=== PATIENT | female | born 1970 | race Caucasian/White ===

== ENCOUNTER 2017-02-02 09:27 | Inpatient (IN) | payer OTHER ==
[2017-02-02 10:45] LABS: % IMMATURE GRANULYOCYTES 0.3 % (0.0-1.1); ABSOLUTE IMMATURE GRANULOCYTES 0.03 10^3/uL (0.00-0.10); ADD DIFF? NO; ADD MORPH? NO; ADD SCAN? NO; ATYPICAL LYMPHOCYTE FLAG 0 (0-99); FRAGMENT RBC FLAG 0 (0-99); HEMOGLOBIN 15.1 g/dL (12.6-16.3); LEFT SHIFT FLG 0 (0-99); LIPEMIA HEMOLYSIS FLAG 80 (0-99); MEAN CELL HEMOGLOBIN 34.4 pg (27.9-34.1); MEAN CELL HEMOGLOBIN CONCENTR. 33.6 g/dL (32.4-36.7); MEAN CELL VOLUME 102.5 fL (81.5-99.8); PLATELET CLUMPS FLAG 20 (0-99); PLATELET COUNT 202 10^3/uL (150-400); RED BLOOD CELL COUNT 4.39 10^6/uL (4.18-5.33); RED CELL DISTRIBUTION WIDTH 12.4 % (11.5-15.2)
[2017-02-02] MEDS ORDERED: levETIRAcetam 500 MG in NS 100 ML IV ONE (10:57)
[2017-02-02 10:58] LABS: ALANINE AMINOTRANSFERASE 22 IU/L (9-52); ALKALINE PHOSPHATASE 61 IU/L (38-126); ANION GAP 12 mEq/L (8-16); ASPARTATE AMINOTRANSFERASE 15 IU/L (14-46); BILIRUBIN,TOTAL 1.1 mg/dL (0.1-1.4); BILIRUBIN-CONJUGATED 0.4 mg/dL (0.0-0.5); BILIRUBIN-UNCONJUGATED 0.7 mg/dL (0.0-1.1); CARBON DIOXIDE 24 mEq/l (22-31); CHLORIDE 107 mEq/L (97-110); CREATININE 0.7 mg/dL (0.6-1.0); ETHANOL SERUM < 10 mg/dL (0-10); GLOMERULAR FILTRATION RATE > 60; GLUCOSE 94 mg/dL (70-100); POTASSIUM 3.7 mEq/L (3.5-5.2); SALICYLATE < 1.0 mg/dL (2.0-20.0); SODIUM 143 mEq/L (134-144); TOTAL PROTEIN 7.2 g/dL (6.3-8.2)
[2017-02-02] MEDS ORDERED: levETIRAcetam 1,000 MG in NS 100 ML IV ONE (11:06)
[2017-02-02] MEDS ORDERED: IOPAMIDOL (ISOVUE 370) 100 ML BTL IV ONE (11:20)
--- NOTE | 2017-02-02 11:39 | EDPHY ---
H & P Smoking Status: Current every day smoker Time Seen by Provider: 02/02/17 09:35 HPI/ROS: CHIEF COMPLAINT: Headache, altered mental status HISTORY OF PRESENT ILLNESS: 46-year-old female presents to the emergency department with headache and altered mental status. The patient states that she developed abrupt onset of a headache 1 week ago, Wednesday. She went to [facility] following day, and the patient states "they did nothing ". The patient presents to the emergency department now with persisting, worsening headache and altered mental status. No vomiting. No diarrhea. She has not eaten much. She does not have a history of alcoholism and has been drinking. Her last drink was last night. She also has a history of chronic back pain and takes oxycodone, 4 tablets daily, and ran out of this medication a few days ago. No abdominal pain. No chest pain or difficulty breathing. She was having some blurry vision although does not notice this now. No double vision. REVIEW OF SYSTEMS: Constitutional: No fever, no chills. Eyes: Blurry vision as above. No double vision ENT: No sore throat. Respiratory: No cough, no shortness of breath. Cardiac: No chest pain. Gastrointestinal: No abdominal pain, vomiting or diarrhea. Genitourinary: No dysuria. Musculoskeletal: No neck or back pain. Skin: No rashes. Neurological: Headache (Maggie Cisneros) Past Medical/Surgical History: Alcoholism, chronic back pain, migraine headaches (Maggie Cisneros M) Social History: (Maggie Cisneros) Physical Exam: General Appearance: lethargic, no distress. Eyes: Pupils equal and round. Extraocular motions are all intact. ENT: Mouth: Mucous membranes moist. Respiratory: No wheezing, rhonchi, or rales, lungs are clear to auscultation. Cardiovascular: Regular rate and rhythm. Gastrointestinal: Abdomen is soft and nontender, no masses, no rebound or guarding, bowel sounds normal. Neurological: lethargic, confused on date and time. cranial nerves II through XII grossly intact Skin: Warm and dry, no rashes. Musculoskeletal: Nontender to palpate along the cervical, thoracic or lumbar spine. Neck is supple. Extremities: Full range of motion and no peripheral edema. Psychiatric: no agitation. (Maggie Cisneros M) Constitutional: Initial Vital Signs Temperature (C) 36.8 C 02/02/17 09:32 Heart Rate 83 02/02/17 09:32 Respiratory Rate 18 02/02/17 09:32 Blood Pressure 135/88 H 02/02/17 09:32 O2 Sat (%) 96 02/02/17 09:32 O2 Delivery Mode Room Air O2 (L/minute) 2 Allergies/Adverse Reactions: No Known Allergies Allergy (Unverified 02/02/17 09:31) Home Medications: Medication Instructions Recorded Gabapentin [Neurontin 300 MG (*)] 300 mg PO BID 02/02/17 Lisinopril [Zestril 10 mg (*)] 10 mg PO DAILY 02/02/17 Naproxen [Naprosyn] 500 - 1,000 mg PO BID 02/02/17 oxyCODONE HCL/ACETAMINOPHEN 1 each PO Q6HRS PRN 02/02/17 [Percocet 10-325 mg Tablet] Medical Decision Making - Diagnostics Imaging Results: Imaging Impressions Head CT 02/02/17 10:34 Impression: Acute subarachnoid hemorrhage with early hydrocephalus. Suspicious for rupture of right anterior communicating or proximal right middle cerebral artery aneurysm. Recommend CT angiography for further evaluation. Results called and discussed with MAGGIE CISNEROS, at 02/02/2017 11:03 . General information for patients regarding this examination can be found at [email or web address]. If you have questions or comments about this report, please contact me at (hospital) or [phone] (cell). ED Course/Re-evaluation: I discussed this case with Maggie Cisneros and reviewed all of the studies including the brain scan. Also laboratory studies. I evaluated the patient and although she has altered mental status she has no peripheral neurologic deficits. We spoken to Dr. Vaca from Neurosurgery. We will prophylax the patient for seizures with 1 g of Keppra IV. She will be admitted to the intensive care unit. The neurosurgical team is down here now. We are watching her alcohol withdrawal. She will receive benzodiazepines as needed based on the CIWA scale. Medicine will consult on the patient in the ICU. (Ant Pascual) Given the abrupt onset of headache and altered mental status, CT scan with out contrast of the brain was ordered which revealed subarachnoid hemorrhage in the midline as well as to the right of midline. The hydrocephalus is noted. Patient also has low density noted on the right side of her brain which could represent early infarct. Case was discussed with Dr. Ant Pascual, secondary supervising physician. She was given 1 g of IV Keppra. I spoke with Dr. Sly Morel, on-call neurosurgeon, who will come to evaluate the patient and patient will be admitted to the ICU. I also spoke with JUAREZ Orellana with hospitalist, who recommended that after the neurosurgeon evaluated the patient, they would be happy to consult on the patient. CT angiogram of the head and neck reveal 5.5 x 5 x 4 mm anterior communicating arterial aneurysm. I spoke with in her Maria Teresa, on-call neurosurgeon, about the findings and he is aware. The patient is planning to be admitted to the ICU with ventriculostomy placement. (Maggie Cisneros) Differential Diagnosis: Headache including but not limited to subarachnoid hemorrhage, migraine headache , tension headache and infectious causes such as meningitis, pharyngitis and sinusitis. (Maggie Cisneros) - Data Points Laboratory Results: Laboratory Results 02/02/17 10:38 02/02/17 10:38 02/02/17 02/02/17 10:38 10:38 WBC 8.91 10^3/uL 10^3/uL (3.80-9.50) RBC 4.39 10^6/uL 10^6/uL (4.18-5.33) Hgb 15.1 g/dL g/dL (12.6-16.3) Hct 45.0 % % (38.0-47.0) MCV 102.5 fL H fL (81.5-99.8) MCH 34.4 pg H pg (27.9-34.1) MCHC 33.6 g/dL g/dL (32.4-36.7) RDW 12.4 % % (11.5-15.2) Plt Count 202 10^3/uL 10^3/uL (150-400) MPV 12.0 fL H fL (8.7-11.7) Neut % (Auto) 74.8 % H % (39.3-74.2) Lymph % (Auto) 19.2 % % (15.0-45.0) Lyman % (Auto) 5.4 % % (4.5-13.0) Eos % (Auto) 0.1 % L % (0.6-7.6) Baso % (Auto) 0.2 % L % (0.3-1.7) Nucleat RBC Rel Count 0.0 % % (0.0-0.2) Absolute Neuts (auto) 6.66 10^3/uL H 10^3/uL (1.70-6.50) Absolute Lymphs (auto) 1.71 10^3/uL 10^3/uL (1.00-3.00) Absolute Monos (auto) 0.48 10^3/uL 10^3/uL (0.30-0.80) Absolute Eos (auto) 0.01 10^3/uL L 10^3/uL (0.03-0.40) Absolute Basos (auto) 0.02 10^3/uL 10^3/uL (0.02-0.10) Absolute Nucleated RBC 0.00 10^3/uL 10^3/uL (0-0.01) Immature Gran % 0.3 % % (0.0-1.1) Immature Gran # 0.03 10^3/uL 10^3/uL (0.00-0.10) Sodium 143 mEq/L mEq/L (134-144) Potassium 3.7 mEq/L mEq/L (3.5-5.2) Chloride 107 mEq/L mEq/L (97-110) Carbon Dioxide 24 mEq/l mEq/l (22-31) Anion Gap 12 mEq/L mEq/L (8-16) BUN 21 mg/dL mg/dL (7-23) Creatinine 0.7 mg/dL mg/dL (0.6-1.0) Estimated GFR > 60 Glucose 94 mg/dL mg/dL (70-100) Calcium 10.0 mg/dL mg/dL (8.5-10.4) Total Bilirubin 1.1 mg/dL mg/dL (0.1-1.4) Conjugated Bilirubin 0.4 mg/dL mg/dL (0.0-0.5) Unconjugated Bilirubin 0.7 mg/dL mg/dL (0.0-1.1) AST 15 IU/L IU/L (14-46) ALT 22 IU/L IU/L (9-52) Alkaline Phosphatase 61 IU/L IU/L (38-126) Total Protein 7.2 g/dL g/dL (6.3-8.2) Albumin 4.0 g/dL g/dL (3.5-5.0) Salicylates < 1.0 mg/dL L mg/dL (2.0-20.0) Acetaminophen < 10 mcg/mL L mcg/mL (10-30) Ethyl Alcohol < 10 mg/dL mg/dL (0-10) Medications Given: Sodium Chloride (Ns) 1,000 mls @ 75 mls/hr IV CONT MILVIA Stop: 08/01/17 12:29 Last Admin: 02/02/17 14:18 Dose: 1,000 mls Nimodipine (Nimotop) 60 mg PO Q4HRS MILVIA Stop: 08/01/17 13:59 Last Admin: 02/02/17 14:00 Dose: Not Given Discontinued Medications Fentanyl (Sublimaze) 25 mcg IVP ONCE ONE Stop: 02/02/17 13:53 Last Admin: 02/02/17 13:58 Dose: 25 mcg Levetiracetam 1,000 mg/ Sodium (Chloride) 110 mls @ 440 mls/hr IV EDNOW ONE Stop: 02/02/17 11:20 Last Admin: 02/02/17 11:59 Dose: 110 mls Lidocaine/Epinephrine (Lidocaine 1%-Epi 1:100,000) 20 ml NB ONCE ONE Stop: 02/02/17 12:49 Last Admin: 02/02/17 13:59 Dose: 20 ml Midazolam HCl (Versed) 0.5 mg IVP ONCE ONE Stop: 02/02/17 13:53 Last Admin: 02/02/17 13:58 Dose: 0.5 mg Departure - Departure Disposition: [facility] Acute Clinical Impression: Subarachnoid hemorrhage, Aneurysm of anterior communicating artery Condition: Serious
[2017-02-02] MEDS ORDERED: ACETAMINOPHEN 325 MG TAB PO PRN (12:30)
[2017-02-02] MEDS ORDERED: LIDO/EPI 1% **Not for Epidural 20 ML MDV NB ONE (12:48)
[2017-02-02] MEDS ORDERED: niCARdipine/NACL 200 ML IV SCH (13:00)
[2017-02-02] MEDS ORDERED: fentaNYL 100 MCG/2 ML INJ ONE ×2 (13:03→15:35)
[2017-02-02] MEDS ORDERED: MIDAZOLAM 2 MG/2 ML VIAL ONE (13:03)
[2017-02-02] MEDS ORDERED: fentaNYL 100 MCG/2 ML INJ IVP ONE (13:52)
[2017-02-02] MEDS ORDERED: MIDAZOLAM 2 MG/2 ML VIAL IVP ONE (13:52)
[2017-02-02] MEDS: niMODipine 30 MG CAP PO SCH ×4 (14:00→21:47)
[2017-02-02] MEDS: NS 1,000 ML IV SCH ×2 (14:18→21:36)
--- NOTE | 2017-02-02 14:56 | ASMTCASEMG ---
Living Arrangements What is your living arrangement? Who do you live Answers: With Spouse with? Case Management Evaluation Functional: ADL / IADL Performance Deficits Due Answers: Chronic Illness to: Psychosocial Needs: Answers: Active Substance Abuse Discharge Plan Comments Coordination Status Comments Notes: 46yo female admitted for SNYDER, AMS, Has a hx of Chronic back pain-narc dependence, ETOH. Pt ran out o f her oxycodone meds. CT Scan revealed SAH, hydrocephalus. Pt lives w/her . CM to follow for D/C needs. Date Signed: 02/02/2017 02:55 PM Electronically Signed By:Claudia Acevedo
--- NOTE | 2017-02-02 15:08 | GCON ---
[f rep st] CONSULTATION TEACHER HEARING IMPAIRED CONSULTATION REASON FOR ADMISSION: Subarachnoid hemorrhage. HISTORY OF PRESENT ILLNESS: The patient is a 46-year-old female with a past medical histor y including alcoholism, chronic back pain and migraine headaches. She presented to the emergency ro om with complaints of headache and altered mental status. She apparently was seen at [facility] on the day prior, and was sent home. She returned with worsening headache, altered menta l status. There is no associated nausea or vomiting. She has been drinking excessive amounts of al cohol. She takes oxycodone for chronic back pain. PAST MEDICAL HISTORY: Significant for alcoholism, chronic back pain, migraines. SOCIAL HISTORY: No history of tobacco use. She drinks alcohol excessively. She is . Family is at the bedside. ALLERGIES: None known to medications. MEDICATION: At home include oxycodone, Naprosyn, lisinopril, gabapentin. PHYSICAL EXAMINATION: VITAL SIGNS: Blood pressure is 128/72, pulse 91, respirations 15, temperatur e 36.9, oxygen saturations 99% on 2 L. GENERAL: She is a mildly overweight, 46-year-old, female, who is somewhat sedated after receiving a ventriculostomy. HEENT: Eyes are PERRLA, EOMI. Throat shows no erythema or tonsillar hypertrophy. NECK: Supple. There is no cervical adenopathy. HEART: Regular rate and rhythm without murmurs, rubs, or gallops. LUNGS: Clear to auscultation. No wheeze or rhonchi. ABDOMEN: Soft, nontender. Bowel sounds are present in all 4 quadrants. E XTREMITIES: Show no clubbing, cyanosis, or edema. LABORATORIES: White count is 8.9, hemoglobin 15, hematocrit 45, platelet count is 202. MCV is elev ated at 102. Sodium 143, potassium 3.7, chloride 107, CO2 24, BUN 21, creatinine 0.7, glucose is 94 . Alcohol level is less than 10. CT scan of the head shows acute subarachnoid hemorrhage with early hydrocephalus. IMPRESSION: 1. Subarachnoid hemorrhage with hydrocephalus, and midline shift. 2. Status post ventriculostomy. 3. Alcoholism. 4. Chronic back pain. RECOMMENDATIONS: 1. Adequate pain control. 2. Deep vein thrombosis and pulmonary embolus prophylaxis. Holding anticoagulation for now. 3. Stress ulcer prophylaxis. 4. Possible clipping per interventional radiology. 5. 6. /[id number]/MODL
--- NOTE | 2017-02-02 15:16 | PDANEPAE ---
ANE History of Present Illness 46 yo F with ACom aneurysm here for IR coil ANE Past Medical History - Pulmonary History Hx Oxygen in Use at Home: No Hx Sleep Apnea: No - Endocrine History Hx Diabetes: No - Neurological & Psychiatric Hx Hx Neurological and Psychiatric Disorders: Yes Neurological / Psychiatric History Comment: alcoholic, last drink last night - Chronic Pain History Chronic Pain: Yes ANE Review of Systems - Exercise capacity Exercise capacity: >=4 METS ANE Patient History - Allergies Allergies/Adverse Reactions: No Known Allergies Allergy (Unverified 02/02/17 09:31) - Home Medications Home medications: home medication list seen and reviewed Home Medications: Gabapentin [Neurontin 300 MG (*)] 300 mg PO BID 02/02/17 [Last Taken Unknown] Lisinopril [Zestril 10 mg (*)] 10 mg PO DAILY 02/02/17 [Last Taken Unknown] Naproxen [Naprosyn] 500 - 1,000 mg PO BID 02/02/17 [Last Taken 02/02/17 1000mg] oxyCODONE HCL/ACETAMINOPHEN [Percocet 10-325 mg Tablet] 1 each PO Q6HRS PRN [Last Taken Unknown] - NPO status NPO Status: no food or drink >8 hours NPO Since - Liquids (Date): 02/01/17 NPO Since - Solids (Date): 02/01/17 NPO Since - Solids (Time): 21:30 - Anes Hx Anes Hx: no prior problems - Smoking Hx Smoking Status: Current every day smoker - Alcohol Use Alcohol Use: Heavy - Family Anes Hx Family Anes Hx: none ANE Labs/Vital Signs - Labs Result Diagrams: 02/02/17 10:38 02/02/17 10:38 - Vital Signs Blood Pressure: 128/72 Heart Rate: 91 Respiratory Rate: 15 O2 Sat (%): 99 Height: 162.56 cm Weight: 68.946 kg ANE Physical Exam - Airway Neck exam: decreased ROM Mallampati Score: Class 3 Mouth exam: poor dentition - Pulmonary Pulmonary: no rales or rhonchi - Cardiovascular Cardiovascular: regular rate and rhythym - ASA Status ASA Status: III, E ANE Anesthesia Plan Anesthesia Plan: general endotracheal anesthesia Lines/Monitors: arterial line
[2017-02-02] MEDS ORDERED: LIDOCAINE 2% 100 MG/5 ML SYR ONE (15:36)
[2017-02-02] MEDS ORDERED: PROPOFOL 200 MG/20 ML VIAL ONE ×2 (15:36)
[2017-02-02] MEDS ORDERED: LORazepam 2 MG/ML INJ IVP ONE (15:37)
--- NOTE | 2017-02-02 15:38 | GHP ---
[f rep st] HISTORY AND PHYSICAL DATE OF ADMISSION: 02/02/2017 CHIEF COMPLAINT: Headache. HISTORY OF PRESENT ILLNESS: The patient is a 46-year-old female, who has been complaining of headaches starting 1 week ago, last Wednesday. She presented to the emergency room at [facility] on Wednesday, and was sent home with pain medications. The patient denies any recent falls, and denies any weakness. The patient presented to the emergency room at [facility] today with some altered mental status and with a headache. She does have a history of alcoholism and states that her last drink was last night. She has a history of chronic back pain as well, and has been taking oxycodone up to 4 times a day, but has been out of this medication for a few days. The patient denies any balance issues and denies any issues with her vision. REVIEW OF SYSTEMS: A 10-point review of systems reviewed and negative aside from what was mentioned in the HPI. PAST MEDICAL HISTORY: Includes lower back pain and high blood pressure. PAST SURGICAL HISTORY: Hysterectomy. FAMILY HISTORY: Mother has diabetes and hypertension. Father had hypertension and of alcoholism. SOCIAL HISTORY: The patient admits to drinking 1 pint of whiskey per night. She smokes 1/2 pack of cigarettes per day. She denies any drug use. MEDICATIONS: Gabapentin, lisinopril, and oxycodone. ALLERGIES: No known drug allergies. PHYSICAL EXAM: VITAL SIGNS: Blood pressure is 128/72, heart rate is 91, respiratory rate 15, oxygen saturation 99% on 2 L nasal cannula, temperature is 36.9 degrees Celsius. HEENT: Head is normocephalic and atraumatic. Pupils are equal, round, reactive to light. EOMI is intact. Full visual wharton to confrontation. RESPIRATORY AND CARDIAC: Deferred. ABDOMEN: Soft, tender. GENITOURINARY AND RECTAL: Deferred. NEUROLOGIC: The patient is awake, but sleepy. She is oriented to name, place, location, but unable to recall date or day of the week. Memory is intact to immediate past and current events. Speech is no aphasia or dysphonia. Cranial nerves 2-12 are grossly intact aside from the facial nerve. Patient does present with a left-sided facial droop. 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 Sensation is grossly intact to light touch through all dermatomal distributions in bilateral lower extremities. Negative straight leg test. Reflexes biceps, triceps, brachioradialis, knee jerk and ankle jerk are 2+/4, toes are downgoing bilaterally. Tripp sign is negative. Babinski sign is negative. There is no evidence of clonus. DIAGNOSTICS: White blood cell count is 8.1, hematocrit is 45, hemoglobin 15.1, platelets are 202. Head CT without contrast performed at 10:47 a.m., demonstrated an acute subarachnoid hemorrhage with some early signs of hydrocephalus. CT angio of the head demonstrated a 5.5 mm anterior communicating artery saccular aneurysm with mild vasospasm of bilateral A-1 segments in the right middle cerebral artery territory. ASSESSMENT AND PLAN: The patient is a 46-year-old female, who presented to the emergency department this morning with a headache and altered mental status. The patient does have a history of alcoholism and admits to drinking 1 pint of whiskey per night. Blood alcohol in the emergency room was negative this morning. She states her last drink was last night. CT angio of the head demonstrated a 5.5 mm anterior communicating artery saccular aneurysm. She also has mild vasospasm of the bilateral A-1 segments and right middle cerebral artery. The patient is able to answer questions. She is somewhat somnolent, but arousable. She is unable to recall the date, and states that today was April 24. The patient will be transported to the intensive care unit, where Dr. Lala will place a right-sided ventriculostomy for hydrocephalus. Plan was discussed with the patient and wishes to proceed with the ventriculostomy placement. Plan was discussed with Dr. Morel as well. The patient was seen and examined in the emergency room by myself and Dr. Lala today, February 02, 2017 at 12:05 p.m. /[id number]/MODL MTDD
[2017-02-02] MEDS ORDERED: IOPAMIDOL (ISOVUE-300) 100 ML BTL ONE ×3 (15:41→19:27)
[2017-02-02] MEDS ORDERED: VERAPAMIL 5 MG/2 ML VIAL ONE ×2 (16:20→17:42)
[2017-02-02] MEDS ORDERED: ALTEPLASE 2 MG VIAL IVP PRN (16:49)
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
[2017-02-02] MEDS ORDERED: ROCURONIUM 100 MG/10 ML VIAL ONE ×2 (17:27)
[2017-02-02] MEDS ORDERED: HEPARIN 10,000 UNIT/10 ML MDV ONE (18:21)
[2017-02-02] MEDS ORDERED: PHENYLEPHRINE 10 MG/ML SDV ONE (18:34)
[2017-02-02] MEDS ORDERED: ALTEPLASE 2 MG VIAL ONE ×2 (18:36→20:00)
[2017-02-02] MEDS ORDERED: ABCIXIMAB 10 MG/5 ML VIAL IVP ONE (18:45)
[2017-02-02] MEDS ORDERED: PROPOFOL/EMULSION 500 MG/50 ML BOTTLE IV ONE ×2 (19:12→20:03)
[2017-02-02] MEDS ORDERED: MANNITOL 20% 50 GM/250 ML BAG IV ONE (19:12)
[2017-02-02] MEDS ORDERED: fentaNYL 100 MCG/2 ML INJ IVP PRN (20:26)
[2017-02-02] MEDS ORDERED: NALOXONE HCL 0.4 MG/ML INJ IVP PRN (20:26)
[2017-02-02] MEDS: SODIUM Cl 3% 500 ML IV SCH ×2 (21:25→21:36)
[2017-02-02 21:30] LABS: BASE EXCESS -1.9 mEq/L (-2.5-2.5); BICARBONATE 21 mEq/L (22-26); HEMATOCRIT 38.3 % (38.0-47.0); HEMOGLOBIN 12.9 g/dL (12.6-16.3); MEAN CELL HEMOGLOBIN CONCENTR. 33.7 g/dL (32.4-36.7); MEASURED OXYGEN SATURATION 99 % (92-95); PCO2 35 mmHg (34-38); PO2 173 mmHg (65-75); TCO2 22 mEq/L (23-27)
[2017-02-02 21:31] LABS: END TIDAL CO2 30; O2 CONCENTRATIION 100 % (0-100); P/F RATIO 173 RATIO; SIMV YES
[2017-02-02 21:32] LABS: PATIENT RATE 20; PRESSURE SUPPORT 7
[2017-02-02 21:33] LABS: MEAN CELL HEMOGLOBIN 34.8 pg (27.9-34.1); MEAN CELL VOLUME 103.2 fL (81.5-99.8); RED BLOOD CELL COUNT 3.71 10^6/uL (4.18-5.33); RED CELL DISTRIBUTION WIDTH 12.5 % (11.5-15.2)
[2017-02-02] MEDS: NOREPINEPHRINE BITARTRATE 16 MG in D5W 250 ML IV SCH (21:36)
[2017-02-02] MEDS: levETIRAcetam 750 MG in NS 100 ML IV SCH (21:48)
[2017-02-02 21:53] LABS: ANION GAP 9 mEq/L (8-16); CALCIUM 7.9 mg/dL (8.5-10.4); CARBON DIOXIDE 21 mEq/l (22-31); CHLORIDE 111 mEq/L (97-110); CREATININE 0.6 mg/dL (0.6-1.0); GLOMERULAR FILTRATION RATE > 60; GLUCOSE 109 mg/dL (70-100); POTASSIUM 3.6 mEq/L (3.5-5.2); SODIUM 141 mEq/L (134-144)
[2017-02-02] MEDS: PROPOFOL/EMULSION 100 ML IV SCH (22:11)
[2017-02-02] MEDS: fentaNYL/NACL 100 ML IV SCH (23:24)
[2017-02-02] MEDS ORDERED: DOPamine/DEXTROSE/250 ML BAG IV ONE (23:43)
--- NOTE | 2017-02-03 00:09 | GPN ---
[f rep st] PROCEDURE NOTE DATE OF PROCEDURE: 02/02/2017 PREPROCEDURE DIAGNOSIS: Hydrocephalus, aneurysmal subarachnoid hemorrhage. POSTPROCEDURE DIAGNOSIS: Hydrocephalus, aneurysmal subarachnoid hemorrhage. PROCEDURE: Right frontal twist drill placement of ventriculostomy catheter. TECHNICAL COORDINATOR: María Elena Gallo NP EBL: 5 cc. COMPLICATIONS: None. INDICATIONS: The patient is a 46-year-old, who about a week ago suffered an aneurysmal subarachnoid hemorrhage and was found to have a ruptured aneurysm on CT scan today. She did have hydrocephalus and was extremely somnolent. She was confused with answers to questions but she did follow commands . She had a prominent left facial droop and weakness on the left side, and CT scan demonstrated jacqueline e possible evidence of ischemia in the right frontal region but there was diffuse basilar subarachno id hemorrhage and hydrocephalus. We suggested ventriculostomy. The risk of aneurysmal rupture, cat heter malposition, hemorrhage into the brain, , infection, need for catheter changes, coma, str solo, paralysis, and bleeding into the brain along the catheter track was discussed. Family understo od there was risk to the procedure but the risk of not doing the procedure was greater. They wanted to proceed despite these risks. PROCEDURE IN DETAIL: The patient was given just a very low-dose of Versed and Fentanyl. She was aw jarrod during the procedure and followed commands but she was very comfortable. Her head was sterilely prepped and draped in the usual fashion. We clipped a tiny portion of hair over Armen's point. I nfiltrated the skin with lidocaine with epinephrine and then made a 1 cm incision just in front of t he coronal suture and about 2 cm off the midline. We drilled a hole in the right frontal bone and brendon girard placed a ventriculostomy catheter down in the right frontal horn of the ventricle. A single pas s was made. There was return of slightly blood-tinged CSF but it was mostly clear. It was tunneled posteriorly, secured in place, and the incision was closed. It was connected to a Jacob drainage system and her ICPs were running about 15 mmHg. She tolerated the procedure well and was awake afte r the procedure and throughout the procedure. /[id number]/MODL
[2017-02-03] MEDS: niMODipine 30 MG CAP PO SCH ×3 (02:17→10:02)
[2017-02-03] MEDS ORDERED: PROPOFOL/EMULSION 500 MG/50 ML BOTTLE IV ONE (03:55)
[2017-02-03] MEDS: PROPOFOL/EMULSION 100 ML IV SCH ×2 (05:07→18:37)
[2017-02-03] MEDS: SODIUM Cl 3% 500 ML IV SCH ×2 (07:58→18:05)
[2017-02-03 08:06] LABS: % IMMATURE GRANULYOCYTES 0.5 % (0.0-1.1); ABSOLUTE IMMATURE GRANULOCYTES 0.07 10^3/uL (0.00-0.10); ADD DIFF? NO; ADD MORPH? NO; ADD SCAN? YES; ATYPICAL LYMPHOCYTE FLAG 0 (0-99); FRAGMENT RBC FLAG 0 (0-99); HEMATOCRIT 41.5 % (38.0-47.0); HEMOGLOBIN 13.8 g/dL (12.6-16.3); LEFT SHIFT FLG 10 (0-99); LIPEMIA HEMOLYSIS FLAG 80 (0-99); MEAN CELL HEMOGLOBIN 34.4 pg (27.9-34.1); MEAN CELL HEMOGLOBIN CONCENTR. 33.3 g/dL (32.4-36.7); MEAN CELL VOLUME 103.5 fL (81.5-99.8); MEAN PLATELET VOLUME 12.1 fL (8.7-11.7); PLATELET COUNT 216 10^3/uL (150-400); RED BLOOD CELL COUNT 4.01 10^6/uL (4.18-5.33); RED CELL DISTRIBUTION WIDTH 12.4 % (11.5-15.2)
--- NOTE | 2017-02-03 08:06 | SOAPPROG ---
SOAP Progress Note Assessment/Plan: Assessment: 46 yo F POD #1 coiling of acomm aneursym Plan: neuro: ICPs stable at 5 -6 mmhg this am on nimodipine for vasospasm Na at 147, on 3% for goal between 145-155 on keppra keep total IVF at 120 ml/hr SBP goal between 140-180 mmhg please call with neuro changes discussed with Dr Morel 02/03/17 08:01 Subjective: chart reviewed Objective: Vital Signs Temp Pulse Resp BP Pulse Ox 37.9 C 76 17 167/74 H 98 02/03/17 04:00 02/03/17 07:00 02/03/17 07:00 02/03/17 07:00 02/03/17 07:00 Laboratory Results 02/02/17 21:25 02/03/17 02:00 02/02/17 02/03/17 02/04/17 05:59 05:59 05:59 Intake Total 1256 Output Total 2931 16 Balance -1675 -16 intubated/sedated with propofol/fentanyl partially opens eyes to voice pupils: 3 mm ou subtle left facial droop slight withdraw to painful stimuli EVD site clean dry and intact ICD10 Worksheet Patient Problems: Problems Problem Status Onset Aneurysm of anterior communicating artery Acute Subarachnoid hemorrhage Acute
[2017-02-03 08:14] LABS: PLATELET CLUMPS FLAG 300 (0-99)
[2017-02-03 08:27] LABS: ANION GAP 13 mEq/L (8-16); CALCIUM 8.9 mg/dL (8.5-10.4); CARBON DIOXIDE 20 mEq/l (22-31); CHLORIDE 115 mEq/L (97-110); CREATININE 0.5 mg/dL (0.6-1.0); GLOMERULAR FILTRATION RATE > 60; GLUCOSE 134 mg/dL (70-100); POTASSIUM 3.6 mEq/L (3.5-5.2); SODIUM 148 mEq/L (134-144)
[2017-02-03 08:40] LABS: SCAN NEGATIVE
[2017-02-03] MEDS: levETIRAcetam 750 MG in NS 100 ML IV SCH ×2 (09:05→20:42)
--- NOTE | 2017-02-03 09:14 | PDINTPN ---
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 Oxygen requirements are minimal. -consider assessment for extubation * Alcoholism-continue CIWA protocol * Chronic back pain * Hypertension-controlled * Sedation-adequate * VTE prophylaxis-hold anticoagulation for now continue SCDs * Nutrition none-hold for now Case discussed with Nursing and Respiratory therapy 35 minutes of critical care time spent with patient Subjective: Sedated but arousable. Objective: Vital Signs Temp Pulse Resp BP Pulse Ox 37.7 C 84 17 149/63 H 98 02/03/17 08:00 02/03/17 09:00 02/03/17 09:00 02/03/17 09:00 02/03/17 09:00 Laboratory Results 02/03/17 07:57 02/03/17 07:57 02/02/17 02/03/17 02/04/17 05:59 05:59 05:59 Intake Total 1256 Output Total 2931 671 Balance -1675 -671 Chest [id number] by myself. Endotracheal tube in good position. Otherwise clear - Time Spent With Patient Time Spent With Patient: 35 minutes of critical care time spent with patient Physical Exam - Physical Exam General Appearance: other (Sedated) EENT: PERRL/EOMI, ET tube Neck: non-tender, full range of motion Respiratory: chest non-tender, lungs clear, normal breath sounds Cardiac/Chest: normal peripheral pulses, regular rate, rhythm Peripheral Pulses: 2+: carotid (R), carotid (L), femoral (R), femoral (L), dorsalis-pedis (R), dorsalis-pedis (L) Abdomen: normal bowel sounds, non-tender, soft Pelvic Exam: deferred Rectal: deferred Skin: normal color, warm/dry Extremities: normal range of motion, non-tender, normal inspection, normal capillary refill Neuro/Psych: other (Sedated) ICD10 Worksheet Patient Problems: Problems Problem Status Onset Aneurysm of anterior communicating artery Acute Subarachnoid hemorrhage Acute
--- NOTE | 2017-02-03 11:08 | HOSPPROG ---
Hospitalist Progress Note Assessment/Plan: 46 yo F w probable alcoholism here w SAH 2/2 aneurysm rupture sah: intubated, sedated difficult to assess neuro exam given sedation bp: management per neurosurgery currently on pressors alcohol: at risk for withdraal, but not showing hyper adrenergic signs now continue CIWA proh: scd's lmwh contraindicated hypernatremia: iatrogenic follow dispo: icu risk: high Subjective: case d/w dr mariscal. cxr- intubated, no airspace disease (interp by me). s/p coiling of embolism Objective: Vital Signs Temp Pulse Resp BP Pulse Ox 37.7 C 67 16 157/69 H 98 02/03/17 08:00 02/03/17 10:00 02/03/17 10:00 02/03/17 10:00 02/03/17 10:00 Laboratory Results 02/03/17 07:57 02/03/17 07:57 02/02/17 02/03/17 02/04/17 05:59 05:59 05:59 Intake Total 1256 Output Total 2931 684 Balance -1329 -174 - Physical Exam Constitutional: appears nourished, other (intubated, sedated) Eyes: PERRL, anicteric sclera Ears, Nose, Mouth, Throat: moist mucous membranes, hearing normal Cardiovascular: regular rate and rhythym, no murmur, rub, or gallop Respiratory: no respiratory distress, no rales or rhonchi Gastrointestinal: normoactive bowel sounds, soft, non-tender abdomen Genitourinary: no bladder fullness, sanchez in urethra Skin: warm, normal color Musculoskeletal: full muscle strength Neurologic: No AAOx3 Psychiatric: interacting appropriately, not anxious Lymph, Heme, Immunologic: no cervical LAD ICD10 Worksheet Patient Problems: Problems Problem Status Onset Aneurysm of anterior communicating artery Acute Subarachnoid hemorrhage Acute
--- NOTE | 2017-02-03 11:27 | POSTANESTH ---
Post Anesthetic Evaluation Cardiovascular Status: Normal, Stable, Similar to Pre-Op Cond Respiratory Status: Normal, Stable, Requires Airway Assist (intubated) Level of Consciousness/Mental Status: Unconscious Pain Control: Adequate, Prn Tx Ordered Nausea/Vomiting Control: Adequate, Prn Tx Ordered Complications Possibly Related to Anesthesia: None Noted
[2017-02-03] MEDS: niMODipine 33.333 MG/ML UDL TUBE SCH ×3 (13:59→21:21)
[2017-02-03] MEDS: NS 1,000 ML IV SCH (17:00)
[2017-02-03] MEDS: fentaNYL/NACL 100 ML IV SCH (18:33)
[2017-02-03] MEDS: ACETAMINOPHEN 650 MG/20.3 ML UDCUP PO PRN (18:34)
[2017-02-04] MEDS: niMODipine 33.333 MG/ML UDL TUBE SCH ×6 (02:26→21:01)
[2017-02-04] MEDS: ACETAMINOPHEN 650 MG/20.3 ML UDCUP PO PRN ×3 (02:26→20:48)
[2017-02-04] MEDS: NOREPINEPHRINE BITARTRATE 16 MG in D5W 250 ML IV SCH ×2 (03:31→12:55)
[2017-02-04] MEDS: SODIUM Cl 3% 500 ML IV SCH ×2 (03:31→21:46)
[2017-02-04] MEDS: PROPOFOL/EMULSION 100 ML IV SCH ×2 (03:31→13:59)
[2017-02-04 05:24] LABS: % IMMATURE GRANULYOCYTES 0.4 % (0.0-1.1); ABSOLUTE IMMATURE GRANULOCYTES 0.07 10^3/uL (0.00-0.10); ADD DIFF? NO; ADD MORPH? NO; ADD SCAN? NO; ATYPICAL LYMPHOCYTE FLAG 0 (0-99); FRAGMENT RBC FLAG 0 (0-99); HEMATOCRIT 38.9 % (38.0-47.0); HEMOGLOBIN 12.7 g/dL (12.6-16.3); LEFT SHIFT FLG 60 (0-99); LIPEMIA HEMOLYSIS FLAG 80 (0-99); MEAN CELL HEMOGLOBIN 34.7 pg (27.9-34.1); MEAN CELL HEMOGLOBIN CONCENTR. 32.6 g/dL (32.4-36.7); MEAN CELL VOLUME 106.3 fL (81.5-99.8); PLATELET CLUMPS FLAG 0 (0-99); PLATELET COUNT 189 10^3/uL (150-400); RED BLOOD CELL COUNT 3.66 10^6/uL (4.18-5.33); RED CELL DISTRIBUTION WIDTH 12.5 % (11.5-15.2)
[2017-02-04 05:37] LABS: ANION GAP 12 mEq/L (8-16); CALCIUM 8.8 mg/dL (8.5-10.4); CARBON DIOXIDE 20 mEq/l (22-31); CHLORIDE 123 mEq/L (97-110); CREATININE 0.5 mg/dL (0.6-1.0); GLOMERULAR FILTRATION RATE > 60; GLUCOSE 190 mg/dL (70-100); POTASSIUM 3.4 mEq/L (3.5-5.2); SODIUM 155 mEq/L (134-144)
[2017-02-04 05:54] LABS: BASE EXCESS -0.6 mEq/L (-2.5-2.5); BICARBONATE 22 mEq/L (22-26); MEASURED OXYGEN SATURATION 98 % (92-95); PCO2 34 mmHg (34-38); PO2 111 mmHg (65-75); TCO2 23 mEq/L (23-27)
[2017-02-04 05:59] LABS: CPAP YES; O2 CONCENTRATIION 40 % (0-100); P/F RATIO 278 RATIO; PATIENT RATE 26; PRESSURE SUPPORT 10
--- NOTE | 2017-02-04 07:42 | NEUSURGPN ---
Assessment/Plan: Assessment: 46 yo F POD #2 coiling of acomm aneursym Plan: neuro: ICPs stable at 3-7 mmhg over night on nimodipine for vasospasm Na at 155, on 3% for goal between 145-155. Will reduce to 40cc/hr keep total IVF at 120 ml/hr Continue Keppra SBP goal between 140-180 mmhg, DO NOT START ANY additional antihypertensives unless cleared by Dr. Morel please call with neuro changes Seen by Dr Morel and myself Subjective: Unable to obtain Objective: Opens eyes to voice, PERRLA. Ventric light pink tinged. Ventric site c/d/i. withdraw to pain. Not follows commands Catheter Insertion Date: 02/02/17 - Physician Patient Seen by : Maria Teresa Neurosurgery Physical Exam - Vitals, I&O, Labs I and O 02/03/17 02/04/17 02/05/17 05:59 05:59 05:59 Intake Total 1256 3317 Output Total 2931 3345 84 Balance -1675 -28 -84 Weight 68.946 kg 69.6 kg Intake: IV Infused (ml) 1256 3317 DOPamine/DEXTROSE 250 ml 79 171 @ Titrate IV CONT [facility]VIA Rx# :[id number] Norepinephrine Bitartrate 54 285 16 mg In D5w 250 ml @ Per Protocol IV CONT [facility]IA Rx#:[id number] Ns 1,000 ml @ 75 mls/hr 450 1231 IV CONT MILVIA Rx#: [id number] Propofol/Emulsion 100 ml 120 273 @ Per Protocol IV CONT [facility] Rx#:[id number] SODIUM Cl 3% 500 ml @ 50 427 1196 mls/hr IV CONT [facility] Rx#: [id number] fentaNYL/NACL 100 ml @ 26 61 Per Protocol IV CONT MILVIA Rx#:[id number] levETIRAcetam 750 mg In 100 Ns 100 ml @ 420 mls/hr IV BID MILVIA Rx#:[id number] Output: Urine (ml) 2645 3020 75 Catheter 2645 3020 75 OG Tube Output (ml) 0 Large Bore (>12 Indonesian) 0 Non-weighted Stomach 16 Indonesian CSF Drainage Amount 286 325 9 Right Ventriculostomy 286 325 9 Vital Signs Temp Pulse Resp BP Pulse Ox 38.6 C H 86 19 141/77 H 98 02/04/17 05:00 02/04/17 07:00 02/04/17 07:00 02/04/17 07:00 02/04/17 07:00 Laboratory Results 02/04/17 05:15 02/04/17 05:15 ICD10 Worksheet Patient Problems: Problems Problem Status Onset Aneurysm of anterior communicating artery Acute Subarachnoid hemorrhage Acute
[2017-02-04] MEDS: levETIRAcetam 750 MG in NS 100 ML IV SCH ×2 (08:09→20:47)
--- NOTE | 2017-02-04 08:42 | PDINTPN ---
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 Oxygen requirements are minimal. -she did well with CPAP trial this morning. Will assess for extubation later on today * Alcoholism-continue CIWA protocol * Chronic back pain * Hypertension-controlled * Sedation-adequate * VTE prophylaxis-hold anticoagulation for now continue SCDs * Nutrition none-hold for now Case discussed with Nursing and Respiratory therapy 35 minutes of critical care time spent with patient Subjective: Sedated on mechanical ventilation. Arousable per nurse Objective: Vital Signs Temp Pulse Resp BP Pulse Ox 38.4 C H 72 18 157/79 H 99 02/04/17 08:00 02/04/17 08:00 02/04/17 08:00 02/04/17 08:00 02/04/17 08:00 Laboratory Results 02/04/17 05:15 02/04/17 05:15 02/03/17 02/04/17 02/05/17 05:59 05:59 05:59 Intake Total 1256 3317 Output Total 2931 3345 444 Balance -1675 -28 -444 Laboratory Results 02/04/17 05:15 02/04/17 05:15 02/04/17 05:40 Patient Temperature 38.9 DEGREES DEGREES pCO2 34 mmHg mmHg (34 - 38) pO2 111 mmHg H mmHg (65 - 75) Total CO2 23 mEq/L mEq/L (23 - 27) ABG pH 7.43 (7.35 - 7.45) ABG PO2/FiO2 Ratio 278 RATIO RATIO ABG HCO3 22 mEq/L mEq/L (22 - 26) ABG O2 Saturation 98 % H % (92 - 95) ABG Base Excess -0.6 mEq/L mEq/L (-2.5 - 2.5) O2 Concentration % 40 % % Actual Respiration Rate 26 PEEP 5 Pressure Support 10 CPAP YES - Time Spent With Patient Time Spent With Patient: 35 Physical Exam - Physical Exam General Appearance: other (Sedated) EENT: PERRL/EOMI, normal ENT inspection, ET tube Neck: non-tender, full range of motion, supple, normal inspection Respiratory: chest non-tender, lungs clear, normal breath sounds Cardiac/Chest: normal peripheral pulses, regular rate, rhythm Peripheral Pulses: 2+: carotid (R), carotid (L), femoral (R), femoral (L), dorsalis-pedis (R), dorsalis-pedis (L) Abdomen: normal bowel sounds, non-tender, soft Pelvic Exam: deferred Rectal: deferred Skin: normal color, warm/dry Neuro/Psych: No alert (Sedated) ICD10 Worksheet Patient Problems: Problems Problem Status Onset Aneurysm of anterior communicating artery Acute Subarachnoid hemorrhage Acute
[2017-02-04] MEDS ORDERED: MAGNESIUM HYDROXIDE 30 ML UDCUP PO PRN (09:28)
[2017-02-04] MEDS ORDERED: BISACODYL 10 MG SUPP PR PRN (09:28)
[2017-02-04] MEDS ORDERED: POLYETHYLENE GLYCOL 3350 17 GM PKT PO PRN (09:28)
[2017-02-04] MEDS ORDERED: LACTULOSE 20 GM/30 ML UDCUP PO PRN (09:28)
--- NOTE | 2017-02-04 09:31 | HOSPPROG ---
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 febrile Objective: Vital Signs Temp Pulse Resp BP Pulse Ox 38.4 C H 65 16 162/76 H 100 02/04/17 08:00 02/04/17 09:00 02/04/17 09:00 02/04/17 09:00 02/04/17 09:00 Laboratory Results 02/04/17 05:15 02/04/17 05:15 02/03/17 02/04/17 02/05/17 05:59 05:59 05:59 Intake Total 1256 3317 Output Total 2931 7057 459 [facility] -1675 -28 -459 - Physical Exam Constitutional: other (intubated, sedated) Eyes: PERRL, anicteric sclera Ears, Nose, Mouth, Throat: moist mucous membranes, hearing normal Cardiovascular: regular rate and rhythym, no murmur, rub, or gallop Respiratory: no respiratory distress, no rales or rhonchi Gastrointestinal: normoactive bowel sounds, soft, non-tender abdomen Genitourinary: sanchez in urethra Skin: warm, normal color Musculoskeletal: full muscle strength, no muscle tenderness Neurologic: No AAOx3 Psychiatric: interacting appropriately, not anxious ICD10 Worksheet Patient Problems: Problems Problem Status Onset Aneurysm of anterior communicating artery Acute Subarachnoid hemorrhage Acute
[2017-02-04] MEDS: FAMOTIDINE 20 MG/NACL 50 ML IV SCH ×2 (09:47→20:47)
[2017-02-04] MEDS: PETROLAT,WHT/MIN OIL/SOD CHL 3.5 GM OPHT.OINT EACHEYE PRN ×2 (10:07→20:47)
[2017-02-04] MEDS: NS IT SCH ×2 (12:36→23:03)
[2017-02-04] MEDS: MILRINONE LACTATE IT SCH ×2 (12:36→23:03)
[2017-02-04] MEDS: NS 1,000 ML IV SCH (12:54)
--- NOTE | 2017-02-04 13:56 | PDANEPAE ---
ANE Past Medical History - Cardiovascular History Hx Hypertension: Yes Hx Arrhythmias: No - Pulmonary History Hx Oxygen in Use at Home: No Hx Sleep Apnea: No - Endocrine History Hx Diabetes: No Hypothyroid: No Hyperthyroid: No Obesity: no - Neurological & Psychiatric Hx Hx Neurological and Psychiatric Disorders: Yes Neurological / Psychiatric History Comment: alcoholic - Other Health History Other Health History: chronic pain - Chronic Pain History Chronic Pain: Yes ANE Review of Systems - Exercise capacity Exercise capacity: >=4 METS ANE Patient History - Allergies Allergies/Adverse Reactions: No Known Allergies Allergy (Unverified 02/02/17 09:31) - Home Medications Home Medications: Gabapentin [Neurontin 300 MG (*)] 300 mg PO BID 02/02/17 [Last Taken Unknown] Lisinopril [Zestril 10 mg (*)] 10 mg PO DAILY 02/02/17 [Last Taken Unknown] Naproxen [Naprosyn] 500 - 1,000 mg PO BID 02/02/17 [Last Taken 02/02/17 1000mg] oxyCODONE HCL/ACETAMINOPHEN [Percocet 10-325 mg Tablet] 1 each PO Q6HRS PRN [Last Taken Unknown] - NPO status NPO Since - Liquids (Date): 02/01/17 NPO Since - Solids (Date): 02/01/17 NPO Since - Solids (Time): 21:30 - Smoking Hx Smoking Status: Current every day smoker - Alcohol Use Alcohol Use: Heavy ANE Labs/Vital Signs - Labs Result Diagrams: 02/04/17 05:15 02/04/17 11:00 - Vital Signs Blood Pressure: 153/74 Heart Rate: 59 Respiratory Rate: 16 O2 Sat (%): 100 Height: 162.56 cm Weight: 69.6 kg ANE Anesthesia Plan Anesthesia Plan: general endotracheal anesthesia (pt intubated, ventilated in ICU)
[2017-02-04] MEDS: BACITRACIN OINTMENT 1 PACKET TP SCH ×2 (16:11→20:47)
[2017-02-04] MEDS ORDERED: PROPOFOL 200 MG/20 ML VIAL ONE (16:40)
[2017-02-04] MEDS ORDERED: VERAPAMIL 5 MG/2 ML VIAL MISC ONE (17:00)
[2017-02-04] MEDS ORDERED: IOPAMIDOL (ISOVUE-300) 100 ML BTL ONE (17:09)
--- NOTE | 2017-02-04 20:11 | POSTANESTH ---
Post Anesthetic Evaluation Cardiovascular Status: Similar to Pre-Op Cond Respiratory Status: Similar to Pre-op Cond. Level of Consciousness/Mental Status: Unconscious (sedated intubated) Pain Control: Adequate, Prn Tx Ordered Nausea/Vomiting Control: Adequate, Prn Tx Ordered Complications Possibly Related to Anesthesia: None Noted
[2017-02-04] MEDS ORDERED: SENNOSIDES/DOCUSATE SODIUM TAB PO SCH (21:00)
[2017-02-04] MEDS: SENNOSIDES 17.6 MG/10 ML UDL TUBE SCH (21:07)
[2017-02-05] MEDS: niMODipine 33.333 MG/ML UDL TUBE SCH ×6 (02:18→21:38)
[2017-02-05] MEDS: PROPOFOL/EMULSION 50 ML IV SCH ×3 (02:18→19:38)
[2017-02-05] MEDS: NOREPINEPHRINE BITARTRATE 16 MG in D5W 250 ML IV SCH ×2 (04:12→22:03)
[2017-02-05] MEDS: NS 1,000 ML IV SCH ×2 (04:12→18:21)
[2017-02-05 05:08] LABS: % IMMATURE GRANULYOCYTES 0.5 % (0.0-1.1); ADD DIFF? NO; ADD MORPH? NO; ADD SCAN? NO; ATYPICAL LYMPHOCYTE FLAG 0 (0-99); FRAGMENT RBC FLAG 0 (0-99); HEMATOCRIT 40.8 % (38.0-47.0); HEMOGLOBIN 13.1 g/dL (12.6-16.3); LEFT SHIFT FLG 10 (0-99); LIPEMIA HEMOLYSIS FLAG 80 (0-99); MEAN CELL HEMOGLOBIN 34.3 pg (27.9-34.1); MEAN CELL HEMOGLOBIN CONCENTR. 32.1 g/dL (32.4-36.7); MEAN CELL VOLUME 106.8 fL (81.5-99.8); MEAN PLATELET VOLUME 12.1 fL (8.7-11.7); PLATELET CLUMPS FLAG 0 (0-99); PLATELET COUNT 201 10^3/uL (150-400); RED BLOOD CELL COUNT 3.82 10^6/uL (4.18-5.33); RED CELL DISTRIBUTION WIDTH 12.7 % (11.5-15.2)
[2017-02-05 05:18] LABS: ANION GAP 13 mEq/L (8-16); CALCIUM 8.8 mg/dL (8.5-10.4); CARBON DIOXIDE 23 mEq/l (22-31); CHLORIDE 121 mEq/L (97-110); CREATININE 0.6 mg/dL (0.6-1.0); GLOMERULAR FILTRATION RATE > 60; GLUCOSE 147 mg/dL (70-100); SODIUM 157 mEq/L (134-144)
[2017-02-05] MEDS: ACETAMINOPHEN 650 MG/20.3 ML UDCUP PO PRN ×3 (06:33→21:21)
[2017-02-05] MEDS: MILRINONE LACTATE IT SCH ×3 (07:35→23:03)
[2017-02-05] MEDS: NS IT SCH ×3 (07:35→23:03)
[2017-02-05] MEDS ORDERED: PROTOCOL MAGNESIUM 1 DOSE IV PRN (08:35)
[2017-02-05] MEDS ORDERED: PROTOCOL POTASSIUM 1 DOSE MISC PRN (08:35)
[2017-02-05] MEDS: levETIRAcetam 750 MG in NS 100 ML IV SCH ×2 (08:40→21:16)
[2017-02-05] MEDS: BACITRACIN OINTMENT 1 PACKET TP SCH ×2 (08:40→20:08)
[2017-02-05] MEDS: SENNOSIDES 17.6 MG/10 ML UDL TUBE SCH ×2 (08:40→20:32)
[2017-02-05] MEDS: PETROLAT,WHT/MIN OIL/SOD CHL 3.5 GM OPHT.OINT EACHEYE PRN ×3 (08:40→21:46)
[2017-02-05] MEDS: FAMOTIDINE 20 MG/NACL 50 ML IV SCH ×2 (08:40→20:17)
[2017-02-05] MEDS: fentaNYL/NACL 100 ML IV SCH (08:41)
--- NOTE | 2017-02-05 08:48 | PDINTPN ---
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 Oxygen requirements are minimal. -not cleared up from mental status standpoint for extubation * Alcoholism-no evidence of withdrawal * Chronic back pain * Hypertension-controlled * Sedation-adequate * VTE prophylaxis-hold anticoagulation for now continue SCDs * Nutrition none- -will start tube feeds today Case discussed with Nursing and Respiratory therapy 40 minutes of critical care time spent with patient Subjective: On mechanical ventilation. Poorly arousable on minimal sedation. Occasionally open eyes Objective: Vital Signs Temp Pulse Resp BP Pulse Ox 39.0 C H 85 21 H 162/92 H 100 02/05/17 08:00 02/05/17 08:00 02/05/17 08:00 02/05/17 08:00 02/05/17 08:00 Laboratory Results 02/05/17 04:55 02/05/17 04:55 02/04/17 02/05/17 02/06/17 05:59 05:59 05:59 Intake Total 3317 2836 Output Total 3348 3402 32 Balance -28 -566 -32 - Time Spent With Patient Time Spent With Patient: 40 minutes of critical care time Physical Exam - Physical Exam General Appearance: unresponsive, No alert EENT: PERRL/EOMI, ET tube Neck: non-tender, full range of motion Respiratory: chest non-tender, lungs clear, normal breath sounds Cardiac/Chest: normal peripheral pulses, regular rate, rhythm Peripheral Pulses: 2+: carotid (R), carotid (L), femoral (R), femoral (L), dorsalis-pedis (R), dorsalis-pedis (L) Abdomen: normal bowel sounds, non-tender, soft Pelvic Exam: deferred Rectal: deferred Skin: normal color, warm/dry Neuro/Psych: No alert ICD10 Worksheet Patient Problems: Problems Problem Status Onset Aneurysm of anterior communicating artery Acute Subarachnoid hemorrhage Acute
[2017-02-05] MEDS: POTASSIUM Cl (KCl) 50 ML IV SCH ×5 (08:56→21:36)
--- NOTE | 2017-02-05 09:06 | NEUSURGPN ---
Assessment/Plan: Assessment: 46 yo F POD #3 coiling of acomm aneursym Plan: neuro: ICPs 11-15 mmhg over night on nimodipine for vasospasm Vasospasm improved on angiogram done yesterday by Dr Morel Na at 157, Dr. Morel dc'd 3% Na keep total IVF at 120 ml/hr, adding tube feeds today Continue Keppra SBP goal between 140-180 mmhg, DO NOT START ANY additional antihypertensives unless cleared by Dr. Morel please call with neuro changes Intrathecal Milrinone injections Q8 hours - Dr Morel gave injection this AM. Seen by Dr Morel and myself Subjective: Pt intubated in bed. Unable to obtain. Objective: Intubated Opens eyes to voice PERRL withdraws from pain Ventric site cdi with blood tinged CSF in drain Garcia in place Urinary Catheter in Place: Yes Urinary Catheter Indication: Surgical Requirement Catheter Insertion Date: 02/02/17 - Physician Discussed Patient with Dr.: Morel Patient Seen by : Maria Teresa Neurosurgery Physical Exam - Vitals, I&O, Labs I and O 02/04/17 02/05/17 02/06/17 05:59 05:59 05:59 Intake Total 3317 2836 Output Total 3345 3402 32 Balance -28 -566 -32 Weight 69.6 kg 66.5 kg Intake: IV Intake (ml) 157 IV Infused (ml) 3317 2679 DOPamine/DEXTROSE 250 ml 171 @ Titrate IV CONT [facility] Rx# :[id number] Famotidine 20 mg/NaCl 50 50 ml @ 200 mls/hr IV Q12HRS MILVIA Rx#:[id number] Norepinephrine Bitartrate 285 305 16 mg In D5w 250 ml @ Per Protocol IV CONT MILVIA Rx#:[id number] Ns 1,000 ml @ 75 mls/hr 1231 1459 IV CONT MILVIA Rx#: [id number] Propofol/Emulsion 100 ml 273 111 @ Per Protocol IV CONT MILVIA Rx#:[id number] SODIUM Cl 3% 500 ml @ 20 1196 603 mls/hr IV CONT MILVIA Rx#: [id number] fentaNYL/NACL 100 ml @ 61 51 Per Protocol IV CONT MILVIA Rx#:[id number] levETIRAcetam 750 mg In 100 100 Ns 100 ml @ 420 mls/hr IV BID MILVIA Rx#:[id number] Output: Urine (ml) 3020 3125 Catheter 3020 3125 OG Tube Output (ml) 0 Large Bore (>12 Mauritian) 0 Non-weighted Stomach 16 [place] CSF Drainage Amount 325 277 32 Right Ventriculostomy 325 277 32 Vital Signs Temp Pulse Resp BP Pulse Ox 39.0 C H 76 18 142/71 H 99 02/05/17 08:00 02/05/17 08:56 02/05/17 08:56 02/05/17 08:56 02/05/17 08:56 Laboratory Results 02/05/17 04:55 02/05/17 04:55 ICD10 Worksheet Patient Problems: Problems Problem Status Onset Aneurysm of anterior communicating artery Acute Subarachnoid hemorrhage Acute
--- NOTE | 2017-02-05 14:15 | HOSPPROG ---
Hospitalist Progress Note Assessment/Plan: 46 yo F w probable alcoholism here w SAH 2/2 aneurysm rupture # Acute subarachnoid hemorrhage secondary to anterior communicating artery aneurysm- CT head (personally reviewed and interpreted) evolving right parietal infarct status post coiling -POD# 3 - with severe multivessel vaso spasm on cerebral angiography- patient remains intubated, sedated Oxygen saturations 100% on 40% FiO2 - continue sedation and ventilatory support - continue intrathecal Milrinone - continue kept - continue close neurologic monitoring # Acute fever- currently 39.0 presume 2/ SAH- blood cultures 02/04 NGTD Chest x-ray- no infiltrates - continue supportive care # acute iatrogenic hypernatremia- neurosurgery titrating 3% saline drip for goal sodium 145-155 - cont follow # acute leukocytosis- initial infectious workup negative - continue to monitor # hypokalemia- potassium protocol initiated # hypertension- carefully titrating blood pressures 140-160 -bp management per neurosurgery - currently on pressors # history of alcohol abuse-at risk for withdrawal - continue close monitoring and continue CIWA # proph-scd's- Lovenox contraindicated in the setting of subarachnoid hemorrhage # dispo- greater than 2 midnights the patient remains critically ill requiring high levels of critical care support I discussed the case with the RN- continuing tight blood pressure control and q.8 hours Milrinone intrathecal injections Subjective: No events Objective: Vital Signs Temp Pulse Resp BP Pulse Ox 39.0 C H 87 32 H 167/88 H 100 02/05/17 14:00 02/05/17 14:00 02/05/17 14:00 02/05/17 14:00 02/05/17 14:00 Laboratory Results 02/05/17 04:55 02/05/17 12:20 02/04/17 02/05/17 02/06/17 05:59 05:59 05:59 Intake Total 3317 2836 Output Total 3348 3402 124 Balance -28 -566 -124 - Physical Exam Constitutional: chronically ill appearing Ears, Nose, Mouth, Throat: dry mucous membranes Cardiovascular: regular rate and rhythym Respiratory: No expiratory wheeze, No inspiratory crackles Gastrointestinal: No normoactive bowel sounds Genitourinary: no bladder fullness, sanchez in urethra Skin: warm Musculoskeletal: No asymmetric calves Neurologic: No AAOx3 Psychiatric: other (Sedated) Lymph, Heme, Immunologic: no cervical LAD ICD10 Worksheet Patient Problems: Problems Problem Status Onset Aneurysm of anterior communicating artery Acute Subarachnoid hemorrhage Acute
--- NOTE | 2017-02-05 14:37 | ASMTCASEMG ---
Living Arrangements What is your living Answers: With Spouse arrangement? Who do you live with? Type Of Residence What kind of residence do Answers: House you live in? Case Management Evaluation Psychosocial Needs: Answers: Active Substance Abuse Education Needs Answers: Substance Abuse Counseling Discharge Plan Comments Coordination Status Comments Notes: Patient presented to the ER w/ headache and altered mental status. Patient has a hx of alcoholism. Patient was admitted for subarachnoid hemorrhage and ETOH. She has had a stroke secondary to severe vasospasm and acute respiratory failure. Patient is stable on mechanical ventilation. Spl has been ordered. D/C needs unknown at this time. CM will follow. Date Signed: 02/05/2017 02:36 PM Electronically Signed By:Silvana Mccarthy
[2017-02-05 18:31] LABS: POTASSIUM 3.3 mEq/L (3.5-5.2); SODIUM 151 mEq/L (134-144)
[2017-02-05] MEDS ORDERED: ONDANSETRON 4 MG/2 ML VIAL ONE (23:45)
[2017-02-06] MEDS: niMODipine 33.333 MG/ML UDL TUBE SCH ×6 (01:04→21:51)
[2017-02-06 05:40] LABS: HEMATOCRIT 43.3 % (38.0-47.0); HEMOGLOBIN 14.1 g/dL (12.6-16.3); MEAN CELL HEMOGLOBIN 34.6 pg (27.9-34.1); MEAN CELL HEMOGLOBIN CONCENTR. 32.6 g/dL (32.4-36.7); MEAN CELL VOLUME 106.4 fL (81.5-99.8); RED BLOOD CELL COUNT 4.07 10^6/uL (4.18-5.33); RED CELL DISTRIBUTION WIDTH 12.4 % (11.5-15.2)
[2017-02-06 05:56] LABS: ANION GAP 12 mEq/L (8-16); CALCIUM 8.6 mg/dL (8.5-10.4); CARBON DIOXIDE 23 mEq/l (22-31); CHLORIDE 115 mEq/L (97-110); CREATININE 0.4 mg/dL (0.6-1.0); GLOMERULAR FILTRATION RATE > 60; GLUCOSE 186 mg/dL (70-100); POTASSIUM 3.9 mEq/L (3.5-5.2); SODIUM 150 mEq/L (134-144)
[2017-02-06] MEDS ORDERED: POTASSIUM Cl (KCl) 50 ML IV ONE (06:22)
[2017-02-06] MEDS: PROPOFOL/EMULSION 50 ML IV SCH ×2 (06:29→19:32)
[2017-02-06] MEDS: ACETAMINOPHEN 650 MG/20.3 ML UDCUP PO PRN ×3 (06:45→22:21)
[2017-02-06] MEDS: FAMOTIDINE 20 MG/NACL 50 ML IV SCH ×2 (08:00→20:24)
[2017-02-06] MEDS: BACITRACIN OINTMENT 1 PACKET TP SCH ×2 (08:00→20:33)
--- NOTE | 2017-02-06 08:21 | PDINTPN ---
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 White count is up * Stroke-secondary to severe vasospasm -continue intrathecal Milrinone * Nausea and vomiting-occurs after giving intrathecal Milrinone -will discuss with Neurosurgery * Acute respiratory failure-stable on mechanical ventilation. Oxygen requirements are minimal. -not cleared up from mental status standpoint for extubation * Alcoholism-no evidence of withdrawal * Chronic back pain * Hypertension-controlled * Sedation-adequate * VTE prophylaxis-hold anticoagulation for now continue SCDs * Nutrition-on tube feeds Case discussed with Nursing and Respiratory therapy 35 minutes of critical care time spent with patient Subjective: Sedated on mechanical ventilation. Not arousable Objective: Vital Signs Temp Pulse Resp BP Pulse Ox 38.8 C H 81 18 178/91 H 100 02/06/17 08:00 02/06/17 08:00 02/06/17 08:00 02/06/17 08:00 02/06/17 08:00 Laboratory Results 02/06/17 05:20 02/06/17 05:20 02/05/17 02/06/17 02/07/17 05:59 05:59 05:59 Intake Total 2836 3841 Output Total 3402 0629 25 Balance -566 702 -25 Physical Exam - Physical Exam General Appearance: obtunded, No alert EENT: PERRL/EOMI, ET tube Neck: non-tender, full range of motion, supple, normal inspection Respiratory: chest non-tender, lungs clear, normal breath sounds Cardiac/Chest: normal peripheral pulses, regular rate, rhythm Peripheral Pulses: 2+: carotid (R), carotid (L), femoral (R), femoral (L), dorsalis-pedis (R), dorsalis-pedis (L) Abdomen: normal bowel sounds, non-tender, soft Pelvic Exam: deferred Rectal: deferred Skin: normal color, warm/dry Extremities: normal inspection Neuro/Psych: No alert ICD10 Worksheet Patient Problems: Problems Problem Status Onset Aneurysm of anterior communicating artery Acute Subarachnoid hemorrhage Acute
[2017-02-06] MEDS: NS IT SCH ×3 (09:24→21:43)
[2017-02-06] MEDS: MILRINONE LACTATE IT SCH ×3 (09:24→21:43)
[2017-02-06] MEDS: levETIRAcetam 750 MG in NS 100 ML IV SCH ×2 (09:25→20:36)
[2017-02-06] MEDS ORDERED: ONDANSETRON 4 MG/2 ML VIAL ONE (09:26)
[2017-02-06] MEDS: SENNOSIDES 17.6 MG/10 ML UDL TUBE SCH ×2 (10:47→20:34)
[2017-02-06] MEDS: ONDANSETRON 4 MG/2 ML VIAL IVP PRN (10:48)
[2017-02-06 11:33] LABS: COLOR YELLOW; LEUKOCYTE ESTERASE,URINE 2+ (NEGATIVE); NITRITE,URINE POSITIVE (NEGATIVE)
[2017-02-06 11:37] LABS: BACTERIA 1+ /hpf (NONE SEEN); MUCUS 2+ /lpf (NONE-1+); RBC,URINE 15-25 /hpf (0-3); WBC,URINE 50-182 /hpf (0-3)
[2017-02-06] MEDS ORDERED: LIDOCAINE 2% JELLY 5 ML TUBE TP ONE (12:21)
[2017-02-06] MEDS ORDERED: BENZOCAINE UNIT DOSE SPRAY HURRICAINE MM ONE (12:21)
[2017-02-06] MEDS ORDERED: LIDOCAINE 1% 300 MG/30 ML SDV MISC ONE (12:21)
--- NOTE | 2017-02-06 12:37 | SOAPPROG ---
SHELLI Progress Note Assessment/Plan: Assessment: We will continue to hold the course on Brenda. She needs our support through this period of vasospasm. Will repeat some imaging on Wednesday or Wednesday. Plan: 02/06/17 12:36 Subjective: No events. vomiting after milrinone injection Objective: Vital Signs Temp Pulse Resp BP Pulse Ox 37.1 C 95 21 H 127/62 H 100 02/06/17 11:54 02/06/17 11:54 02/06/17 11:54 02/06/17 11:54 02/06/17 11:54 Laboratory Results 02/06/17 05:20 02/06/17 05:20 02/05/17 02/06/17 02/07/17 05:59 05:59 05:59 Intake Total 2836 3841 Output Total 3402 3139 71 Balance -566 702 -71 E: open with stim, Right eye gazes to the right. pupils reactive M: withdraws symmetric R and L V: ETT. Grimaces with stim. EVD functions: ICPs ok. Milrinone .875 injected with ease. ICD10 Worksheet Patient Problems: Problems Problem Status Onset Aneurysm of anterior communicating artery Acute Subarachnoid hemorrhage Acute
[2017-02-06 14:30] LABS: POTASSIUM 4.1 mEq/L (3.5-5.2)
--- NOTE | 2017-02-06 16:32 | NEUSURGPN ---
Assessment/Plan: Assessment: 46 yo F s/p coiling of acomm aneursym -Pt with elevated ICP > 20 for more than 5 min this afternoon -I discussed with Dr Morel and HCT was ordered -Report pending on HCT but Dr Morle reviewed and appreciates large JAYANT infarcts -ICP is now 18-19, EVD is functioning. -Plan: aggressively cool patient given fever. Increase sedation. Discussed plan with RN. -Updated Dr Morel -Call NS with any changes Catheter Insertion Date: 02/02/17 - Physician Discussed Patient with : Maria Teresa Neurosurgery Physical Exam - Vitals, I&O, Labs I and O 02/05/17 02/06/17 02/07/17 05:59 05:59 05:59 Intake Total 2836 3841 Output Total 3402 5819 83 Balance -566 702 -83 Weight 66.5 kg Intake: IV Intake (ml) 157 257 IV Infused (ml) 3897 8569 Famotidine 20 mg/NaCl 50 50 50 ml @ 200 mls/hr IV Q12HRS [facility] Rx#:[id number] Norepinephrine Bitartrate 305 303 16 mg In D5w 250 ml @ Per Protocol IV CONT [facility] Rx#:[id number] Ns 1,000 ml @ 75 mls/hr 1459 1900 IV CONT [place] Rx#: [id number] POTASSIUM Cl (KCl) 50 ml 150 @ 50 mls/hr IV Q1H [facility] Rx #:[id number] Propofol/Emulsion 100 ml 111 103 @ Per Protocol IV CONT [facility] Rx#:[id number] SODIUM Cl 3% 500 ml @ 20 603 29 mls/hr IV CONT [facility] Rx#: [id number] fentaNYL/NACL 100 ml @ 51 64 Per Protocol IV CONT [facility] Rx#:[id number] levETIRAcetam 750 mg In 100 100 Ns 100 ml @ 420 mls/hr IV BID [facility] Rx#:[id number] Tube Feeding (ml) 510 Tube Flush (ml) 375 Output: Urine (ml) 3125 2770 Catheter 3125 2770 Emesis (ml) 30 OG Tube Output (ml) 0 Large Bore (>12 Lao) 0 Non-weighted Stomach 16 Lao CSF Drainage Amount 277 339 83 Right Ventriculostomy 277 339 83 Other: Number of Stools Catheter 1 Number of Emesis 2 Occurrences Vital Signs Temp Pulse Resp BP Pulse Ox 38.6 C H 82 20 157/79 H 100 02/06/17 14:00 02/06/17 14:00 02/06/17 14:00 02/06/17 14:00 02/06/17 14:00 Laboratory Results 02/06/17 05:20 02/06/17 13:30 ICD10 Worksheet Patient Problems: Problems Problem Status Onset Aneurysm of anterior communicating artery Acute Subarachnoid hemorrhage Acute
--- NOTE | 2017-02-06 17:20 | HOSPPROG ---
Hospitalist Progress Note Assessment/Plan: Assessment: 46 yo F p/w SAH 2/2 JAYANT aneurysm rupture c/b ongoing fever Plan: # Acute subarachnoid hemorrhage secondary to anterior communicating artery aneurysm, s/p coiling and subsequent vasospasm and resultant CVA - repeat HCT today given ICP 20 > 5 mins, demonstrates evolving JAYANT infarct w/ SAH, but no new area of blood - POD#4 - cont intrathecal milrinone/keppra/ICP monitoring - NSGY remains primary # SIRS - Leukocytosis continues to worsening, fever ongoing, unclear if this is centrally mediated vs. undiagnosed infxn - cont cooling blanket per NSGY - d/w Dr. Lala, getting CSF studies to r/o infxn - d/w Dr. Medrano/Michelle, UA pyuric but not necessarily infected, changing out sanchez and plan on repeating UA tomorrow if WBC rising/fever persistent, and, if UA positive, please consult ID for further guidance - holding on Abx - CXR clear (personally interpreted) # Acute iatrogenic hypernatremia - neurosurgery titrating 3% saline drip for goal sodium 145-155 - cont follow # Hypokalemia - potassium protocol initiated, resolved # Hypertension - carefully titrating blood pressures 140-160 - bp management per neurosurgery - currently on pressors # History of alcohol abuse - at risk for withdrawal - continue close monitoring PPx - scd's, Lovenox contraindicated in the setting of subarachnoid hemorrhage 40 minutes of critical care spent w/ patient, on rounds, coordinating with the above providers, addressing the above issues rendering the patient critically ill with high risk of worsening morbidity/mortality. Subjective: patient intubated, sedated Objective: Vital Signs Temp Pulse Resp BP Pulse Ox 38.6 C H 82 20 157/79 H 100 02/06/17 14:00 02/06/17 14:00 02/06/17 14:00 02/06/17 14:00 02/06/17 16:10 Laboratory Results 02/06/17 05:20 02/06/17 13:30 02/05/17 02/06/17 02/07/17 05:59 05:59 05:59 Intake Total 2836 3841 Output Total 3402 3719 83 Balance -566 702 -83 - Physical Exam Constitutional: no apparent distress, not in pain, No uncomfortable Cardiovascular: regular rate and rhythym, no murmur, rub, or gallop, No edema Respiratory: no respiratory distress, no rales or rhonchi, clear to auscultation Gastrointestinal: No normoactive bowel sounds (hypoactive), No tenderness, No distension Neurologic: other (unresponsive to tactile stimuli) ICD10 Worksheet Patient Problems: Problems Problem Status Onset Aneurysm of anterior communicating artery Acute Subarachnoid hemorrhage Acute
[2017-02-06] MEDS: fentaNYL/NACL 100 ML IV SCH ×2 (18:24→23:09)
[2017-02-06 18:45] LABS: CSF APPEARANCE HAZY (CLEAR); CSF COLOR PINK (COLORLESS); CSF SUPERNATANT XANTHOCHROMIC (COLORLESS); WBC, CSF 30 /mm3 (0-5)
[2017-02-06 18:48] LABS: PROTEIN, CSF 85 mg/dL (12-60)
[2017-02-06] MEDS: NOREPINEPHRINE BITARTRATE 16 MG in D5W 250 ML IV SCH (19:33)
--- NOTE | 2017-02-06 20:53 | GPN ---
[f rep st] PROCEDURE NOTE PROCEDURE PERFORMED: Fiberoptic bronchoscopy. INDICATION: Atelectasis. ANESTHESIA: She is currently sedated and on mechanical ventilation. She received 1% lidocaine topi juan. The procedure was performed in the intensive care unit with continuous pulse oximetry, EKG a nd blood pressure monitoring. Please note that N95 masks were used throughout the procedure. The p atient is on mechanical ventilation which is by definition a closed system and poses no risk for air borne pathogens. DESCRIPTION OF PROCEDURE: Using a disposable video bronchoscope, the bronchoscope was entered throu gh a #7.0 endotracheal tube. Distal trachea and betty were visualized and showed no endobronchial lesion and normal-appearing mucosa. The bronchoscope was entered into the right lung. Right upper lobe, right middle lobe, and right lower lobe including subsegments were visualized and showed no en dobronchial lesion and normal-appearing mucosa. The bronchoscope was entered into the left lung. L eft upper lobe, lingula, and left lower lobe including subsegments visualized showed no endobronchia l lesions and normal-appearing mucosa. Bronchoalveolar lavage was taken from the left lower lobe. This was sent for C and S. The patient tolerated the procedure well. There were no apparent compli cations. Please note that a time-out was performed prior to the procedure. /[id number]/MODL
[2017-02-06] MEDS: PROPOFOL/EMULSION 100 ML IV SCH (23:06)
[2017-02-07] MEDS: niMODipine 33.333 MG/ML UDL TUBE SCH ×8 (01:56→22:27)
[2017-02-07] MEDS: PROPOFOL/EMULSION 100 ML IV SCH ×3 (04:51→16:58)
[2017-02-07 06:07] LABS: % IMMATURE GRANULYOCYTES 0.8 % (0.0-1.1); ABSOLUTE IMMATURE GRANULOCYTES 0.13 10^3/uL (0.00-0.10); ADD DIFF? NO; ADD MORPH? NO; ADD SCAN? NO; ATYPICAL LYMPHOCYTE FLAG 80 (0-99); FRAGMENT RBC FLAG 0 (0-99); HEMATOCRIT 43.4 % (38.0-47.0); HEMOGLOBIN 14.2 g/dL (12.6-16.3); LEFT SHIFT FLG 10 (0-99); LIPEMIA HEMOLYSIS FLAG 80 (0-99); MEAN CELL HEMOGLOBIN CONCENTR. 32.7 g/dL (32.4-36.7); MEAN CELL VOLUME 103.8 fL (81.5-99.8); PLATELET CLUMPS FLAG 0 (0-99); PLATELET COUNT 218 10^3/uL (150-400); RED BLOOD CELL COUNT 4.18 10^6/uL (4.18-5.33); RED CELL DISTRIBUTION WIDTH 12.1 % (11.5-15.2)
[2017-02-07] MEDS: NS 1,000 ML IV SCH (06:16)
[2017-02-07 06:32] LABS: ALANINE AMINOTRANSFERASE 31 IU/L (9-52); ALBUMIN 3.1 g/dL (3.5-5.0); ALKALINE PHOSPHATASE 81 IU/L (38-126); ANION GAP 9 mEq/L (8-16); ASPARTATE AMINOTRANSFERASE 31 IU/L (14-46); BILIRUBIN,TOTAL 0.6 mg/dL (0.1-1.4); CALCIUM 8.5 mg/dL (8.5-10.4); CARBON DIOXIDE 29 mEq/l (22-31); CHLORIDE 108 mEq/L (97-110); CREATININE 0.4 mg/dL (0.6-1.0); GLOMERULAR FILTRATION RATE > 60; GLUCOSE 135 mg/dL (70-100); MAGNESIUM 2.1 mg/dL (1.6-2.3); POTASSIUM 3.4 mEq/L (3.5-5.2); SODIUM 146 mEq/L (134-144)
[2017-02-07] MEDS: fentaNYL/NACL 100 ML IV SCH ×3 (06:33→22:00)
[2017-02-07] MEDS ORDERED: POTASSIUM Cl (KCl) 50 ML IV SCH (06:50)
[2017-02-07] MEDS: NOREPINEPHRINE BITARTRATE 16 MG in D5W 250 ML IV SCH ×2 (07:30→18:19)
[2017-02-07] MEDS ORDERED: POTASSIUM Cl (KCl) 50 ML IV ONE ×3 (07:45→18:20)
[2017-02-07] MEDS: MILRINONE LACTATE IT SCH ×3 (08:23→22:35)
[2017-02-07] MEDS: ONDANSETRON 4 MG/2 ML VIAL IVP PRN ×3 (08:23→23:00)
[2017-02-07] MEDS: NS IT SCH ×3 (08:23→22:35)
--- NOTE | 2017-02-07 09:09 | PDINTPN ---
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 White count is up * Stroke-secondary to severe vasospasm. These have worsened -continue intrathecal Milrinone * Nausea and vomiting-occurs after giving intrathecal Milrinone -will discuss with Neurosurgery * Acute respiratory failure-stable on mechanical ventilation. Oxygen requirements are minimal. Increased secretions -will perform fiberoptic bronchoscopy today * Alcoholism-no evidence of withdrawal * Chronic back pain * Hypertension-controlled * Sedation-adequate * VTE prophylaxis-hold anticoagulation for now continue SCDs * Nutrition-on tube feeds Case discussed with Nursing, neurosurgeon and Respiratory therapy 40 minutes of critical care time spent with patient Subjective: Sedated on mechanical ventilation Objective: Vital Signs Temp Pulse Resp BP Pulse Ox 37.4 C 80 17 159/88 H 100 02/07/17 09:00 02/07/17 09:00 02/07/17 09:00 02/07/17 09:00 02/07/17 09:00 Microbiology 02/06/17 13:30 Gram Stain - Final Lung Left Lower Lobe - Bronchial Washings 02/06/17 18:00 Gram Stain - Final Csf From Shunt Laboratory Results 02/07/17 05:52 02/07/17 05:52 02/06/17 02/07/17 02/08/17 05:59 05:59 05:59 Intake Total 3841 3786 452.5 Output Total 3139 2542 266 Balance 702 1244 186.5 Physical Exam - Physical Exam General Appearance: obtunded, No alert EENT: PERRL/EOMI, ET tube Neck: non-tender, full range of motion, supple, normal inspection Respiratory: chest non-tender, crackles (Few), No wheezing Cardiac/Chest: normal peripheral pulses, regular rate, rhythm Abdomen: normal bowel sounds, non-tender, soft Pelvic Exam: deferred Rectal: deferred Skin: normal color, warm/dry Extremities: non-tender, normal inspection, normal capillary refill Neuro/Psych: No alert ICD10 Worksheet Patient Problems: Problems Problem Status Onset Aneurysm of anterior communicating artery Acute Subarachnoid hemorrhage Acute
[2017-02-07] MEDS: FAMOTIDINE 20 MG/NACL 50 ML IV SCH ×2 (09:36→21:03)
[2017-02-07] MEDS: levETIRAcetam 750 MG in NS 100 ML IV SCH ×2 (10:06→21:03)
[2017-02-07] MEDS: BACITRACIN OINTMENT 1 PACKET TP SCH ×2 (10:44→21:05)
[2017-02-07] MEDS: SENNOSIDES 17.6 MG/10 ML UDL TUBE SCH ×2 (10:44→21:21)
[2017-02-07] MEDS ORDERED: LIDOCAINE 1% 300 MG/30 ML SDV MISC ONE (10:50)
--- NOTE | 2017-02-07 11:05 | SOAPPROG ---
SOAP Progress Note Assessment/Plan: Assessment: She has developed more obvious bilateral JAYANT and even some right MCA distribution strokes as one would expect given the severity of her admission vasospasm. We will continue to use sedation to manage her ICPs and continue with the intraventricular milrinone. Will anticipate a family conference on Wednesday. Plan: 02/06/17 12:36 02/07/17 11:03 Subjective: ICps started to climb yesterday but responded well to sedation. Objective: Vital Signs Temp Pulse Resp BP Pulse Ox 36.9 C 70 17 140/83 H 100 02/07/17 10:32 02/07/17 10:45 02/07/17 10:45 02/07/17 10:45 02/07/17 10:45 Microbiology 02/06/17 13:30 Gram Stain - Final Lung Left Lower Lobe - Bronchial Washings 02/06/17 18:00 Gram Stain - Final Csf From Shunt Laboratory Results 02/07/17 05:52 02/07/17 05:52 02/06/17 02/07/17 02/08/17 05:59 05:59 05:59 Intake Total 3841 3786 680.5 Output Total 3139 2542 391 Balance 702 1244 289.5 GCS 3 currently but when sedation is held she does flexion withdraw arms bilaterally. ICP 19-20 ICD10 Worksheet Patient Problems: Problems Problem Status Onset Aneurysm of anterior communicating artery Acute Subarachnoid hemorrhage Acute
--- NOTE | 2017-02-07 14:54 | GPN ---
[f rep st] PROCEDURE NOTE PROCEDURE: Fiberoptic bronchoscopy. INDICATION: Mucous plugging. ANESTHESIA: She is currently sedated on mechanical ventilation. The procedure was performed in the intensive care unit. Continuous pulse ox, EKG, and blood pressur e monitoring. Please note, N95 masks were used throughout the procedure. Also note, the patient is on mechanical ventilation, which is, by definition, a closed system and posed no risk for airborne pathogens. DESCRIPTION OF PROCEDURE: After time-out was performed, a bronchoscope was entered through a #7 end otracheal tube. Distal trachea and betty were visualized and showed a moderate amount of secretion s that were therapeutically aspirated. Bronchoscope was entered in the right lung: Right upper lob e, right middle lobe, right lower lobe, including sub segments, were subsequently visualized and ronald wed no endobronchial lesion, normal-appearing mucosa, and a moderate amount of secretions that were therapeutically aspirated. Bronchoscope was entered in the left lung. Left upper lobe and lingula were visualized, showed no endobronchial lesion and normal-appearing mucosa. Bronchoscope was enter ed in the left lower lobe. There were copious amounts of thick, tenacious tannish secretions and mu cous plugging. These were therapeutically aspirated. Bronchoalveolar lavage was taken from the lef t lower lobe and sent for C and S. The patient tolerated procedure well. There were no apparent co mplications. /[id number]/MODL
[2017-02-07] MEDS ORDERED: AZITHROMYCIN IV 500 MG in D5W 250 ML IV SCH (15:30)
--- NOTE | 2017-02-07 15:42 | HOSPPROG ---
Hospitalist Progress Note Assessment/Plan: * Acute subarachnoid hemorrhage due to JAYANT aneurysm s/p coiling --> vasospasm/ CVA -intrathecal milrinone TID -arranging hospitalist to push 10:00pm dose intra-thecal milrinone -keppra, nimodipine, IV norepi gtt -3% saline per neurosurgery * Fever - bronch cx now growing H flu -d/w Dr. Martinez - he will start antibiotics * Acute respiratory failure - vent * Mucus plugging - bronch per pulmonary Subjective: Still with fever, intubated Objective: Vital Signs Temp Pulse Resp BP Pulse Ox 37.7 C 89 19 141/80 H 100 02/07/17 15:00 02/07/17 15:30 02/07/17 15:30 02/07/17 15:30 02/07/17 15:30 Microbiology 02/06/17 13:30 Gram Stain - Final Lung Left Lower Lobe - Bronchial Washings 02/06/17 18:00 Gram Stain - Final Csf From Shunt Laboratory Results 02/07/17 05:52 02/07/17 05:52 02/06/17 02/07/17 02/08/17 05:59 05:59 05:59 Intake Total 3841 3786 1317.2 Output Total 3139 2542 1281 Balance 702 1244 36.2 d/w Dr. Martinez - intra- thecal milrinone, trouble getting hospitalist to administer on previous nights Tele - NSR IV fentanyl, IV propofol gtt on vent - Physical Exam Constitutional: no apparent distress, appears nourished, not in pain Cardiovascular: regular rate and rhythym, no murmur, rub, or gallop Respiratory: no respiratory distress, no rales or rhonchi, clear to auscultation Gastrointestinal: normoactive bowel sounds, soft, non-tender abdomen, no palpable masses Skin: no rashes or abrasions, no fluctuance, no induration Neurologic: No AAOx3 Psychiatric: encephalopathic, poor insight, poor judgement, poor memory, No interacting appropriately, No agitated ICD10 Worksheet Patient Problems: Problems Problem Status Onset Aneurysm of anterior communicating artery Acute Subarachnoid hemorrhage Acute
[2017-02-07 17:56] LABS: POTASSIUM 3.7 mEq/L (3.5-5.2); SODIUM 137 mEq/L (134-144)
[2017-02-07] MEDS: SODIUM Cl 3% 500 ML IV SCH (18:39)
[2017-02-08] MEDS: PROPOFOL/EMULSION 100 ML IV SCH ×3 (00:01→20:00)
[2017-02-08] MEDS: niMODipine 33.333 MG/ML UDL TUBE SCH ×12 (00:20→22:00)
[2017-02-08] MEDS: NOREPINEPHRINE BITARTRATE 16 MG in D5W 250 ML IV SCH (05:30)
[2017-02-08] MEDS: ACETAMINOPHEN 650 MG/20.3 ML UDCUP PO PRN ×2 (05:58→14:05)
[2017-02-08] MEDS: NS IT SCH ×3 (06:15→23:24)
[2017-02-08] MEDS: MILRINONE LACTATE IT SCH ×3 (06:15→23:24)
[2017-02-08 06:17] LABS: % IMMATURE GRANULYOCYTES 0.5 % (0.0-1.1); ABSOLUTE IMMATURE GRANULOCYTES 0.09 10^3/uL (0.00-0.10); ADD DIFF? NO; ADD MORPH? NO; ADD SCAN? NO; ATYPICAL LYMPHOCYTE FLAG 90 (0-99); FRAGMENT RBC FLAG 0 (0-99); HEMATOCRIT 40.3 % (38.0-47.0); HEMOGLOBIN 13.2 g/dL (12.6-16.3); LEFT SHIFT FLG 40 (0-99); LIPEMIA HEMOLYSIS FLAG 80 (0-99); MEAN CELL HEMOGLOBIN 34.2 pg (27.9-34.1); MEAN CELL HEMOGLOBIN CONCENTR. 32.8 g/dL (32.4-36.7); MEAN CELL VOLUME 104.4 fL (81.5-99.8); MEAN PLATELET VOLUME 11.9 fL (8.7-11.7); PLATELET CLUMPS FLAG 10 (0-99); PLATELET COUNT 241 10^3/uL (150-400); RED BLOOD CELL COUNT 3.86 10^6/uL (4.18-5.33); RED CELL DISTRIBUTION WIDTH 11.9 % (11.5-15.2)
[2017-02-08 06:38] LABS: ANION GAP 9 mEq/L (8-16); CALCIUM 8.4 mg/dL (8.5-10.4); CARBON DIOXIDE 30 mEq/l (22-31); CHLORIDE 107 mEq/L (97-110); CREATININE 0.4 mg/dL (0.6-1.0); GLOMERULAR FILTRATION RATE > 60; GLUCOSE 172 mg/dL (70-100); MAGNESIUM 2.3 mg/dL (1.6-2.3); POTASSIUM 3.9 mEq/L (3.5-5.2); SODIUM 146 mEq/L (134-144)
[2017-02-08] MEDS: SODIUM Cl 3% 500 ML IV SCH ×2 (07:07→19:02)
[2017-02-08] MEDS: NS 1,000 ML IV SCH (07:15)
[2017-02-08] MEDS ORDERED: POTASSIUM Cl (KCl) 50 ML IV ONE (07:17)
[2017-02-08] MEDS: SENNOSIDES 17.6 MG/10 ML UDL TUBE SCH ×2 (08:02→21:06)
[2017-02-08] MEDS: levETIRAcetam 750 MG in NS 100 ML IV SCH ×2 (08:03→21:04)
--- NOTE | 2017-02-08 08:39 | PDINTPN ---
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 These have worsened -continue intrathecal Milrinone * Acute respiratory failure-stable on mechanical ventilation. Oxygen requirements are minimal. Increased secretions * Alcoholism-no evidence of withdrawal * Chronic back pain * Hypertension-controlled * Sedation-adequate * VTE prophylaxis-hold anticoagulation for now continue SCDs * Nutrition-on tube feeds Case discussed with Nursing, neurosurgeon and Respiratory therapy 35 minutes of critical care time spent with patient Subjective: Sedated on mechanical ventilation. No purposeful movements per nursing. Will open eyes Objective: Vital Signs Temp Pulse Resp BP Pulse Ox 36.6 C 98 17 149/76 H 99 02/08/17 08:00 02/08/17 08:15 02/08/17 08:15 02/08/17 08:15 02/08/17 08:15 Microbiology 02/07/17 12:15 Gram Stain - Final Lung Left Lobe - Bronchial Washings 02/06/17 13:30 Gram Stain - Final Lung Left Lower Lobe - Bronchial Washings 02/06/17 18:00 Gram Stain - Final Csf From Shunt Laboratory Results 02/08/17 06:05 02/08/17 06:05 02/07/17 02/08/17 02/09/17 05:59 05:59 05:59 Intake Total 3786 4248.37 Output Total 2542 3205 176 Balance 1244 1043.37 -176 Physical Exam - Physical Exam General Appearance: obtunded, No alert EENT: PERRL/EOMI, ET tube Neck: non-tender, full range of motion, supple, normal inspection Respiratory: crackles (Bibasilar left greater than right), No respiratory distress, No wheezing Cardiac/Chest: normal peripheral pulses, regular rate, rhythm Abdomen: normal bowel sounds, non-tender, soft Pelvic Exam: deferred Rectal: deferred Skin: normal color, warm/dry Extremities: normal inspection, normal capillary refill Neuro/Psych: No alert ICD10 Worksheet Patient Problems: Problems Problem Status Onset Aneurysm of anterior communicating artery Acute Subarachnoid hemorrhage Acute
[2017-02-08] MEDS: ALBUMIN 5% 500 ML IV PRN ×3 (08:57→23:51)
[2017-02-08] MEDS: fentaNYL/NACL 100 ML IV SCH (09:03)
[2017-02-08] MEDS: FAMOTIDINE 20 MG/NACL 50 ML IV SCH ×2 (09:03→21:06)
[2017-02-08] MEDS: AZITHROMYCIN IV 500 MG in NS 250 ML IV SCH (09:33)
--- NOTE | 2017-02-08 09:47 | SOAPPROG ---
SOAP Progress Note Assessment/Plan: Assessment: She has developed more obvious bilateral JAYANT and even some right MCA distribution strokes as one would expect given the severity of her admission vasospasm. We will continue to use sedation to manage her ICPs and continue with the intraventricular milrinone. Will anticipate a family conference on Wednesday. We have added 3% and bumped her total hourly IV to 150. I also bolused with a little albumin to keep CVP more optimal in hopes of supporting her blood pressure. Plan: 02/06/17 12:36 02/07/17 11:03 02/08/17 09:46 Subjective: No events. ICPs managed overnight. Objective: Vital Signs Temp Pulse Resp BP Pulse Ox 36.3 C 104 H 17 158/87 H 98 02/08/17 09:00 02/08/17 09:15 02/08/17 09:15 02/08/17 09:00 02/08/17 09:15 Microbiology 02/07/17 12:15 Gram Stain - Final Lung Left Lobe - Bronchial Washings 02/06/17 13:30 Gram Stain - Final Lung Left Lower Lobe - Bronchial Washings 02/06/17 18:00 Gram Stain - Final Csf From Shunt Laboratory Results 02/08/17 06:05 02/08/17 06:05 02/07/17 02/08/17 02/09/17 05:59 05:59 05:59 Intake Total 3786 4248.37 Output Total 2542 3205 701 Balance 1244 1043.37 -701 CVPs 4 E: closed but grimaces with light in the eye Pupils 1.5mm and trace reactive V: ETT ICD10 Worksheet Patient Problems: Problems Problem Status Onset Aneurysm of anterior communicating artery Acute Subarachnoid hemorrhage Acute
[2017-02-08] MEDS: BACITRACIN OINTMENT 1 PACKET TP SCH ×2 (10:12→21:04)
[2017-02-08] MEDS: PETROLAT,WHT/MIN OIL/SOD CHL 3.5 GM OPHT.OINT EACHEYE PRN (10:14)
[2017-02-08] MEDS: NOREPINEPHRINE BITARTRATE 16 MG in NS 250 ML IV SCH ×2 (13:21→23:15)
[2017-02-08] MEDS: ONDANSETRON 4 MG/2 ML VIAL IVP PRN ×2 (13:41→23:50)
--- NOTE | 2017-02-08 16:57 | HOSPPROG ---
Hospitalist Progress Note Assessment/Plan: * Acute subarachnoid hemorrhage due to JAYANT aneurysm s/p coiling --> vasospasm/ CVA -intrathecal milrinone TID -hospitalist to push 10:00pm dose intra-thecal milrinone -keppra, nimodipine, IV norepi gtt -3% saline per neurosurgery * Fever - bronch cx now growing H flu -azithro per Dr. Martinez * Acute respiratory failure - vent * Mucus plugging - bronch per pulmonary Subjective: No events Objective: Vital Signs Temp Pulse Resp BP Pulse Ox 37.3 C 113 H 19 145/71 H 99 02/08/17 16:30 02/08/17 16:30 02/08/17 16:30 02/08/17 16:30 02/08/17 16:30 Microbiology 02/07/17 12:15 Gram Stain - Final Lung Left Lobe - Bronchial Washings 02/06/17 18:00 Gram Stain - Final Csf From Shunt 02/06/17 13:30 Gram Stain - Final Lung Left Lower Lobe - Bronchial Washings Bronchial Washings Culture - Final Haemophilus Influenzae Laboratory Results 02/08/17 06:05 02/08/17 12:10 02/07/17 02/08/17 02/09/17 05:59 05:59 05:59 Intake Total 3786 4248.37 Output Total 2542 3205 2070 Balance 1244 1043.37 -2070 CXR - minimal infiltrate TEle - sinus tachycardia case dw Dr. Martinez ICU rounds regarding prognosis - suspect poor - Physical Exam Constitutional: no apparent distress, appears nourished, not in pain Cardiovascular: regular rate and rhythym, no murmur, rub, or gallop Respiratory: no respiratory distress, no rales or rhonchi, clear to auscultation Gastrointestinal: normoactive bowel sounds, soft, non-tender abdomen, no palpable masses Skin: no rashes or abrasions, no fluctuance, no induration Neurologic: No AAOx3 Psychiatric: encephalopathic, poor insight, poor judgement, poor memory, No interacting appropriately, No suicidal ideation ICD10 Worksheet Patient Problems: Problems Problem Status Onset Aneurysm of anterior communicating artery Acute Subarachnoid hemorrhage Acute
[2017-02-08 18:20] LABS: POTASSIUM 4.1 mEq/L (3.5-5.2); SODIUM 148 mEq/L (134-144)
[2017-02-09] MEDS: niMODipine 33.333 MG/ML UDL TUBE SCH ×13 (00:13→23:40)
[2017-02-09 06:18] LABS: ABSOLUTE IMMATURE GRANULOCYTES 0.15 10^3/uL (0.00-0.10); ADD DIFF? NO; ADD MORPH? NO; ADD SCAN? YES; FRAGMENT RBC FLAG 0 (0-99); LIPEMIA HEMOLYSIS FLAG 80 (0-99); MEAN PLATELET VOLUME 11.8 fL (8.7-11.7)
[2017-02-09 06:24] LABS: HEMATOCRIT 36.4 % (38.0-47.0); HEMOGLOBIN 11.5 g/dL (12.6-16.3); LEFT SHIFT FLG 30 (0-99); MEAN CELL HEMOGLOBIN 33.7 pg (27.9-34.1); MEAN CELL HEMOGLOBIN CONCENTR. 31.6 g/dL (32.4-36.7); MEAN CELL VOLUME 106.7 fL (81.5-99.8); PLATELET CLUMPS FLAG 0 (0-99); PLATELET COUNT 231 10^3/uL (150-400); RED BLOOD CELL COUNT 3.41 10^6/uL (4.18-5.33); RED CELL DISTRIBUTION WIDTH 12.2 % (11.5-15.2)
[2017-02-09 06:31] LABS: MAGNESIUM 2.8 mg/dL (1.6-2.3); POTASSIUM 3.9 mEq/L (3.5-5.2); SODIUM 146 mEq/L (134-144)
[2017-02-09 06:35] LABS: ATYPICAL LYMPHOCYTE FLAG 110 (0-99)
[2017-02-09] MEDS: MILRINONE LACTATE IT SCH ×2 (07:10→16:29)
[2017-02-09] MEDS: NS IT SCH ×2 (07:10→16:29)
[2017-02-09 07:18] LABS: SCAN NEGATIVE
[2017-02-09] MEDS: SODIUM Cl 3% 500 ML IV SCH ×2 (08:22→23:39)
[2017-02-09] MEDS: PROPOFOL/EMULSION 100 ML IV SCH (08:23)
[2017-02-09] MEDS: AZITHROMYCIN IV 500 MG in NS 250 ML IV SCH (08:30)
[2017-02-09] MEDS: SENNOSIDES 17.6 MG/10 ML UDL TUBE SCH ×2 (08:30→20:11)
[2017-02-09] MEDS: levETIRAcetam 750 MG in NS 100 ML IV SCH (08:30)
[2017-02-09] MEDS: BACITRACIN OINTMENT 1 PACKET TP SCH ×2 (08:30→20:08)
[2017-02-09] MEDS: FAMOTIDINE 20 MG/NACL 50 ML IV SCH (08:30)
--- NOTE | 2017-02-09 08:39 | NEUSURGPN ---
Assessment/Plan: Assessment: 46 yo F s/p coiling of acomm aneursym -Continue tid Milrinone intraventricular injections -Report pending on HCT but Dr Morel reviewed and appreciates large JAYANT infarcts -ICP is now 3-14, EVD is functioning. -Will obtain HCT this morning. BAsed on results may obtain angiogram later this week, -Patient was seen by Dr Morel -Call NS with any changes Subjective: Unable to obtain Objective: Opens eyes to voice, PERRLA. will relfexively move right arm to painful srimuli. No movement in LUE or BLE. Ventric site c/d/i Catheter Insertion Date: 02/06/17 - Physician Patient Seen by : Maria Teresa Neurosurgery Physical Exam - Vitals, I&O, Labs I and O 02/08/17 02/09/17 02/10/17 05:59 05:59 05:59 Intake Total 4248.37 5330.9 148.2 Output Total 3205 5272 300 Balance 1043.37 58.9 -151.8 Weight 71.8 kg Intake: Oral (ml) 20 IV Intake (ml) 522 270 IV Infused (ml) 2725.37 4039.9 148.2 Albumin 5% 500 ml @ As 973 Directed IV PRN PRN Rx#: [id number] Norepinephrine Bitartrate 545.1 585.6 23.2 16 mg In D5w 250 ml @ Per Protocol IV CONT [facility] Rx#:[id number] Ns 1,000 ml @ 75 mls/hr 1086.07 930.2 41.9 IV CONT [facility] Rx#: [id number] Propofol/Emulsion 100 ml 379.5 320.2 14.5 @ As Directed IV AD [facility] Rx#:[id number] SODIUM Cl 3% 500 ml @ 40 454.8 994.0 54.8 mls/hr IV CONT [facility] Rx#: [id number] fentaNYL/NACL 100 ml @ 259.9 236.9 13.8 Per Protocol IV CONT [facility] Rx#:[id number] Tube Feeding (ml) 756 771 Tube Flush (ml) 225 250 Output: Urine (ml) 2705 5015 300 Catheter 2705 5015 300 OG Tube Output (ml) 200 Large Bore (>12 Amharic) 200 Non-weighted Stomach 16 Amharic CSF Drainage Amount 300 257 0 Right Ventriculostomy 300 257 0 Microbiology 02/07/17 12:15 Gram Stain - Final Lung Left Lobe - Bronchial Washings 02/06/17 18:00 Gram Stain - Final Csf From Shunt 02/06/17 13:30 Gram Stain - Final Lung Left Lower Lobe - Bronchial Washings Bronchial Washings Culture - Final Haemophilus Influenzae Vital Signs Temp Pulse Resp BP Pulse Ox 36.7 C 98 22 H 154/99 H 100 02/09/17 08:00 02/09/17 08:00 02/09/17 08:00 02/09/17 08:00 02/09/17 08:00 Laboratory Results 02/09/17 06:05 02/09/17 06:10 ICD10 Worksheet Patient Problems: Problems Problem Status Onset Aneurysm of anterior communicating artery Acute Subarachnoid hemorrhage Acute
[2017-02-09] MEDS ORDERED: POTASSIUM Cl (KCl) 50 ML IV ONE (08:46)
[2017-02-09 08:59] LABS: BASE EXCESS 2.2 mEq/L (-2.5-2.5); BICARBONATE 27 mEq/L (22-26); MEASURED OXYGEN SATURATION 97 % (92-95); PCO2 44 mmHg (34-38); PO2 87 mmHg (65-75); TCO2 28 mEq/L (23-27)
[2017-02-09 09:00] LABS: END TIDAL CO2 40
[2017-02-09 09:01] LABS: O2 CONCENTRATIION 40 % (0-100); P/F RATIO 218 RATIO; PATIENT RATE 29; PRESSURE SUPPORT 10
[2017-02-09] MEDS: NS 1,000 ML IV SCH (10:08)
[2017-02-09] MEDS: NOREPINEPHRINE BITARTRATE 16 MG in NS 250 ML IV SCH ×2 (10:08→23:40)
[2017-02-09] MEDS: fentaNYL/NACL 100 ML IV SCH (10:11)
[2017-02-09] MEDS: ALBUMIN 5% 500 ML IV PRN (10:44)
--- NOTE | 2017-02-09 14:47 | PDINTPN ---
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 Course has been complicated by PNA as well and underwent bronch at least twice, growing H. Flu. * JAYANT aneurysm with significant infarct- s/p coiling and ventriculostomy. Planning head CT this AM and angiogram to evaluate vasospasm. Discussed with Dr. Morel in detail. Keeping BP and sodium parameters the same until further imaging. Remains on Keppra, Nimotop, and intrathecal milrinone for now. Ongoing fentanyl drip and propofol will need to be reduced/dc'd before accurate exam can be reliable for prognosis. * Acute Respiratory failure requiring mechanical ventilation 2/2 #1- complicated by presumed PNA as well with H flu ( s/p BAL). Current vent requirements low. Assuming we can reduce sedation effectively, will start weans as tolerated. If no progress in next few days will plan trach/PEG with likely LTACH transfer eventually. ABG show pulmonary stability. No change in vent settings. * PNA as above. Hemophilus should be well covered by Azithromycin, and WBC coming down. * ETOH- no signs of wd at this point * HTN- target 140-180 per NSG. Currently on levophed at 16 mcg but weaning down. Could consider vasopressin to achieve same goal with lower dose of levo and less chance of digital gangrene, or run CVP 8-12 (higher on vent) with fluid bolus and/or NICOM challenge. Watching levophed titration for now. * FEN- TF at goal, good bowel sounds and BMs. * * critical care time 60 minutes Subjective: Remains unresponsive but also on fentanyl and propofol drips. Angiogram pending to assess vasospasm. Objective: Vital Signs Temp Pulse Resp BP Pulse Ox 37.8 C 104 H 23 H 148/112 H 100 02/09/17 13:00 02/09/17 13:00 02/09/17 13:00 02/09/17 13:00 02/09/17 13:00 Microbiology 02/04/17 09:40 Blood Culture - Final Blood 02/04/17 09:40 Blood Culture - Final Blood 02/07/17 12:15 Gram Stain - Final Lung Left Lobe - Bronchial Washings Bronchial Washings Culture - Final Haemophilus Influenzae 02/06/17 18:00 Gram Stain - Final Csf From Shunt 02/06/17 13:30 Gram Stain - Final Lung Left Lower Lobe - Bronchial Washings Bronchial Washings Culture - Final Haemophilus Influenzae Laboratory Results 02/09/17 06:05 02/09/17 12:17 02/08/17 02/09/17 02/10/17 05:59 05:59 05:59 Intake Total 4248.37 5330.9 148.2 Output Total 3205 5272 2710 Balance 1043.37 58.9 -2561.8 Physical Exam - Physical Exam General Appearance: obtunded, other (sedated on fentanyl and propofol) EENT: PERRL/EOMI, ET tube Neck: normal inspection Respiratory: lungs clear, normal breath sounds, No respiratory distress Cardiac/Chest: regular rate, rhythm, No edema Abdomen: normal bowel sounds, non-tender, soft, No distended Skin: normal color, warm/dry Lymphatic: no adenopathy Extremities: No pedal edema Neuro/Psych: motor weakness (right sided- lack of motor response per RN), cognition abnormalities, other (corneals intact, over-breathes on vent) ICD10 Worksheet Patient Problems: Problems Problem Status Onset Aneurysm of anterior communicating artery Acute Subarachnoid hemorrhage Acute
--- NOTE | 2017-02-09 16:05 | PDANEPAE ---
ANE History of Present Illness anuerysm coiling ANE Past Medical History - Cardiovascular History Hx Hypertension: Yes Hx Arrhythmias: No - Pulmonary History Hx Oxygen in Use at Home: No Hx Sleep Apnea: No - Endocrine History Hx Diabetes: No Hypothyroid: No Hyperthyroid: No Obesity: no - Renal History Hx Renal Disorders: No - Neurological & Psychiatric Hx Hx Neurological and Psychiatric Disorders: Yes Neurological / Psychiatric History Comment: alcoholic - Other Health History Other Health History: chronic pain - Chronic Pain History Chronic Pain: Yes ANE Review of Systems - Exercise capacity Exercise capacity: unable to assess ANE Patient History - Allergies Allergies/Adverse Reactions: No Known Allergies Allergy (Unverified 02/02/17 09:31) - Home Medications Home Medications: Gabapentin [Neurontin 300 MG (*)] 300 mg PO BID 02/02/17 [Last Taken Unknown] Lisinopril [Zestril 10 mg (*)] 10 mg PO DAILY 02/02/17 [Last Taken Unknown] Naproxen [Naprosyn] 500 - 1,000 mg PO BID 02/02/17 [Last Taken 02/02/17 1000mg] oxyCODONE HCL/ACETAMINOPHEN [Percocet 10-325 mg Tablet] 1 each PO Q6HRS PRN [Last Taken Unknown] - NPO status NPO Since - Liquids (Date): 02/01/17 NPO Since - Solids (Date): 02/01/17 NPO Since - Solids (Time): 21:30 - Smoking Hx Smoking Status: Current every day smoker - Alcohol Use Alcohol Use: Heavy ANE Labs/Vital Signs - Labs Result Diagrams: 02/09/17 06:05 02/09/17 12:17 - Vital Signs Blood Pressure: 161/93 Heart Rate: 114 Respiratory Rate: 28 O2 Sat (%): 100 Height: 162.56 cm Weight: 71.8 kg ANE Physical Exam - Pulmonary Pulmonary: respiratory distress - Cardiovascular Cardiovascular: regular rate and rhythym - ASA Status ASA Status: III ANE Anesthesia Plan Anesthesia Plan: general endotracheal anesthesia
--- NOTE | 2017-02-09 16:43 | HOSPPROG ---
Hospitalist Progress Note Assessment/Plan: * Acute subarachnoid hemorrhage due to JAYANT aneurysm s/p coiling --> vasospasm/ CVA -intrathecal milrinone TID -hospitalist to push 10:00pm dose intra-thecal milrinone -keppra for seizure prevention -Nimodipine for vasospasm -IV norepi gtt - goal SBP 140-180 -consider add vasopressin to decrease pressor needs -consider add volume to increase CVP (currently 6) -3% saline per neurosurgery - goal Na > 145 * Fever - bronch cx growing H flu - presumed PNA -azithromycin * Acute respiratory failure - vent -likely to proceed with trach/PEG soon * Mucus plugging - bronch prn per pulmonary Subjective: Events noted. Patient intubated. Objective: Vital Signs Temp Pulse Resp BP Pulse Ox 37.8 C 114 H 28 H 161/93 H 100 02/09/17 16:00 02/09/17 16:05 02/09/17 16:05 02/09/17 16:05 02/09/17 16:05 Microbiology 02/06/17 18:00 Gram Stain - Final Csf From Shunt 02/04/17 09:40 Blood Culture - Final Blood 02/04/17 09:40 Blood Culture - Final Blood 02/07/17 12:15 Gram Stain - Final Lung Left Lobe - Bronchial Washings Bronchial Washings Culture - Final Haemophilus Influenzae 02/06/17 13:30 Gram Stain - Final Lung Left Lower Lobe - Bronchial Washings Bronchial Washings Culture - Final Haemophilus Influenzae Laboratory Results 02/09/17 06:05 02/09/17 12:17 02/08/17 02/09/17 02/10/17 05:59 05:59 05:59 Intake Total 4248.37 5330.9 148.2 Output Total 3205 5272 3507 Balance 1043.37 58.9 -3358.[address] - evolving CVA and blood case d/w Dr. Stiles regarding CVP and pressor needs - Physical Exam Constitutional: no apparent distress, appears nourished, not in pain Cardiovascular: regular rate and rhythym, no murmur, rub, or gallop Respiratory: no respiratory distress, no rales or rhonchi, clear to auscultation Gastrointestinal: normoactive bowel sounds, soft, non-tender abdomen, no palpable masses Skin: no rashes or abrasions, no fluctuance, no induration Neurologic: No AAOx3 Psychiatric: encephalopathic, No interacting appropriately, No anxious, No agitated ICD10 Worksheet Patient Problems: Problems Problem Status Onset Aneurysm of anterior communicating artery Acute Subarachnoid hemorrhage Acute
[2017-02-09] MEDS ORDERED: VERAPAMIL 5 MG/2 ML VIAL ONE ×2 (16:44→16:53)
[2017-02-09] MEDS ORDERED: IOPAMIDOL (ISOVUE-300) 100 ML BTL ONE (17:20)
--- NOTE | 2017-02-09 17:28 | POSTANESTH ---
Post Anesthetic Evaluation Cardiovascular Status: Similar to Pre-Op Cond Respiratory Status: Similar to Pre-op Cond. Level of Consciousness/Mental Status: Other, See Comment (sedated) Pain Control: Adequate, Prn Tx Ordered Nausea/Vomiting Control: Adequate, Prn Tx Ordered Complications Possibly Related to Anesthesia: None Noted
--- NOTE | 2017-02-09 18:04 | ASMTCMCOM ---
CM Note CM Note Notes: Met briefly with patient's , son, mother and other relatives. Dr. Morel had spoken to them about his hopes and expectations for patient. Asked family if they might be interested in a "Family Meeting" to talk about what they had just heard, they were cautiously hopeful and felt that they didn't need a meeting today but possibly . Patient may be needing a trach and PEG towards the end of the week. Date Signed: 02/09/2017 06:03 PM Electronically Signed By:Claudia Acevedo
[2017-02-09 18:30] LABS: POTASSIUM 3.5 mEq/L (3.5-5.2); SODIUM 146 mEq/L (134-144)
[2017-02-09] MEDS: PROPOFOL/EMULSION 50 ML IV SCH (19:34)
[2017-02-09] MEDS: POTASSIUM Cl (KCl) 50 ML IV SCH ×3 (19:34→20:38)
[2017-02-09] MEDS: levETIRAcetam 500 MG/5 ML UDCUP TUBE SCH (20:07)
[2017-02-09] MEDS: ACETAMINOPHEN 650 MG/20.3 ML UDCUP PO PRN (20:07)
[2017-02-09] MEDS: FAMOTIDINE 20 MG TAB TUBE SCH (20:08)
[2017-02-09] MEDS: PETROLAT,WHT/MIN OIL/SOD CHL 3.5 GM OPHT.OINT EACHEYE PRN (20:48)
[2017-02-10] MEDS: PROPOFOL/EMULSION 50 ML IV SCH ×2 (00:50→06:48)
[2017-02-10] MEDS: niMODipine 33.333 MG/ML UDL TUBE SCH ×11 (02:00→22:09)
[2017-02-10 05:28] LABS: % IMMATURE GRANULYOCYTES 0.6 % (0.0-1.1); ABSOLUTE IMMATURE GRANULOCYTES 0.08 10^3/uL (0.00-0.10); ADD DIFF? NO; ADD MORPH? NO; ADD SCAN? NO; ATYPICAL LYMPHOCYTE FLAG 90 (0-99); FRAGMENT RBC FLAG 0 (0-99); HEMATOCRIT 38.9 % (38.0-47.0); HEMOGLOBIN 12.4 g/dL (12.6-16.3); LEFT SHIFT FLG 50 (0-99); LIPEMIA HEMOLYSIS FLAG 80 (0-99); MEAN CELL HEMOGLOBIN 33.5 pg (27.9-34.1); MEAN CELL HEMOGLOBIN CONCENTR. 31.9 g/dL (32.4-36.7); MEAN CELL VOLUME 105.1 fL (81.5-99.8); MEAN PLATELET VOLUME 11.1 fL (8.7-11.7); PLATELET CLUMPS FLAG 10 (0-99); PLATELET COUNT 274 10^3/uL (150-400); RED CELL DISTRIBUTION WIDTH 12.4 % (11.5-15.2)
[2017-02-10 05:38] LABS: ANION GAP 11 mEq/L (8-16); CALCIUM 9.6 mg/dL (8.5-10.4); CARBON DIOXIDE 26 mEq/l (22-31); CHLORIDE 108 mEq/L (97-110); CREATININE 0.4 mg/dL (0.6-1.0); GLOMERULAR FILTRATION RATE > 60; GLUCOSE 139 mg/dL (70-100); POTASSIUM 3.9 mEq/L (3.5-5.2); SODIUM 145 mEq/L (134-144)
[2017-02-10] MEDS: ACETAMINOPHEN 650 MG/20.3 ML UDCUP PO PRN ×3 (06:09→22:08)
[2017-02-10] MEDS ORDERED: POTASSIUM CL 10 MEQ TAB TUBE ONE (07:52)
--- NOTE | 2017-02-10 07:59 | SOAPPROG ---
SOAP Progress Note Assessment/Plan: Assessment/Plan : 46 yo F s/p coiling of acomm aneursym -Will liberate BP parameters to 130-180 -3%saline off. follow Na levels, notify if below 145 -Continue tid Milrinone intraventricular injections -ICP is now 1. It is open a zero and functioning well. -Call NS with any changes -D/W Dr. Morel Objective: Neuro: Opens eyes to voice, PERRLA. will relfexively move both legs to painful stimuli. Subjective: eyes closed, grimaces to painful stim. No overnight events per RN Objective: Vital Signs Temp Pulse Resp BP Pulse Ox 38.2 C 121 H 21 H 155/89 H 100 02/10/17 07:00 02/10/17 07:00 02/10/17 07:00 02/10/17 07:00 02/10/17 07:00 Microbiology 02/06/17 18:00 Gram Stain - Final Csf From Shunt 02/04/17 09:40 Blood Culture - Final Blood 02/04/17 09:40 Blood Culture - Final Blood 02/07/17 12:15 Gram Stain - Final Lung Left Lobe - Bronchial Washings Bronchial Washings Culture - Final Haemophilus Influenzae Laboratory Results 02/10/17 05:00 02/10/17 05:00 02/09/17 02/10/17 02/11/17 05:59 05:59 05:59 Intake Total 5330.9 5331.3 Output Total 5272 6198 23 Balance 58.9 -866.7 -23 ICD10 Worksheet Patient Problems: Problems Problem Status Onset Aneurysm of anterior communicating artery Acute Subarachnoid hemorrhage Acute
[2017-02-10] MEDS: FAMOTIDINE 20 MG TAB TUBE SCH ×2 (08:22→20:29)
[2017-02-10] MEDS: levETIRAcetam 500 MG/5 ML UDCUP TUBE SCH ×2 (08:22→20:19)
[2017-02-10] MEDS: BACITRACIN OINTMENT 1 PACKET TP SCH ×2 (08:22→20:28)
[2017-02-10] MEDS: NS 1,000 ML IV SCH ×2 (08:23→18:40)
[2017-02-10] MEDS: AZITHROMYCIN IV 500 MG in NS 250 ML IV SCH (08:23)
[2017-02-10] MEDS: SENNOSIDES 17.6 MG/10 ML UDL TUBE SCH ×2 (08:54→20:17)
[2017-02-10] MEDS ORDERED: ALBUMIN 25% 100 ML IV ONE (11:00)
[2017-02-10 11:35] LABS: BASE EXCESS 2.9 mEq/L (-2.5-2.5); BICARBONATE 26 mEq/L (22-26); MEASURED OXYGEN SATURATION 98 % (92-95); PCO2 40 mmHg (34-38); PO2 117 mmHg (65-75); TCO2 28 mEq/L (23-27)
[2017-02-10 11:36] LABS: CPAP YES; O2 CONCENTRATIION 40 % (0-100); P/F RATIO 293 RATIO; PATIENT RATE 26
[2017-02-10 11:37] LABS: END TIDAL CO2 36; PRESSURE SUPPORT 5
--- NOTE | 2017-02-10 12:25 | HOSPPROG ---
Hospitalist Progress Note Assessment/Plan: * Acute subarachnoid hemorrhage due to JAYANT aneurysm s/p coiling --> vasospasm/ CVA -s/p intrathecal milrinone TID (stopped 02/09) -keppra for seizure prevention -Nimodipine for vasospasm -IV norepi gtt - goal SBP 140-180 -consider add vasopressin to decrease pressor needs -Adding volume/fluids: Goal to keep volume up. NS increased to 150ml/hr today -Albumin PRN. Given this morning. -PRN 3% saline per neurosurgery - goal Na > 145. Last given 02/09. Na this morning is 145. Repeat pending. * Fever - bronch cx growing H flu - presumed PNA -azithromycin -Leukocytosis is improving. * Acute respiratory failure - vent -wean off sedation as tolerated. -likely to proceed with trach/PEG soon if cannot get off Vent. Would likely be done early next week. * Mucus plugging - bronch prn per pulmonary Plan: -wean sedation if tolerates -vent for now -Cont with BP parameters and fluid parameters per above -Likely will need LTACH -D/W team during ICU team rounds -SCD's -Nutrition Subjective: No new events. BP at target. Sedated, on Vent. First encounter with this patient. Objective: Vital Signs Temp Pulse Resp BP Pulse Ox 38.2 C 118 H 22 H 162/100 H 100 02/10/17 11:00 02/10/17 11:25 02/10/17 11:00 02/10/17 11:00 02/10/17 11:25 Microbiology 02/06/17 18:00 Gram Stain - Final Csf From Shunt 02/04/17 09:40 Blood Culture - Final Blood 02/04/17 09:40 Blood Culture - Final Blood 02/07/17 12:15 Gram Stain - Final Lung Left Lobe - Bronchial Washings Bronchial Washings Culture - Final Haemophilus Influenzae Laboratory Results 02/10/17 05:00 02/09/17 02/10/17 02/11/17 05:59 05:59 05:59 Intake Total 5330.9 5331.3 Output Total 5272 8879 490 Balance 58.9 -866.7 -490 - Physical Exam Constitutional: no apparent distress Eyes: PERRL Ears, Nose, Mouth, Throat: moist mucous membranes Cardiovascular: regular rate and rhythym, No JVD, No edema Respiratory: reduced air movement, No clear to auscultation, No respiratory distress Gastrointestinal: normoactive bowel sounds, soft, non-tender abdomen Skin: warm Psychiatric: encephalopathic ICD10 Worksheet Patient Problems: Problems Problem Status Onset Aneurysm of anterior communicating artery Acute Subarachnoid hemorrhage Acute
--- NOTE | 2017-02-10 13:11 | PDINTPN ---
Prosecuting Attorney Progress Note Assessment/Plan: Assessment/plan: 46 F with PMH of ETOH admitted with headache and altered mental status found to have JAYANT anuerysm, s/p coil and ventriculostomy and poor recovery. Course has been complicated by PNA as well and underwent bronch at least twice, growing H. Flu. * JAYANT aneurysm with significant infarct- s/p coiling and ventriculostomy. CT stable so milrinone dc'd as was 3% saline. BP parameters loosened though remains on levophed at 12 mcg. Fentanyl dc'd today and can use propofol prn. Continue with daily wake up as tolerated. * Acute Respiratory failure requiring mechanical ventilation 2/2 #1- complicated by presumed PNA as well with H flu ( s/p BAL). Weaned today on CPAP 5/5 without difficulty and excellent post-wean ABG. Rest some and may resume CPAP trial this evening and daily. If alertness improves may be able to extubate by the end of the week. If not will plan trach/PEG as previously discussed. * PNA as above. Hemophilus should be well covered by Azithromycin. Stable * ETOH- no signs of wd at this point * HTN- target reduced by NSG today. Continue weaning levophed. * FEN- TF at goal, good bowel sounds and BMs. * Discussed in detail on multidisciplinary rounds. * critical care time 40 minutes 02/10/17 13:07 Subjective: Slight improvement in responsiveness today with trace spontaneous eye opening and more brisk response to painful stim. Objective: Vital Signs Temp Pulse Resp BP Pulse Ox 37.9 C 120 H 22 H 166/96 H 100 02/10/17 12:00 02/10/17 12:55 02/10/17 12:00 02/10/17 12:00 02/10/17 12:55 Microbiology 02/06/17 18:00 Gram Stain - Final Csf From Shunt 02/04/17 09:40 Blood Culture - Final Blood 02/04/17 09:40 Blood Culture - Final Blood 02/07/17 12:15 Gram Stain - Final Lung Left Lobe - Bronchial Washings Bronchial Washings Culture - Final Haemophilus Influenzae Laboratory Results 02/10/17 05:00 02/09/17 02/10/17 02/11/17 05:59 05:59 05:59 Intake Total 5330.9 5331.3 Output Total 5742 6179 760 Balance 58.9 -866.7 -760 Physical Exam - Physical Exam General Appearance: no apparent distress, obtunded EENT: PERRL/EOMI (2 mm) Neck: supple Respiratory: rhonchi (slight), No respiratory distress, No wheezing, No prolonged expiration Cardiac/Chest: regular rate, rhythm, No edema Abdomen: normal bowel sounds, non-tender, soft, No distended Skin: normal color, warm/dry Lymphatic: no adenopathy Extremities: No pedal edema Neuro/Psych: cognition abnormalities ICD10 Worksheet Patient Problems: Problems Problem Status Onset Aneurysm of anterior communicating artery Acute Subarachnoid hemorrhage Acute
[2017-02-10] MEDS: PROPOFOL/EMULSION 100 ML IV SCH ×2 (13:23→21:35)
--- NOTE | 2017-02-10 17:10 | WOCRNPDOC ---
WOCRN Advanced Assessment Note - Skin Integrity Problem, Advanced Assess Left Thigh Unknown Dressing Type: Open to Air Skin Integrity Problem Comment: Scarred area with minimal and blanching erythema. No concerns. Wound care will sign off. Lola ZAVALA in room.
[2017-02-10] MEDS: ALBUMIN 5% 500 ML IV PRN (17:38)
[2017-02-10 18:59] LABS: POTASSIUM 3.2 mEq/L (3.5-5.2); SODIUM 144 mEq/L (134-144)
[2017-02-10] MEDS: NOREPINEPHRINE BITARTRATE 16 MG in NS 250 ML IV SCH (20:18)
[2017-02-10] MEDS: POTASSIUM Cl (KCl) 50 ML IV SCH ×2 (20:28→21:35)
[2017-02-10] MEDS: CHLORHEXIDINE GLUCONATE 15 ML UDL PO SCH (20:28)
[2017-02-11] MEDS: niMODipine 33.333 MG/ML UDL TUBE SCH ×12 (00:16→22:18)
[2017-02-11] MEDS: ALBUMIN 5% 500 ML IV PRN ×2 (01:10→09:44)
[2017-02-11] MEDS: NS 1,000 ML IV SCH ×3 (04:09→21:06)
[2017-02-11 04:27] LABS: % IMMATURE GRANULYOCYTES 0.6 % (0.0-1.1); ABSOLUTE IMMATURE GRANULOCYTES 0.06 10^3/uL (0.00-0.10); ADD DIFF? NO; ADD MORPH? NO; ADD SCAN? NO; ATYPICAL LYMPHOCYTE FLAG 90 (0-99); FRAGMENT RBC FLAG 0 (0-99); HEMATOCRIT 35.8 % (38.0-47.0); HEMOGLOBIN 11.4 g/dL (12.6-16.3); LEFT SHIFT FLG 30 (0-99); LIPEMIA HEMOLYSIS FLAG 80 (0-99); MEAN CELL HEMOGLOBIN 33.5 pg (27.9-34.1); MEAN CELL HEMOGLOBIN CONCENTR. 31.8 g/dL (32.4-36.7); MEAN CELL VOLUME 105.3 fL (81.5-99.8); MEAN PLATELET VOLUME 10.8 fL (8.7-11.7); PLATELET CLUMPS FLAG 10 (0-99); PLATELET COUNT 268 10^3/uL (150-400); RED CELL DISTRIBUTION WIDTH 12.4 % (11.5-15.2)
[2017-02-11 04:35] LABS: ANION GAP 13 mEq/L (8-16); CALCIUM 10.2 mg/dL (8.5-10.4); CARBON DIOXIDE 24 mEq/l (22-31); CHLORIDE 107 mEq/L (97-110); CREATININE 0.4 mg/dL (0.6-1.0); GLOMERULAR FILTRATION RATE > 60; GLUCOSE 113 mg/dL (70-100); POTASSIUM 4.2 mEq/L (3.5-5.2); SODIUM 144 mEq/L (134-144)
[2017-02-11] MEDS: ACETAMINOPHEN 650 MG/20.3 ML UDCUP PO PRN ×2 (05:36→13:38)
[2017-02-11] MEDS: PROPOFOL/EMULSION 50 ML IV SCH (05:36)
--- NOTE | 2017-02-11 07:48 | NEUSURGPN ---
Assessment/Plan: Assessment/Plan: Assessment/Plan : 46 yo F s/p coiling of acomm aneursym -Will liberate BP parameters to 130-180 -3%saline off. follow Na levels, notify if below 145- has been at 144 - recheck at noon. OK to leave 3% off per Dr Morel. -DC Milrinone yesterday -ICP is now 1. EVD open a zero and functioning well. -Neuro: pt grimacing and bucking vent, moving RLE spontaneously and opening eyes spontaneously. Not following commands -Call NS with any changes -D/W Dr. Morel Subjective: Pt intubated and sedated. Objective: Intubated and sedated Moving RLE spontaneously, jerking motion PERRL Grimacing and opens eyes spontaneously Not following commands EVD site cdi Urinary Catheter in Place: Yes Urinary Catheter Indication: Surgical Requirement Catheter Insertion Date: 02/06/17 - Physician Discussed Patient with Dr.: Morel Neurosurgery Physical Exam - Vitals, I&O, Labs I and O 02/10/17 02/11/17 02/12/17 05:59 05:59 05:59 Intake Total 5331.3 5284.7 20 Output Total 6198 4112 250 Balance -866.7 1172.7 -230 Weight 68.6 kg 68.6 kg Intake: IV Intake (ml) 600 IV Infused (ml) 4212.3 3566.7 Albumin 5% 500 ml @ As 500 500 Directed IV PRN PRN Rx#: [id number] Norepinephrine Bitartrate 206.2 16 mg In D5w 250 ml @ Per Protocol IV CONT MILVIA Rx#:[id number] Norepinephrine Bitartrate 175 137 16 mg In Ns 250 ml @ Per Protocol IV CONT MILVIA Rx# :[id number] Ns 1,000 ml @ 75 mls/hr 1827.9 2515 IV CONT MILVIA Rx#: [id number] POTASSIUM Cl (KCl) 50 ml 150 200 @ 50 mls/hr IV Q1H MILVIA Rx #:[id number] Propofol/Emulsion 100 ml 191.9 214.7 @ As Directed IV AD MILVIA Rx#:[id number] SODIUM Cl 3% 500 ml @ 40 1074.8 mls/hr IV CONT MILVIA Rx#: [id number] fentaNYL/NACL 100 ml @ 86.5 Per Protocol IV CONT MILVIA Rx#:[id number] Tube Feeding (ml) 859 738 Tube Flush (ml) 260 380 20 Output: Urine (ml) 5950 3870 250 Catheter 5950 3870 250 CSF Drainage Amount 248 242 Right Ventriculostomy 248 242 Other: Number of Stools Catheter 1 1 Microbiology 02/06/17 18:00 Gram Stain - Final Csf From Shunt Vital Signs Temp Pulse Resp BP Pulse Ox 37.8 C 110 H 18 150/85 H 100 02/11/17 06:00 02/11/17 06:00 02/11/17 06:00 02/11/17 06:00 02/11/17 06:00 Laboratory Results 02/11/17 04:10 02/11/17 04:10 ICD10 Worksheet Patient Problems: Problems Problem Status Onset Aneurysm of anterior communicating artery Acute Subarachnoid hemorrhage Acute
[2017-02-11] MEDS: SENNOSIDES 17.6 MG/10 ML UDL TUBE SCH ×2 (07:57→20:28)
[2017-02-11] MEDS: levETIRAcetam 500 MG/5 ML UDCUP TUBE SCH ×2 (08:03→20:21)
[2017-02-11] MEDS: BACITRACIN OINTMENT 1 PACKET TP SCH ×2 (08:03→20:21)
[2017-02-11] MEDS: AZITHROMYCIN IV 500 MG in NS 250 ML IV SCH (08:03)
[2017-02-11] MEDS: FAMOTIDINE 20 MG TAB TUBE SCH ×2 (08:03→20:21)
[2017-02-11] MEDS: CHLORHEXIDINE GLUCONATE 15 ML UDL PO SCH ×2 (08:04→20:27)
[2017-02-11 10:32] LABS: SODIUM 147 mEq/L (134-144)
--- NOTE | 2017-02-11 13:24 | PDINTPN ---
Ginner Helper Progress Note Assessment/Plan: Assessment/plan: 46 F with PMH of ETOH admitted with headache and altered mental status found to have JAYANT anuerysm, s/p coil and ventriculostomy and poor recovery. Course has been complicated by PNA as well and underwent bronch at least twice, growing H. Flu. * JAYANT aneurysm with significant infarct- s/p coiling and ventriculostomy. CT stable so milrinone dc'd as was 3% saline on 02/10. Levophed nearly off, though CVP consistently low- not sure if additional albumin needed but will defer to neurosurgery. * Acute Respiratory failure requiring mechanical ventilation 2/ #1- complicated by presumed PNA as well with H flu ( s/p BAL). Weaning well though moderate secretions. Improved mental status but still not appropriate for extubation. Continue efforts but likely will need trach. * PNA as above. Hemophilus should be well covered by Azithromycin. Stable * ETOH- no signs of wd at this point * HTN- stable * FEN- TF at goal, good bowel sounds and BMs. * Discussed in detail on multidisciplinary rounds. * critical care time 30 minutes 02/10/17 13:07 02/11/17 13:21 Subjective: Weaned 4 hrs yesterday am and 1 hour last pm. Sedation held until patient started bucking vent Objective: Vital Signs Temp Pulse Resp BP Pulse Ox 37.5 C 120 H 24 H 164/80 H 100 02/11/17 13:00 02/11/17 13:00 02/11/17 13:00 02/11/17 13:00 02/11/17 13:00 Microbiology 02/06/17 18:00 Gram Stain - Final Csf From Shunt Laboratory Results 02/11/17 04:10 02/11/17 09:50 02/10/17 02/11/17 02/12/17 05:59 05:59 05:59 Intake Total 5331.3 5284.7 1673 Output Total 9044 1392 2351 Balance -866.7 1172.7 -678 Physical Exam - Physical Exam General Appearance: obtunded, unresponsive EENT: PERRL/EOMI Respiratory: lungs clear, normal breath sounds, No respiratory distress Cardiac/Chest: regular rate, rhythm, No edema Abdomen: non-tender, soft, No distended Skin: normal color, warm/dry Lymphatic: no adenopathy Extremities: No pedal edema Neuro/Psych: cognition abnormalities ICD10 Worksheet Patient Problems: Problems Problem Status Onset Aneurysm of anterior communicating artery Acute Subarachnoid hemorrhage Acute
--- NOTE | 2017-02-11 14:33 | HOSPPROG ---
Hospitalist Progress Note Assessment/Plan: 46 yo F w probable alcoholism here w SAH 2/2 aneurysm rupture Acute subarachnoid hemorrhage due to JAYANT aneurysm s/p coiling --> vasospasm/CVA -s/p intrathecal milrinone TID (stopped 02/09) -keppra for seizure prevention -Nimodipine for vasospasm -IV norepi gtt - goal SBP 140-180 -consider add vasopressin to decrease pressor needs -Adding volume/fluids: Goal to keep volume up. NS increased to 150ml/hr today -Albumin PRN. Given this morning. -3% saline has been stopped. Na 147 Fever - bronch cx growing H flu - presumed PNA -azithromycin -Leukocytosis is improving. Acute respiratory failure - vent -wean off sedation as tolerated. -likely to proceed with trach/PEG soon if cannot get off Vent. Would likely be done early next week. Mucus plugging - bronch prn per pulmonary diarrhea: follow proph: scd's Subjective: case d/w dr guevara Objective: Vital Signs Temp Pulse Resp BP Pulse Ox 37.7 C 121 H 22 H 164/80 H 100 02/11/17 14:00 02/11/17 14:00 02/11/17 14:00 02/11/17 13:00 02/11/17 14:00 Microbiology 02/06/17 18:00 Gram Stain - Final Csf From Shunt Laboratory Results 02/11/17 04:10 02/11/17 09:50 02/10/17 02/11/17 02/12/17 05:59 05:59 05:59 Intake Total 5331.3 5284.7 1673 Output Total 6198 4112 2351 Balance -866.7 1172.7 -678 - Physical Exam Constitutional: other (intubated, sedated) Eyes: anicteric sclera Ears, Nose, Mouth, Throat: moist mucous membranes, ears appear normal Cardiovascular: regular rate and rhythym, no murmur, rub, or gallop Respiratory: no respiratory distress, no rales or rhonchi, bronchial breath sounds Gastrointestinal: normoactive bowel sounds, soft, non-tender abdomen Genitourinary: sanchez in urethra Skin: warm, normal color Musculoskeletal: No full muscle strength Neurologic: No AAOx3 ICD10 Worksheet Patient Problems: Problems Problem Status Onset Aneurysm of anterior communicating artery Acute Subarachnoid hemorrhage Acute
[2017-02-11] MEDS ORDERED: MAGNESIUM HYDROXIDE 30 ML UDCUP TUBE PRN (16:00)
[2017-02-11] MEDS ORDERED: LACTULOSE 20 GM/30 ML UDCUP TUBE PRN (16:00)
[2017-02-11] MEDS ORDERED: POLYETHYLENE GLYCOL 3350 17 GM PKT TUBE PRN (16:00)
[2017-02-11 18:11] LABS: POTASSIUM 3.3 mEq/L (3.5-5.2)
[2017-02-11] MEDS ORDERED: POTASSIUM CL 20 MEQ/15 ML UDCUP TUBE ONE (18:22)
[2017-02-11] MEDS: ACETAMINOPHEN 650 MG/20.3 ML UDCUP TUBE PRN (18:35)
[2017-02-11] MEDS: NOREPINEPHRINE BITARTRATE 16 MG in NS 250 ML IV SCH (20:09)
[2017-02-12] MEDS: niMODipine 33.333 MG/ML UDL TUBE SCH ×12 (00:11→22:06)
[2017-02-12 05:57] LABS: ANION GAP 13 mEq/L (8-16); CALCIUM 9.5 mg/dL (8.5-10.4); CARBON DIOXIDE 26 mEq/l (22-31); CHLORIDE 106 mEq/L (97-110); CREATININE 0.4 mg/dL (0.6-1.0); GLOMERULAR FILTRATION RATE > 60; GLUCOSE 118 mg/dL (70-100); POTASSIUM 4.3 mEq/L (3.5-5.2); SODIUM 145 mEq/L (134-144)
[2017-02-12] MEDS: FAMOTIDINE 20 MG TAB TUBE SCH ×2 (08:30→20:04)
[2017-02-12] MEDS: levETIRAcetam 500 MG/5 ML UDCUP TUBE SCH ×2 (08:30→20:05)
[2017-02-12] MEDS: CHLORHEXIDINE GLUCONATE 15 ML UDL PO SCH ×2 (08:30→20:04)
[2017-02-12] MEDS: BACITRACIN OINTMENT 1 PACKET TP SCH ×2 (08:30→20:04)
[2017-02-12 08:33] LABS: CLOSTRIDIUM DIFFICILE DNA POSITIVE (NEGATIVE)
[2017-02-12 08:34] LABS: PRINT OR CALL CRITICALS TECH CALL
[2017-02-12] MEDS: SENNOSIDES 17.6 MG/10 ML UDL TUBE SCH ×2 (08:44→20:05)
[2017-02-12] MEDS: AZITHROMYCIN IV 500 MG in NS 250 ML IV SCH (08:44)
--- NOTE | 2017-02-12 08:48 | SOAPPROG ---
SOAP Progress Note Assessment/Plan: Assessment/Plan : 46 yo F s/p coiling of acomm aneursym -off sedation and opening eyes spontaneously -BP parameters to 130-180 -Na 145 -ICPs low It is open 5 and functioning well. Continue. -plan is to extubated today -Call NS with any changes -D/W Dr. Morel 02/12/17 08:41 02/12/17 08:49 Subjective: has been off sedation overnight. Opens eyes to voice still intubated Objective: Vital Signs Temp Pulse Resp BP Pulse Ox 37.7 C 119 H 22 H 135/71 H 100 02/12/17 08:01 02/12/17 08:01 02/12/17 08:01 02/12/17 08:01 02/12/17 08:01 Microbiology 02/06/17 18:00 Gram Stain - Final Csf From Shunt Laboratory Results 02/11/17 04:10 02/12/17 05:28 02/11/17 02/12/17 02/13/17 05:59 05:59 05:59 Intake Total 5284.7 4422 Output Total 4112 4270 31 Balance 1172.7 152 -31 Neuro; PERRLA tries to FC with legs opens eyes to voice stim won't fc with arm she will nod her head ICD10 Worksheet Patient Problems: Problems Problem Status Onset Aneurysm of anterior communicating artery Acute Subarachnoid hemorrhage Acute
[2017-02-12] MEDS: ACETAMINOPHEN 650 MG/20.3 ML UDCUP TUBE PRN ×2 (08:49→17:17)
--- NOTE | 2017-02-12 12:42 | HOSPPROG ---
Hospitalist Progress Note Assessment/Plan: 46 yo F w probable alcoholism here w SAH 2/2 aneurysm rupture c diff: start po vanc Acute subarachnoid hemorrhage due to JAYANT aneurysm s/p coiling --> vasospasm/CVA -s/p intrathecal milrinone TID (stopped 02/09) -keppra for seizure prevention -Nimodipine for vasospasm -IV norepi gtt - goal SBP 140-180 -consider add vasopressin to decrease pressor needs -Adding volume/fluids: Goal to keep volume up. NS increased to 150ml/hr today -Albumin PRN. Given this morning. -3% saline has been stopped. Na 147 Fever - bronch cx growing H flu - presumed PNA -azithromycin -Leukocytosis is improving. Acute respiratory failure - vent -wean off sedation as tolerated. -likely to proceed with trach/PEG soon if cannot get off Vent. Would likely be done early next week. Mucus plugging - bronch prn per pulmonary diarrhea: follow proph: scd's Subjective: case d/w dr guevara. cdiff + Objective: Vital Signs Temp Pulse Resp BP Pulse Ox 37.6 C 104 H 26 H 109/57 L 100 02/12/17 10:00 02/12/17 12:00 02/12/17 12:00 02/12/17 12:00 02/12/17 12:00 Microbiology 02/06/17 18:00 Gram Stain - Final Csf From Shunt Laboratory Results 02/11/17 04:10 02/12/17 11:40 02/11/17 02/12/17 02/13/17 05:59 05:59 05:59 Intake Total 5284.7 4422 Output Total 4112 4270 755 Balance 1172.7 152 -755 - Physical Exam Constitutional: no apparent distress, appears nourished Eyes: anicteric sclera Ears, Nose, Mouth, Throat: ears appear normal Cardiovascular: regular rate and rhythym, no murmur, rub, or gallop, systolic murmur Respiratory: no respiratory distress, no rales or rhonchi Gastrointestinal: normoactive bowel sounds, soft, non-tender abdomen, No guarding, No rebound Genitourinary: sanchez in urethra Skin: warm, normal color Musculoskeletal: No full muscle strength Neurologic: No AAOx3 ICD10 Worksheet Patient Problems: Problems Problem Status Onset Aneurysm of anterior communicating artery Acute C. difficile diarrhea Acute ~02/12/17 Subarachnoid hemorrhage Acute
[2017-02-12] MEDS: VANCOMYCIN 125 MG/2.5 ML UDL PO SCH ×3 (13:35→20:42)
--- NOTE | 2017-02-12 14:37 | PDINTPN ---
Expert Medical Writer Progress Note Assessment/Plan: Assessment/plan: 46 F with PMH of ETOH admitted with headache and altered mental status found to have JAYANT anuerysm, s/p coil and ventriculostomy and poor recovery. Course has been complicated by PNA as well and underwent bronch at least twice, growing H. Flu. * JAYANT aneurysm with significant infarct- s/p coiling and ventriculostomy. CT stable so milrinone dc'd as was 3% saline on 02/10. Intermittent levophed * Acute Respiratory failure requiring mechanical ventilation 2/2 #1- complicated by presumed PNA as well with H flu ( s/p BAL). Ongoing excellent weaning and waxing/waning mental status. Not quite ready for extubation, but may be imminent. Continue weaning and avoid sedation as much as possible- if needed use propofol alone. * PNA as above. Hemophilus should be well covered by Azithromycin. Stable * ETOH- no signs of wd at this point, and not likely to manifest this long into hospitalization. * HTN- stable * FEN- TF at goal, good bowel sounds and BMs. * Discussed in detail on multidisciplinary rounds. 02/10/17 13:07 02/11/17 13:21 02/12/17 14:35 Subjective: some eye opening , plus/minus commands. Weaning very well Objective: Vital Signs Temp Pulse Resp BP Pulse Ox 38 C 110 H 32 H 123/63 H 100 02/12/17 14:00 02/12/17 14:00 02/12/17 14:00 02/12/17 14:00 02/12/17 14:00 Microbiology 02/06/17 18:00 Gram Stain - Final Csf From Shunt Laboratory Results 02/11/17 04:10 02/12/17 11:40 02/11/17 02/12/17 02/13/17 05:59 05:59 05:59 Intake Total 5284.7 4422 Output Total 4112 4270 768 Balance 1172.7 152 -768 Physical Exam - Physical Exam General Appearance: no apparent distress, obtunded, other (wd to pain x 4, though less in RUE) EENT: PERRL/EOMI Neck: supple Respiratory: lungs clear, normal breath sounds, No respiratory distress Cardiac/Chest: regular rate, rhythm, No edema Abdomen: non-tender, soft, No distended Skin: normal color, warm/dry Lymphatic: no adenopathy Extremities: No pedal edema Neuro/Psych: cognition abnormalities ICD10 Worksheet Patient Problems: Problems Problem Status Onset Aneurysm of anterior communicating artery Acute C. difficile diarrhea Acute ~02/12/17 Subarachnoid hemorrhage Acute
[2017-02-12] MEDS: NS 1,000 ML IV SCH (18:15)
[2017-02-12 18:32] LABS: POTASSIUM 3.9 mEq/L (3.5-5.2); SODIUM 143 mEq/L (134-144)
[2017-02-12] MEDS ORDERED: POTASSIUM CL 10 MEQ TAB PO ONE (18:58)
[2017-02-12] MEDS ORDERED: POTASSIUM CL 20 MEQ/15 ML UDCUP PO ONE (19:15)
[2017-02-13] MEDS: niMODipine 33.333 MG/ML UDL TUBE SCH ×12 (00:07→22:04)
[2017-02-13] MEDS: NS 1,000 ML IV SCH ×2 (04:06→15:11)
[2017-02-13] MEDS: ACETAMINOPHEN 650 MG/20.3 ML UDCUP TUBE PRN ×2 (05:57→16:09)
[2017-02-13] MEDS: VANCOMYCIN 125 MG/2.5 ML UDL PO SCH ×4 (05:57→20:01)
--- NOTE | 2017-02-13 06:25 | SOAPPROG ---
SOAP Progress Note Assessment/Plan: Assessment: 46F PBD#18 s/p SAH, PPD#11 s/p coil embo of ruptured acomm aneurysm , treatment of vasospasm Plan: -off sedation and opening eyes spontaneously -BP parameters to 120-180 -Na 143 (goal now 135-155), can check sodium BID -continue hydration with total fluids 150cc/hr -ICPs low It is open 5 and functioning well. Raise to 10 today -extubate today if tolerated per crit care -Cdiff treatment per medicine -PT/OT/speech once extubated -Call NS with any changes 02/13/17 06:24 02/13/17 06:26 02/13/17 06:28 02/13/17 06:28 Subjective: opens eyes spontaneously and nods answers to questions Objective: Vital Signs Temp Pulse Resp BP Pulse Ox 37.9 C 99 24 H 141/88 H 100 02/13/17 06:00 02/13/17 06:00 02/13/17 06:00 02/13/17 06:00 02/13/17 06:00 Microbiology 02/06/17 18:00 Gram Stain - Final Csf From Shunt Laboratory Results 02/11/17 04:10 02/12/17 02/13/17 02/14/17 05:59 05:59 05:59 Intake Total 4422 4044 20 Output Total 6610 3709 15 Balance 152 335 5 intubated, not sedated nods appropriately to questions follows commands weakly with RUE, spontaneous movement RLE flicker movement only with LUE/LLE - Pending Discharge Pending Discharge Within 24 Hours: No Pending Discharge Within 48 Hours: No ICD10 Worksheet Patient Problems: Problems Problem Status Onset Aneurysm of anterior communicating artery Acute C. difficile diarrhea Acute ~02/12/17 Subarachnoid hemorrhage Acute
[2017-02-13 06:41] LABS: ANION GAP 13 mEq/L (8-16); CALCIUM 9.9 mg/dL (8.5-10.4); CARBON DIOXIDE 27 mEq/l (22-31); CHLORIDE 104 mEq/L (97-110); CREATININE 0.4 mg/dL (0.6-1.0); GLOMERULAR FILTRATION RATE > 60; GLUCOSE 121 mg/dL (70-100); POTASSIUM 4.1 mEq/L (3.5-5.2); SODIUM 144 mEq/L (134-144)
[2017-02-13] MEDS: levETIRAcetam 500 MG/5 ML UDCUP TUBE SCH ×2 (08:17→20:01)
[2017-02-13] MEDS: CHLORHEXIDINE GLUCONATE 15 ML UDL PO SCH ×2 (08:17→20:00)
[2017-02-13] MEDS: AZITHROMYCIN IV 500 MG in NS 250 ML IV SCH (08:18)
[2017-02-13] MEDS: BACITRACIN OINTMENT 1 PACKET TP SCH ×2 (08:18→20:00)
[2017-02-13] MEDS: FAMOTIDINE 20 MG TAB TUBE SCH ×2 (08:18→20:00)
[2017-02-13] MEDS: SENNOSIDES 17.6 MG/10 ML UDL TUBE SCH ×2 (08:19→19:30)
[2017-02-13 11:03] LABS: BASE EXCESS 1.7 mEq/L (-2.5-2.5); BICARBONATE 25 mEq/L (22-26); MEASURED OXYGEN SATURATION 99 % (92-95); PCO2 39 mmHg (34-38); PO2 137 mmHg (65-75); TCO2 27 mEq/L (23-27)
[2017-02-13 11:04] LABS: CPAP YES; END TIDAL CO2 33; PATIENT RATE 20; PRESSURE SUPPORT 7
--- NOTE | 2017-02-13 13:04 | HOSPPROG ---
Hospitalist Progress Note Assessment/Plan: 46 yo F w probable alcoholism here w SAH 2/2 aneurysm rupture c diff: start po vanc minimal diarrhea Acute subarachnoid hemorrhage due to JAYANT aneurysm s/p coiling --> vasospasm/CVA -s/p intrathecal milrinone TID (stopped 02/09) -keppra for seizure prevention -Nimodipine for vasospasm -IV norepi gtt - goal SBP 140-180 -consider add vasopressin to decrease pressor needs -Adding volume/fluids: Goal to keep volume up. NS increased to 150ml/hr today -Albumin PRN. Given this morning. -3% saline has been stopped. Na 147 Fever - bronch cx growing H flu - presumed PNA -azithromycin -Leukocytosis is improving. Acute respiratory failure - vent -wean off sedation as tolerated. -likely to proceed with trach/PEG soon if cannot get off Vent. Would likely be done early next week. Mucus plugging - bronch prn per pulmonary diarrhea: follow proph: scd's Subjective: case d/w dr guevara Objective: Vital Signs Temp Pulse Resp BP Pulse Ox 37.5 C 104 H 17 116/67 100 02/13/17 12:00 02/13/17 12:00 02/13/17 12:00 02/13/17 12:00 02/13/17 12:00 Microbiology 02/06/17 18:00 Gram Stain - Final Csf From Shunt CSF Culture - Final Laboratory Results 02/11/17 04:10 02/13/17 12:15 02/12/17 02/13/17 02/14/17 05:59 05:59 05:59 Intake Total 4422 4044 20 Output Total 4270 3709 39 Balance 152 335 -19 - Physical Exam Constitutional: other (per nursing was alert earlier. somnolent when I see her) Eyes: PERRL, anicteric sclera Ears, Nose, Mouth, Throat: moist mucous membranes, hearing normal Cardiovascular: no murmur, rub, or gallop, tachycardia Respiratory: no respiratory distress, no rales or rhonchi Gastrointestinal: normoactive bowel sounds, soft, non-tender abdomen Genitourinary: No sanchez in urethra Skin: warm, normal color Musculoskeletal: full muscle strength, no muscle tenderness Neurologic: No AAOx3 ICD10 Worksheet Patient Problems: Problems Problem Status Onset Aneurysm of anterior communicating artery Acute C. difficile diarrhea Acute ~02/12/17 Subarachnoid hemorrhage Acute
--- NOTE | 2017-02-13 13:49 | PDINTPN ---
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 Course has been complicated by PNA as well and underwent bronch at least twice, growing H. Flu. * JAYANT aneurysm with significant infarct- s/p coiling and ventriculostomy. CT stable so milrinone dc'd as was 3% saline on 02/10. Intermittent levophed * Acute Respiratory failure requiring mechanical ventilation 2/2 #1- complicated by presumed PNA as well with H flu ( s/p BAL). Weaned well and post wean ABG looked great so extubated today without difficulty. Remains intermittently somnolent * PNA as above. Hemophilus should be well covered by Azithromycin. Stable * ETOH- no signs of wd at this point, and not likely to manifest this long into hospitalization. * HTN- stable * FEN- TF at goal, good bowel sounds and BMs. Subjective: More lucid per staff Objective: Vital Signs Temp Pulse Resp BP Pulse Ox 37.5 C 109 H 18 113/60 100 02/13/17 13:00 02/13/17 13:00 02/13/17 13:00 02/13/17 13:00 02/13/17 13:00 Microbiology 02/06/17 18:00 Gram Stain - Final Csf From Shunt CSF Culture - Final Laboratory Results 02/11/17 04:10 02/13/17 12:15 02/12/17 02/13/17 02/14/17 05:59 05:59 05:59 Intake Total 4422 4044 470 Output Total 4270 3709 1193 Balance 152 335 -723 Physical Exam - Physical Exam General Appearance: no apparent distress EENT: PERRL/EOMI Neck: supple Respiratory: lungs clear, normal breath sounds, No respiratory distress Cardiac/Chest: regular rate, rhythm, No edema Abdomen: non-tender, soft, No distended Skin: normal color, warm/dry Lymphatic: no adenopathy Extremities: No pedal edema Neuro/Psych: cognition abnormalities ICD10 Worksheet Patient Problems: Problems Problem Status Onset Aneurysm of anterior communicating artery Acute C. difficile diarrhea Acute ~02/12/17 Subarachnoid hemorrhage Acute
[2017-02-13 18:36] LABS: POTASSIUM 3.6 mEq/L (3.5-5.2); SODIUM 142 mEq/L (134-144)
[2017-02-13] MEDS: POTASSIUM Cl (KCl) 50 ML IV SCH ×3 (20:00→22:03)
[2017-02-14] MEDS: ACETAMINOPHEN 650 MG/20.3 ML UDCUP TUBE PRN ×2 (00:12→17:33)
[2017-02-14] MEDS: niMODipine 33.333 MG/ML UDL TUBE SCH ×12 (00:13→22:12)
[2017-02-14] MEDS: NS 1,000 ML IV SCH ×2 (02:15→13:37)
[2017-02-14] MEDS: VANCOMYCIN 125 MG/2.5 ML UDL PO SCH ×4 (05:37→20:09)
[2017-02-14 05:45] LABS: ANION GAP 10 mEq/L (8-16); CALCIUM 9.7 mg/dL (8.5-10.4); CARBON DIOXIDE 26 mEq/l (22-31); CHLORIDE 106 mEq/L (97-110); CREATININE 0.5 mg/dL (0.6-1.0); GLOMERULAR FILTRATION RATE > 60; GLUCOSE 126 mg/dL (70-100); POTASSIUM 4.3 mEq/L (3.5-5.2); SODIUM 142 mEq/L (134-144)
--- NOTE | 2017-02-14 07:10 | SOAPPROG ---
SOAP Progress Note Assessment/Plan: Assessment: 46F PBD#19 s/p SAH, PPD#12 s/p coil embo of ruptured acomm aneurysm , treatment of vasospasm Plan: -off sedation and opening eyes spontaneously, extubated yesterday, answers questions appropriately -BP parameters to 100-180 -Na 142 (goal now 135-155), can check sodium BID -continue hydration with total fluids 150cc/hr -EVD to 15 today, CSF output 119 at 10, ICP<10 -Cdiff treatment per medicine -PT/OT/speech once extubated -Call NS with any changes 02/14/17 07:11 Subjective: answering questions today, remains weak Objective: Vital Signs Temp Pulse Resp BP Pulse Ox 37.7 C 100 22 H 134/80 H 99 02/14/17 06:00 02/14/17 06:00 02/14/17 06:00 02/14/17 06:00 02/14/17 06:00 Microbiology 02/06/17 18:00 Gram Stain - Final Csf From Shunt CSF Culture - Final Laboratory Results 02/11/17 04:10 02/14/17 05:10 02/13/17 02/14/17 02/15/17 05:59 05:59 05:59 Intake Total 4044 4054 Output Total 3709 3669 2 Balance 335 385 -2 awake/alert, answers questions appropriately remains weak L>R. Able to follow commands with RUE, no movement today LUE/LLE/ RLE wounds c/d/i - Pending Discharge Pending Discharge Within 24 Hours: No Pending Discharge Within 48 Hours: No ICD10 Worksheet Patient Problems: Problems Problem Status Onset Aneurysm of anterior communicating artery Acute C. difficile diarrhea Acute ~02/12/17 Subarachnoid hemorrhage Acute
--- NOTE | 2017-02-14 09:24 | PDINTPN ---
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 Course has been complicated by PNA as well and underwent bronch at least twice, growing H. Flu. * JAYANT aneurysm with significant infarct- s/p coiling and ventriculostomy. CT stable so milrinone dc'd as was 3% saline on 02/10. Intermittent levophed now off. PT/OT * Acute Respiratory failure requiring mechanical ventilation 07/09 #1- complicated by presumed PNA as well with H flu ( s/p BAL). Extubated 02/13 without difficulty and maintaining sats. Good cough. * PNA as above. Hemophilus should be well covered by Azithromycin. Started 02/08 and plan 7 days, so dc after 02/15 dose * ETOH- no signs of wd at this point, and not likely to manifest this long into hospitalization. * HTN- stable * FEN- TF at goal, good bowel sounds and BMs. * OK for SDU Subjective: non verbal Objective: Vital Signs Temp Pulse Resp BP Pulse Ox 37.9 C 109 H 21 H 136/77 H 98 02/14/17 09:00 02/14/17 09:00 02/14/17 09:00 02/14/17 09:00 02/14/17 09:00 Microbiology 02/06/17 18:00 Gram Stain - Final Csf From Shunt CSF Culture - Final Laboratory Results 02/11/17 04:10 02/14/17 05:10 02/13/17 02/14/17 02/15/17 05:59 05:59 05:59 Intake Total 4044 4054 Output Total 3709 3669 631 Balance 335 385 -631 Physical Exam - Physical Exam General Appearance: alert, no apparent distress, other (non verbal but awake) EENT: PERRL/EOMI Neck: supple Respiratory: lungs clear, normal breath sounds, No respiratory distress Cardiac/Chest: regular rate, rhythm, No edema Abdomen: non-tender, soft, No distended Skin: normal color, warm/dry Lymphatic: no adenopathy Extremities: No pedal edema Neuro/Psych: alert, cognition abnormalities ICD10 Worksheet Patient Problems: Problems Problem Status Onset Aneurysm of anterior communicating artery Acute C. difficile diarrhea Acute ~02/12/17 Subarachnoid hemorrhage Acute
[2017-02-14] MEDS: AZITHROMYCIN IV 500 MG in NS 250 ML IV SCH (09:34)
[2017-02-14] MEDS: levETIRAcetam 500 MG/5 ML UDCUP TUBE SCH ×2 (09:37→20:09)
[2017-02-14] MEDS: BACITRACIN OINTMENT 1 PACKET TP SCH ×2 (09:39→20:09)
[2017-02-14] MEDS: CHLORHEXIDINE GLUCONATE 15 ML UDL PO SCH ×2 (09:40→20:09)
[2017-02-14] MEDS: SENNOSIDES 17.6 MG/10 ML UDL TUBE SCH ×2 (09:40→19:44)
[2017-02-14] MEDS: FAMOTIDINE 20 MG TAB TUBE SCH ×2 (09:40→20:09)
--- NOTE | 2017-02-14 15:14 | HOSPPROG ---
Hospitalist Progress Note Assessment/Plan: 46 yo F w probable alcoholism here w SAH 2/2 aneurysm rupture c diff: start po vanc minimal diarrhea Acute subarachnoid hemorrhage due to JAAYNT aneurysm s/p coiling --> vasospasm/CVA -s/p intrathecal milrinone TID (stopped 02/09) -keppra for seizure prevention -Nimodipine for vasospasm -IV norepi gtt - goal SBP 140-180 -consider add vasopressin to decrease pressor needs -Adding volume/fluids: Goal to keep volume up. NS increased to 150ml/hr today -Albumin PRN. Given this morning. -3% saline has been stopped. Na 147 Fever - bronch cx growing H flu - presumed PNA -s/p 6 days azithromycin -Leukocytosis is improving. Acute respiratory failure - vent -wean off sedation as tolerated. -likely to proceed with trach/PEG soon if cannot get off Vent. Would likely be done early next week. Mucus plugging - bronch prn per pulmonary diarrhea: follow proph: scd's Subjective: case d/w dr guevara. extubated Objective: Vital Signs Temp Pulse Resp BP Pulse Ox 38 C 125 H 27 H 112/65 94 02/14/17 12:00 02/14/17 14:00 02/14/17 14:00 02/14/17 14:00 02/14/17 14:00 Microbiology 02/06/17 18:00 Gram Stain - Final Csf From Shunt CSF Culture - Final Laboratory Results 02/11/17 04:10 02/14/17 05:10 02/13/17 02/14/17 02/15/17 05:59 05:59 05:59 Intake Total 4044 4054 Output Total 3709 3669 856 Balance 335 385 -856 - Physical Exam Constitutional: no apparent distress, appears nourished Eyes: PERRL, anicteric sclera Ears, Nose, Mouth, Throat: moist mucous membranes, hearing normal Cardiovascular: regular rate and rhythym, no murmur, rub, or gallop Respiratory: no respiratory distress, no rales or rhonchi Gastrointestinal: normoactive bowel sounds, soft, non-tender abdomen Genitourinary: sanchez in urethra Skin: warm, normal color Musculoskeletal: full muscle strength, no muscle tenderness Neurologic: No AAOx3, No sensation intact bilaterally Psychiatric: No interacting appropriately, No not anxious Lymph, Heme, Immunologic: no cervical LAD ICD10 Worksheet Patient Problems: Problems Problem Status Onset Aneurysm of anterior communicating artery Acute C. difficile diarrhea Acute ~02/12/17 Subarachnoid hemorrhage Acute
--- NOTE | 2017-02-14 17:07 | ASMTCMCOM ---
CM Note CM Note Notes: Spoke with patient's who says he is doing ok. He is more concerned about patient's mother. She is supposed to visit sometime today. Will offer emotional support if she returns this afternoon as well as scheduling of family meeting if she is interested. CM will follow. Date Signed: 02/12/2017 04:25 PM Electronically Signed By:Silvana Mccarthy
--- NOTE | 2017-02-14 17:09 | ASMTCMCOM ---
CM Note CM Note Notes: ICU Rounds today, RN and MD's report that patient seems to be "coming around". Swallow eval to be ordered as well as therapy evaluations. Date Signed: 02/14/2017 04:13 PM Electronically Signed By:Claudia Acevedo
[2017-02-14 18:16] LABS: POTASSIUM 4.3 mEq/L (3.5-5.2)
[2017-02-15] MEDS: ACETAMINOPHEN 650 MG/20.3 ML UDCUP TUBE PRN ×3 (00:04→15:56)
[2017-02-15] MEDS: niMODipine 33.333 MG/ML UDL TUBE SCH ×9 (00:04→20:43)
[2017-02-15] MEDS: NS 1,000 ML IV SCH (00:05)
[2017-02-15] MEDS: VANCOMYCIN 125 MG/2.5 ML UDL PO SCH ×4 (05:52→20:44)
[2017-02-15] MEDS: CHLORHEXIDINE GLUCONATE 15 ML UDL PO SCH ×2 (07:50→20:44)
[2017-02-15] MEDS: FAMOTIDINE 20 MG TAB TUBE SCH ×2 (07:50→20:44)
[2017-02-15] MEDS: levETIRAcetam 500 MG/5 ML UDCUP TUBE SCH ×2 (07:50→20:44)
[2017-02-15] MEDS: BACITRACIN OINTMENT 1 PACKET TP SCH ×2 (07:50→20:44)
[2017-02-15] MEDS: SENNOSIDES 17.6 MG/10 ML UDL TUBE SCH ×2 (08:32→20:44)
--- NOTE | 2017-02-15 08:57 | HOSPPROG ---
Hospitalist Progress Note Assessment/Plan: #Acute SAH: 2/2 aneurysm. s/p coiling EVD to 20 today -Na at goal, BP stable -cont Keppra nimodipine #H flu PNA: 6 days azithro #C diff: cont vanc #Leukocytosis: improved #Deconditioning: inpt rehab consulted #DVT ppx: SCDs #Disp: warrants inpt admission. Cont neuro check, EVD Subjective: no acute events. Nods head no to pain Objective: Vital Signs Temp Pulse Resp BP Pulse Ox 37.7 C 125 H 24 H 118/79 96 02/15/17 08:00 02/15/17 08:00 02/15/17 08:00 02/15/17 08:00 02/15/17 08:00 Laboratory Results 02/11/17 04:10 02/14/17 17:50 02/14/17 02/15/17 02/16/17 05:59 05:59 05:59 Intake Total 4054 4810 Output Total 3669 4137 5 Balance 385 673 -5 - Physical Exam Constitutional: no apparent distress Ears, Nose, Mouth, Throat: dry mucous membranes Cardiovascular: regular rate and rhythym Respiratory: no respiratory distress Gastrointestinal: normoactive bowel sounds Genitourinary: sanchez in urethra Skin: warm Musculoskeletal: other (thumbs up with right hand, minimal hand squeeze. No movement left side or right leg) ICD10 Worksheet Patient Problems: Problems Problem Status Onset Aneurysm of anterior communicating artery Acute C. difficile diarrhea Acute ~02/12/17 Subarachnoid hemorrhage Acute
--- NOTE | 2017-02-15 10:24 | NEUSURGPN ---
Assessment/Plan: Assessment: 46F PBD#20 s/p SAH, PPD#13 s/p coil embo of ruptured acomm aneurysm , treatment of vasospasm Plan: -off sedation and opening eyes to command, answers questions appropriately -BP parameters to 100-180 -Na 142 this am(goal now 135-155), can check sodium BID -Can start to bring down total fluids - now on 100/cc of maintenance fluids- -EVD to 20 today, ICP max 17 once at 5am and 3am possibly during activity- otherwise remaining at 9-11- if does not tolerate, will put back down to 15 -Cdiff treatment per medicine -PT/OT/speech -Discussed with Dr. Morel -Call NS with any changes Subjective: Nods appropriately to questions, follows commands. Per RN no acute events overnight. Objective: awake/alert, answers questions appropriately, opens eyes to command PERRL, EOMI Tongue protrusion midline, no facial droop remains weak L>R. Able to follow commands with RUE, no movement today LUE/LLE/ RLE wounds c/d/i Catheter Insertion Date: 02/06/17 - Physician Discussed Patient with : Maria [facility] Neurosurgery Physical Exam - Vitals, I&O, Labs I and O 02/14/17 02/15/17 02/16/17 05:59 05:59 05:59 Intake Total 4054 4810 1144 Output Total 3669 4137 5 Balance 760 987 3990 Weight 67.7 kg 67 kg Intake: IV Intake (ml) 405 IV Infused (ml) 2218 2500 285 Norepinephrine Bitartrate 56 16 mg In Ns 250 ml @ Per Protocol IV CONT MILVIA Rx# :[id number] Ns 1,000 ml @ 150 mls/hr 2162 2500 285 IV CONT MILVIA Rx#: [id number] Tube Feeding (ml) 961 1695 709 Tube Flush (ml) 470 615 150 Output: Urine (ml) 3550 4075 Catheter 3550 4075 CSF Drainage Amount 119 62 5 Right Ventriculostomy 119 62 5 Other: Output Comment Catheter 4 hours output 4 hours output Number of Stools Catheter 1 1 Incontinence 1 Vital Signs Temp Pulse Resp BP Pulse Ox 37.7 C 119 H 22 H 128/71 H 94 02/15/17 09:00 02/15/17 09:00 02/15/17 09:00 02/15/17 09:00 02/15/17 09:00 Laboratory Results 02/11/17 04:10 02/14/17 17:50 ICD10 Worksheet Patient Problems: Problems Problem Status Onset Aneurysm of anterior communicating artery Acute C. difficile diarrhea Acute ~02/12/17 Subarachnoid hemorrhage Acute
[2017-02-15] MEDS ORDERED: NOREPINEPHRINE BITARTRATE 16 MG in NS 250 ML IV SCH (11:30)
[2017-02-16] MEDS: niMODipine 33.333 MG/ML UDL TUBE SCH ×6 (00:51→21:02)
[2017-02-16] MEDS: VANCOMYCIN 125 MG/2.5 ML UDL PO SCH ×4 (06:44→21:12)
[2017-02-16] MEDS: levETIRAcetam 500 MG/5 ML UDCUP TUBE SCH ×2 (08:42→21:12)
[2017-02-16] MEDS: CHLORHEXIDINE GLUCONATE 15 ML UDL PO SCH ×2 (08:42→21:03)
[2017-02-16] MEDS: FAMOTIDINE 20 MG TAB TUBE SCH ×2 (08:43→21:13)
[2017-02-16] MEDS: BACITRACIN OINTMENT 1 PACKET TP SCH ×2 (08:43→21:13)
[2017-02-16] MEDS: SENNOSIDES 17.6 MG/10 ML UDL TUBE SCH ×2 (08:44→21:03)
--- NOTE | 2017-02-16 10:08 | SOAPPROG ---
SOAP Progress Note Assessment/Plan: Assessment/Plan : 46 yo F s/p coiling of acomm aneursym -off sedation, follows commands with right hand -EVD at 20 with minimal drainage overnight. Will clamp today. -withdraws bilat LE to pain and RUE to pain -BP parameters to 100-180 -total fluids are 150ml including 50ml of tube feeds -Call NS with any changes -D/W Dr. Morel 02/16/17 10:12 Subjective: eyes closed, opens them when she coughs no Overnight issues per RN. only 2ml out of ventric overnight Objective: Vital Signs Temp Pulse Resp BP Pulse Ox 37.7 C 113 H 25 H 124/78 H 94 02/16/17 08:00 02/16/17 09:00 02/16/17 09:00 02/16/17 09:00 02/16/17 09:00 Laboratory Results 02/11/17 04:10 02/14/17 17:50 02/15/17 02/16/17 02/17/17 05:59 05:59 05:59 Intake Total 4810 3523 Output Total 4137 3510 0 Balance 673 13 0 Neuro: Squeezed hand on right to command withdraws all extremities to painful stim PERRLA EVD: 2ml overnight while open at 20 functioning well ICD10 Worksheet Patient Problems: Problems Problem Status Onset Aneurysm of anterior communicating artery Acute C. difficile diarrhea Acute ~02/12/17 Subarachnoid hemorrhage Acute
--- NOTE | 2017-02-16 17:26 | HOSPPROG ---
Hospitalist Progress Note Assessment/Plan: #Acute SAH: 2/2 aneurysm. s/p coiling EVD with min output. Clamp today, repeat CTH in morning -Na at goal, BP stable -cont Keppra nimodipine -follows simple commands, some movement right hand #H flu PNA: 6 days azithro #C diff: cont vanc #Leukocytosis: improved #Deconditioning: inpt rehab consulted #DVT ppx: SCDs #Disp: warrants inpt admission. Cont neuro check, EVD. Placement to SNF vs. LTC ? Subjective: no acute events Objective: Vital Signs Temp Pulse Resp BP Pulse Ox 37.7 C 108 H 26 H 126/78 H 94 02/16/17 16:00 02/16/17 16:00 02/16/17 16:00 02/16/17 16:00 02/16/17 16:00 Laboratory Results 02/11/17 04:10 02/14/17 17:50 02/15/17 02/16/17 02/17/17 05:59 05:59 05:59 Intake Total 4810 3523 180 Output Total 4137 3510 1550 Balance 673 13 -1370 - Physical Exam Constitutional: no apparent distress Eyes: PERRL Ears, Nose, Mouth, Throat: poor dentition, dry mucous membranes Cardiovascular: regular rate and rhythym, no murmur, rub, or gallop Respiratory: no respiratory distress Gastrointestinal: normoactive bowel sounds Genitourinary: no bladder fullness Skin: warm Musculoskeletal: other (min movement right hand) Neurologic: CN II-XII Intact (will stick out tongue, close eyes) Psychiatric: encephalopathic ICD10 Worksheet Patient Problems: Problems Problem Status Onset Aneurysm of anterior communicating artery Acute C. difficile diarrhea Acute ~02/12/17 Subarachnoid hemorrhage Acute
[2017-02-16 17:51] LABS: POTASSIUM 4.6 mEq/L (3.5-5.2)
[2017-02-16] MEDS: NS 1,000 ML IV SCH (21:03)
[2017-02-17] MEDS: niMODipine 33.333 MG/ML UDL TUBE SCH ×6 (00:15→20:18)
[2017-02-17 05:22] LABS: ANION GAP 15 mEq/L (8-16); CALCIUM 10.2 mg/dL (8.5-10.4); CARBON DIOXIDE 24 mEq/l (22-31); CHLORIDE 102 mEq/L (97-110); CREATININE 0.5 mg/dL (0.6-1.0); GLOMERULAR FILTRATION RATE > 60; GLUCOSE 112 mg/dL (70-100); POTASSIUM 4.5 mEq/L (3.5-5.2); SODIUM 141 mEq/L (134-144)
[2017-02-17] MEDS: VANCOMYCIN 125 MG/2.5 ML UDL PO SCH ×4 (05:52→21:15)
--- NOTE | 2017-02-17 07:11 | SOAPPROG ---
SOAP Progress Note Assessment/Plan: Assessment/Plan : 46 yo F s/p coiling of acomm aneursym -off sedation, grasps spontaneously with right hand -EVD clamped overnight without issues but CTH this AM demonstrates enlarged ventricles. Will open EVD up again at [address] Morel -withdraws bilat LE to pain and RUE to pain -BP parameters to 100-180 -total fluids are 100ml including 50ml of tube feeds -Call NS with any changes -D/W Dr. Morel 02/17/17 07:05 Subjective: eyes closed, has a slightly wet cough. No overnight issues with Ventric clamped - per RN Objective: Vital Signs Temp Pulse Resp BP Pulse Ox 37.7 C 112 H 24 H 126/76 H 96 02/17/17 06:00 02/17/17 06:00 02/17/17 06:00 02/17/17 06:00 02/17/17 06:00 Laboratory Results 02/11/17 04:10 02/17/17 04:40 02/16/17 02/17/17 02/18/17 05:59 05:59 05:59 Intake Total 3523 2885 Output Total 3510 2800 Balance 13 85 Neuro: PERRLA non verbal grasps right hand spont and will occasionally follow commands with right hand Ventric: was clamped overnight, will open back up at 5 due to hydrocephalus noted on today's CTHead. CTH 02/17/17 compared to 02/09/17 shows interval increase in size of ventricles likely consistent with developing hydrocephalus ICD10 Worksheet Patient Problems: Problems Problem Status Onset Aneurysm of anterior communicating artery Acute C. difficile diarrhea Acute ~02/12/17 Subarachnoid hemorrhage Acute
--- NOTE | 2017-02-17 08:47 | SOAPPROG ---
SOAP Progress Note Assessment/Plan: Assessment/Plan : 46 yo F s/p coiling of acomm aneursym -off sedation, grasps spontaneously with right hand but not FC -EVD clamped overnight without issues but CTH this AM demonstrates enlarged ventricles. Will open EVD up again at [address] Morel is considering VPS . -withdraws bilat LE to pain and RUE to pain -BP parameters to 100-180 -total fluids are 100ml including 50ml of tube feeds -Call NS with any changes -D/W Dr. Morel 02/17/17 07:05 02/17/17 08:46 Subjective: Eyes closed, opens them slightly when she coughs. No changes overnight per RN. Ventric has been clamped since yesterday morning. Objective: Vital Signs Temp Pulse Resp BP Pulse Ox 38.0 C 95 17 144/82 H 90 L 02/17/17 08:00 02/17/17 08:00 02/17/17 08:00 02/17/17 08:00 02/17/17 08:00 Laboratory Results 02/11/17 04:10 02/17/17 04:40 02/16/17 02/17/17 02/18/17 05:59 05:59 05:59 Intake Total 3523 2885 Output Total 3510 2800 23 Balance 13 85 -23 Neuro: Opens eyes slightly when she coughs not following commands this AM, but since ventric has been opened back up to 5 she is following commads per RN with right hand Ventric: clamped ICD10 Worksheet Patient Problems: Problems Problem Status Onset Aneurysm of anterior communicating artery Acute C. difficile diarrhea Acute ~02/12/17 Subarachnoid hemorrhage Acute
[2017-02-17] MEDS: SENNOSIDES 17.6 MG/10 ML UDL TUBE SCH ×2 (09:01→21:16)
[2017-02-17] MEDS: BACITRACIN OINTMENT 1 PACKET TP SCH ×2 (09:20→21:15)
[2017-02-17] MEDS: levETIRAcetam 500 MG/5 ML UDCUP TUBE SCH ×2 (09:20→21:15)
[2017-02-17] MEDS: ACETAMINOPHEN 650 MG/20.3 ML UDCUP TUBE PRN ×2 (09:21→20:17)
[2017-02-17] MEDS: FAMOTIDINE 20 MG TAB TUBE SCH ×2 (09:21→21:15)
[2017-02-17] MEDS: CHLORHEXIDINE GLUCONATE 15 ML UDL PO SCH ×2 (09:21→21:15)
[2017-02-17 09:57] LABS: COLOR YELLOW; LEUKOCYTE ESTERASE,URINE 1+ (NEGATIVE); NITRITE,URINE POSITIVE (NEGATIVE)
[2017-02-17 10:10] LABS: AMORPHOUS PRESENT /hpf (NONE-1+); BACTERIA TRACE /hpf (NONE SEEN); MUCUS TRACE /lpf (NONE-1+); WBC,URINE 15-25 /hpf (0-3)
--- NOTE | 2017-02-17 12:27 | ASMTCMCOM ---
CM Note CM Note Notes: PT/OT are still uncertain about SNF or LTAC. CM will follow. Date Signed: 02/17/2017 12:27 PM Electronically Signed By:Silvana Mccarthy LCSW
[2017-02-17] MEDS: NS 1,000 ML IV SCH (15:14)
--- NOTE | 2017-02-17 20:45 | HOSPPROG ---
Hospitalist Progress Note Assessment/Plan: #Acute SAH: 2/2 aneurysm. s/p coiling -increased somnolence today; CTH showed enlarged ventricles. EVD unclamped at 5. -Na at goal, BP stable -cont Keppra nimodipine -follows simple commands, some movement right hand #Fever: CXR neg, UA with WBCs. Cultures pending. Will dose IV CTX. #H flu PNA: 6 days azithro #C diff: cont vanc #Leukocytosis: improved #Deconditioning: inpt rehab consulted #DVT ppx: SCDs #Disp: warrants inpt admission. Cont neuro check, EVD. Placement to SNF vs. LTC ? Critical care time spent: 35 min bedside, reviewing labs, d/w Dr. Corss and ICU team Subjective: fevered this morning. Objective: Vital Signs Temp Pulse Resp BP Pulse Ox 38.2 C 120 H 27 H 127/91 H 98 02/17/17 20:00 02/17/17 20:00 02/17/17 20:00 02/17/17 20:00 02/17/17 20:00 Laboratory Results 02/11/17 04:10 02/17/17 04:40 02/16/17 02/17/17 02/18/17 05:59 05:59 05:59 Intake Total 3523 2885 1186 Output Total 3510 2800 875 Balance 13 85 311 - Physical Exam Constitutional: other (somnolent) Eyes: PERRL Ears, Nose, Mouth, Throat: moist mucous membranes Cardiovascular: regular rate and rhythym Respiratory: no respiratory distress Gastrointestinal: normoactive bowel sounds Genitourinary: sanchez in urethra Skin: warm, other (no rash) Musculoskeletal: other (min bartacker with right hand) Neurologic: other (opens eyes, follows some simple commands. RUE PICC without signs infection) Psychiatric: encephalopathic ICD10 Worksheet Patient Problems: Problems Problem Status Onset C. difficile diarrhea Acute ~02/12/17 Subarachnoid hemorrhage Acute Aneurysm of anterior communicating artery Acute
[2017-02-17] MEDS: LORazepam 2 MG/ML INJ IVP PRN (22:51)
[2017-02-18] MEDS: NS 1,000 ML IV SCH ×2 (00:13→15:07)
[2017-02-18] MEDS: niMODipine 33.333 MG/ML UDL TUBE SCH ×6 (00:40→20:23)
[2017-02-18] MEDS: VANCOMYCIN 125 MG/2.5 ML UDL PO SCH ×4 (04:59→20:26)
[2017-02-18 05:28] LABS: POTASSIUM 4.3 mEq/L (3.5-5.2)
[2017-02-18] MEDS: CHLORHEXIDINE GLUCONATE 15 ML UDL PO SCH ×2 (08:02→20:26)
[2017-02-18] MEDS: levETIRAcetam 500 MG/5 ML UDCUP TUBE SCH ×2 (08:02→20:26)
[2017-02-18] MEDS: BACITRACIN OINTMENT 1 PACKET TP SCH ×2 (08:02→20:26)
[2017-02-18] MEDS: SENNOSIDES 17.6 MG/10 ML UDL TUBE SCH ×2 (08:03→21:46)
[2017-02-18] MEDS: FAMOTIDINE 20 MG TAB TUBE SCH ×2 (08:03→20:26)
--- NOTE | 2017-02-18 10:39 | NEUSURGPN ---
Assessment/Plan: Assessment/Plan : 46 yo F s/p coiling of acomm aneursym -off sedation, grasps right hand to command and opens eyes to stimulation this morning and will track eyes to command but very somnolent -EVD clamped yesterday but CTH yesterday showed hydrocephalus thus plan for CERTIFIED INDUSTRIAL HYGIENIST shunt later today with Dr. Morel. -Will call later today for consent prior to CERTIFIED INDUSTRIAL HYGIENIST shunt -No Heparin or lovenox for last 12 hours- ok for CERTIFIED INDUSTRIAL HYGIENIST shunt -BP parameters to 100-180 -total fluids are 100ml including 50ml of tube feeds -Call NS with any changes -Discussed with and seen by Dr. Morel as well this am Subjective: Patient grasps right hand to command and opens eyes to painful stimuli this morning. Per RN was more awake during oral care this morning. Emory not present for consents this morning, will call later today for consent for CERTIFIED INDUSTRIAL HYGIENIST shunt. Objective: VSS, eyes closed/somnolent unless being stimulated PERRL, Will track/EOMI briefly before closing eyes Grasps right hand tightly to command, no movement of LUE No movement this am of BLE Ventric site clean Catheter Insertion Date: 02/06/17 - Physician Discussed Patient with : Maria Teresa Patient Seen by : Maria Teresa Neurosurgery Physical Exam - Vitals, I&O, Labs I and O 02/17/17 02/18/17 02/19/17 05:59 05:59 05:59 Intake Total 2885 1541 Output Total 2800 1586 56 Balance 85 -45 -56 Weight 68.8 kg 63.3 kg Intake: IV Infused (ml) 1355 615 Ns 1,000 ml @ 50 mls/hr 1355 615 IV CONT MILVIA Rx#: [id number] Tube Feeding (ml) 631 726 Tube Flush (ml) 899 200 Output: Urine (ml) 2800 1340 Catheter 2800 1340 CSF Drainage Amount 0 246 56 Right Ventriculostomy 0 246 56 Other: Number of Stools Catheter 1 1 Incontinence 1 Vital Signs Temp Pulse Resp BP Pulse Ox 37.2 C 107 H 20 117/60 100 02/18/17 10:00 02/18/17 10:00 02/18/17 10:00 02/18/17 10:00 02/18/17 10:00 Laboratory Results 02/11/17 04:10 02/18/17 05:05 ICD10 Worksheet Patient Problems: Problems Problem Status Onset Aneurysm of anterior communicating artery Acute C. difficile diarrhea Acute ~02/12/17 Subarachnoid hemorrhage Acute
--- NOTE | 2017-02-18 14:03 | HOSPPROG ---
Hospitalist Progress Note Assessment/Plan: #Acute SAH: 2/2 aneurysm. s/p coiling -increased somnolence today; CTH showed enlarged ventricles. EVD unclamped at 5. -plan on PULP BEATER shunt -cont Keppra nimodipine -follows simple commands, some movement right hand #Fever: CXR neg, UA with WBCs. <50K gram neg lyndsey on culture. Stop CTX. #H flu PNA: 6 days azithro #C diff: cont vanc #Leukocytosis: improved on abx. Urine/blood cxs pending #Deconditioning: inpt rehab consulted #DVT ppx: SCDs #Disp: warrants inpt admission. Cont neuro check, EVD. Placement to SNF vs. LTC ? Critical care time spent: 25 min bedside, reviewing labs, d/w Dr. Cross and ICU team Subjective: intermittent movement of right hand Objective: Vital Signs Temp Pulse Resp BP Pulse Ox 37.4 C 111 H 20 103/55 L 100 02/18/17 13:00 02/18/17 13:00 02/18/17 13:00 02/18/17 13:00 02/18/17 13:00 Laboratory Results 02/11/17 04:10 02/18/17 05:05 02/17/17 02/18/17 02/19/17 05:59 05:59 05:59 Intake Total 2885 1541 Output Total 2800 1586 93 Balance 85 -45 -93 - Physical Exam Constitutional: no apparent distress Eyes: PERRL Ears, Nose, Mouth, Throat: moist mucous membranes Cardiovascular: regular rate and rhythym, no murmur, rub, or gallop Respiratory: no respiratory distress, no rales or rhonchi Gastrointestinal: normoactive bowel sounds Genitourinary: no bladder fullness, sanchez in urethra Skin: warm Musculoskeletal: other (min movement of right hand) Neurologic: other (will open eyes to voice) Psychiatric: encephalopathic ICD10 Worksheet Patient Problems: Problems Problem Status Onset Aneurysm of anterior communicating artery Acute C. difficile diarrhea Acute ~02/12/17 Subarachnoid hemorrhage Acute
[2017-02-18] MEDS ORDERED: CHLORHEXIDINE GLUC HIBICLENS 118 ML BTL TP ONE (15:35)
[2017-02-18] MEDS ORDERED: THROMBIN (BOVINE) 5,000 UNIT VIAL TP ONE (15:35)
[2017-02-18] MEDS ORDERED: BUPIVACAINE 0.25% 30 ML SDV ONE (15:35)
[2017-02-18] MEDS ORDERED: BACITRACIN 50,000 UNITS/10 ML SYR IRR ONE (15:36)
--- NOTE | 2017-02-18 15:47 | PDANEPAE ---
ANE History of Present Illness 46 year old female s/p SAH (s/p coiling of A. Comm Aneurysm) now to OR for surgical placement of TRAP SETTER shunt. Patient with EVD set a 5cm; draining between 10 and 50ml/hr. Patient is critically ill requiring care in ICU. Patient with H. Flu PNA, C.Diffe. Very somnolent during bedside interview with anesthesia. ANE Past Medical History - Cardiovascular History Hx Hypertension: Yes Hx Arrhythmias: No - Pulmonary History Hx Oxygen in Use at Home: No Hx Sleep Apnea: No Sleep Apnea Screening Result - Last Documented: Negative - Endocrine History Hx Diabetes: No Hypothyroid: No Hyperthyroid: No Obesity: no - Renal History Hx Renal Disorders: No - Neurological & Psychiatric Hx Hx Neurological and Psychiatric Disorders: Yes Neurological / Psychiatric History Comment: alcoholic - Other Health History Other Health History: chronic pain - Chronic Pain History Chronic Pain: Yes ANE Review of Systems Review of Systems: - Exercise capacity Exercise capacity: limited by disability - Systems Constitutional: Reports: malaise ANE Patient History - Allergies Allergies/Adverse Reactions: No Known Allergies Allergy (Unverified 02/02/17 09:31) - Home Medications Home medications: home medication list seen and reviewed Home Medications: Gabapentin [Neurontin 300 MG (*)] 300 mg PO BID 02/02/17 [Last Taken Unknown] Lisinopril [Zestril 10 mg (*)] 10 mg PO DAILY 02/02/17 [Last Taken Unknown] Naproxen [Naprosyn] 500 - 1,000 mg PO BID 02/02/17 [Last Taken 02/02/17 1000mg] oxyCODONE HCL/ACETAMINOPHEN [Percocet 10-325 mg Tablet] 1 each PO Q6HRS PRN [Last Taken Unknown] - NPO status NPO Status: no food or drink >8 hours NPO Since - Liquids (Date): 02/18/17 NPO Since - Liquids (Time): 00:00 NPO Since - Solids (Date): 02/18/17 NPO Since - Solids (Time): 00:00 - Anes Hx Anes Hx: no prior problems - Smoking Hx Smoking Status: Current every day smoker - Alcohol Use Alcohol Use: Heavy - Family Anes Hx Family Anes Hx: none ANE Labs/Vital Signs - Labs Result Diagrams: 02/11/17 04:10 02/18/17 05:05 - Vital Signs Blood Pressure: 103/64 Heart Rate: 88 Respiratory Rate: 73 O2 Sat (%): 100 Height: 162.56 cm Weight: 63.3 kg ANE Physical Exam - Airway Neck exam: FROM Mallampati Score: Class 2 Mouth exam: poor dentition - Pulmonary Pulmonary: no respiratory distress - Cardiovascular Cardiovascular: regular rate and rhythym - ASA Status ASA Status: IV ANE Anesthesia Plan Anesthesia Plan: general endotracheal anesthesia
[2017-02-18] MEDS ORDERED: PROPOFOL 200 MG/20 ML VIAL ONE (16:01)
[2017-02-18] MEDS ORDERED: fentaNYL 100 MCG/2 ML INJ ONE ×2 (16:01→17:31)
[2017-02-18] MEDS ORDERED: LIDOCAINE 2% 5 ML SDV ONE (16:03)
[2017-02-18] MEDS ORDERED: DEXAMETHASONE 4 MG/ML VIAL ONE (17:50)
[2017-02-18] MEDS ORDERED: ONDANSETRON 4 MG/2 ML VIAL ONE (17:50)
[2017-02-18] MEDS ORDERED: BACITRACIN ZINC 14.2 GM OINTTUBE TP ONE (18:06)
[2017-02-18] MEDS ORDERED: fentaNYL 100 MCG/2 ML INJ IVP PRN (18:34)
[2017-02-18] MEDS ORDERED: NALOXONE HCL 0.4 MG/ML INJ IVP PRN (18:34)
[2017-02-18] MEDS ORDERED: ONDANSETRON 4 MG/2 ML VIAL IVP PRN (18:34)
[2017-02-18] MEDS ORDERED: LR 500 ML IV PRN (18:34)
--- NOTE | 2017-02-18 18:36 | POSTANESTH ---
Post Anesthetic Evaluation Cardiovascular Status: Normal, Stable, Similar to Pre-Op Cond Respiratory Status: Normal, Stable, Similar to Pre-op Cond. Level of Consciousness/Mental Status: Moderately Sleepy (Similar to pre-op condition.) Pain Control: Adequate, Prn Tx Ordered Nausea/Vomiting Control: Adequate, Prn Tx Ordered Complications Possibly Related to Anesthesia: None Noted
[2017-02-18 19:15] LABS: POTASSIUM 4.2 mEq/L (3.5-5.2)
--- NOTE | 2017-02-18 19:34 | POSTOPPROG ---
Post Op Note Date of Operation: 02/18/17 Surgeon: Austin Morel Transfer Clerk: Alice Alexander Anesthesia: GET(General Endotracheal) Pre-op Diagnosis: Hydrocephalus Post-op Diagnosis: Same Procedure: Placement of right sided Ventriculoperitoneal shunt Inf/Abcess present in the surg proc area at time of surgery?: No Depth: Organ Space SOAP Progress Note Assessment/Plan: S: Unable to obtain. Patient still waking up from surgery. Extubated and VSS. O: VSS, NAD Extubated PERRL, no following commands currently withdraws to pain, weak team primary care physician to command on RUE incisions X3, 2 on head- c/d/i-baci, 1 on abdomen-dermabond Assessment/Plan : 46 yo F s/p coiling of acomm aneursym and sp placement of right sided THEATRE MANAGER shunt on 02/18. P: -Postop CT in am -Postop Shunt series in am -SBP continued 100-180 -Activity as tolerated -DVT prophy- TEDs, SCDs, may resume Heparin POD #[address] results 02/18/17 19:26 Objective: Vital Signs Temp Pulse Resp BP Pulse Ox 37.2 C 105 H 19 119/65 100 02/18/17 19:11 02/18/17 19:11 02/18/17 19:11 02/18/17 19:11 02/18/17 19:11 Laboratory Results 02/11/17 04:10 02/18/17 18:30 02/17/17 02/18/17 02/19/17 05:59 05:59 05:59 Intake Total 2885 1541 991 Output Total 2800 1586 893 Balance 85 -45 98
[2017-02-18] MEDS ORDERED: MAGNESIUM HYDROXIDE 30 ML UDCUP PO PRN (19:37)
[2017-02-18] MEDS: ACETAMINOPHEN 650 MG/20.3 ML UDCUP TUBE PRN (22:11)
[2017-02-19] MEDS: niMODipine 33.333 MG/ML UDL TUBE SCH ×6 (00:09→20:15)
[2017-02-19 05:14] LABS: HEMATOCRIT 34.5 % (38.0-47.0); HEMOGLOBIN 11.3 g/dL (12.6-16.3); MEAN CELL HEMOGLOBIN 33.7 pg (27.9-34.1); MEAN CELL HEMOGLOBIN CONCENTR. 32.8 g/dL (32.4-36.7); RED BLOOD CELL COUNT 3.35 10^6/uL (4.18-5.33); RED CELL DISTRIBUTION WIDTH 12.2 % (11.5-15.2)
[2017-02-19 05:38] LABS: ANION GAP 15 mEq/L (8-16); CALCIUM 9.4 mg/dL (8.5-10.4); CARBON DIOXIDE 24 mEq/l (22-31); CHLORIDE 104 mEq/L (97-110); CREATININE 0.5 mg/dL (0.6-1.0); GLOMERULAR FILTRATION RATE > 60; GLUCOSE 103 mg/dL (70-100); POTASSIUM 3.9 mEq/L (3.5-5.2); SODIUM 143 mEq/L (134-144)
[2017-02-19] MEDS: VANCOMYCIN 125 MG/2.5 ML UDL PO SCH ×4 (05:55→20:14)
--- NOTE | 2017-02-19 06:36 | SOAPPROG ---
SOAP Progress Note Assessment/Plan: Assessment: POD #1 sp Right VPS placement for hydrocephalus Previous clipping of Acomm Aneurysm More alert today Plan: CPM with PT/OT/ST Call with any neuro changes Dispo planning discussed with Dr. Morel Subjective: Patient's eyes are open. She is tracking and nods her head weakly but appropriately. She is mouthing answers to my questions Objective: Vital Signs Temp Pulse Resp BP Pulse Ox 37.4 C 82 20 109/66 97 02/19/17 06:00 02/19/17 06:00 02/19/17 06:00 02/19/17 06:00 02/19/17 06:00 Laboratory Results 02/19/17 04:59 02/19/17 04:59 02/18/17 02/19/17 02/20/17 05:59 05:59 05:59 Intake Total 1541 2182 Output Total 1586 2393 Balance -45 -211 CTH today shows improvement of ventricle size Shunt series shows patent tubing, but portion over chest is difficult to assess Scalp and abdominal incisions: CDI, no drainage Neuro PERRLA, follows commands with right hand trace movement of left thumb, but not to command withdraws toes on right foot to light stim. no movement left arm or left leg will mouth words to answer my question and nods her head appropriately ICD10 Worksheet Patient Problems: Problems Problem Status Onset Aneurysm of anterior communicating artery Acute C. difficile diarrhea Acute ~02/12/17 Subarachnoid hemorrhage Acute
[2017-02-19] MEDS: BACITRACIN OINTMENT 1 PACKET TP SCH ×2 (08:01→20:15)
[2017-02-19] MEDS: CHLORHEXIDINE GLUCONATE 15 ML UDL PO SCH ×2 (08:01→20:15)
[2017-02-19] MEDS ORDERED: MAGNESIUM HYDROXIDE 30 ML UDCUP TUBE PRN (08:30)
[2017-02-19] MEDS: FAMOTIDINE 20 MG TAB TUBE SCH ×2 (08:51→20:15)
[2017-02-19] MEDS: levETIRAcetam 500 MG/5 ML UDCUP TUBE SCH ×2 (08:51→20:14)
[2017-02-19] MEDS: HEPARIN 5,000 UNIT/0.5 ML SYR SC SCH ×2 (08:52→20:14)
--- NOTE | 2017-02-19 09:30 | GOP ---
[f rep st] OPERATIVE REPORT DATE OF OPERATION: 02/18/2017 SURGEON: Austin Morel MD MED CARE MANAGER: Alice Bang PA-C PREOPERATIVE DIAGNOSIS: Post hemorrhagic hydrocephalus. POSTOPERATIVE DIAGNOSIS: Post hemorrhagic hydrocephalus. PROCEDURE PERFORMED: 1. Removal of ventriculostomy catheter. 2. Endoscopic placement of right frontal ventriculoperitoneal shunt. 3. Use of Stealth stereotactic navigation with electromagnetic tracking. FINDINGS: Successful POINT OF CARE SPECIALIST shunt placement. SPECIMENS: None. ESTIMATED BLOOD LOSS: 25 cc. INDICATIONS: The patient is a 46-year-old woman who presented with a subarachnoid hemorrhage and cri tically severe vasospasm. Ventriculostomy was placed for hydrocephalus, and she has now progressed t hrough the vasospasm, and her aneurysm was treated with endovascular coiling. We were unsuccessful i n weaning her ventriculostomy, and she developed ventriculomegaly; therefore, we have taken her elect ively today for POINT OF CARE SPECIALIST shunting. DESCRIPTION OF PROCEDURE: After informed consent was obtained from the patient's family, the patient was brought to the operating room, and was placed in a supine position on the operating table. A fo rmal time-out was performed, identifying the patient by name, medical record number, and date of chong h. Preoperative antibiotics were given. The endotracheal tube was placed, and general endotracheal anesthesia was smoothly induced. The patient's head was turned slightly toward the left side on a he adrest. The Quintic electromagnetic tracking system was connected to the forehead and was then registered to the scalp and checked for accuracy using known surface landmarks. At this point, the ventriculostomy catheter was tied off, and the head and abdomen were prepped and draped in a normal s terile fashion. A 1.5 cm linear incision was made on the abdomen using a 10 blade, and the subcutane ous tissues were dissected using monopolar electrocautery. The anterior rectus sheath was opened. T he rectus muscle was split in line with its fibers, and the posterior rectus sheath and peritoneum we re elevated through the rectus and opened. Omentum was visualized, and a dissector was easily passed into the peritoneal cavity. An antibiotic-soaked sponge was then placed in this region. Next, the incision was made on the head over the area where the previous ventriculostomy had been ins erted. A subgaleal pocket was created laterally, and an intervening incision was made just behind th e right ear. The shunt passer was then used to tunnel a Bactiseal shunt catheter from the intervenin g incision behind the ear down to the abdominal incision. The catheter was then pulled through up to the cranial incision, and a Zazomas programmable valve was connected to the catheter and secur ed with a silk tie. The performance setting of the valve was 3. The valve was then seated into its subgaleal pocket. At this point, the ventriculostomy catheter was cut and removed. A new Bactiseal endoscopic catheter was placed on the stylet for the AxIEM, and stereotactically was placed into the ventricle. Brisk CSF flow was obtained. The endoscope was then inserted through the catheter and us ed to visualize the choroid plexus in the foramina of [place], and the catheter was easily placed into the frontal horn. Next, the catheter was cut to length and connected to the valve using a silk tie a nd seated into the seat at the ada hole. Excellent spontaneous flow of CSF was obtained through the distal catheter. The distal catheter was then placed into the peritoneum, and a single Vicryl purse string stitch was placed around the catheter into the peritoneum. Both wounds were then copiously ir rigated with bacitracin irrigation. They were then closed in layers. Sterile dressings were then pl aced. The patient was awakened in the operating room. She was extubated and transferred back to the ICU in stable condition. There were no operative complications. I was scrubbed and present for the entire procedure. FLUIDS AND URINE OUTPUT: Per the anesthesia record. DRAINS: None. /[id number]/MODL
[2017-02-19] MEDS: SENNOSIDES 17.6 MG/10 ML UDL TUBE SCH ×2 (09:37→20:03)
--- NOTE | 2017-02-19 13:20 | HOSPPROG ---
Hospitalist Progress Note Assessment/Plan: # SAH d/t aneurysm s/p ventriculostomy and coiling - HEALTH DATA ADMINISTRATOR yesterday d/t ventriculomegaly - cont keppra and nimodipine # fever - no clear infectious etiology at this point - follow, CTX stopped yesterday # acute hypoxic resp failure - resolved, suspect d/t pna; extubated 02/13 # c. dif colitis - vanc PO # h flu pna - received azith, currently on RA # GI - getting TF # VTE ppx - SCDs # dispo - LTAC or SNF Subjective: s/p HEALTH DATA ADMINISTRATOR shunt yesterday Objective: Vital Signs Temp Pulse Resp BP Pulse Ox 37.6 C 81 21 H 122/81 H 94 02/19/17 11:51 02/19/17 11:51 02/19/17 11:51 02/19/17 11:51 02/19/17 11:51 Laboratory Results 02/19/17 04:59 02/19/17 04:59 02/18/17 02/19/17 02/20/17 05:59 05:59 05:59 Intake Total 1541 2182 Output Total 1586 2393 Balance -45 -211 chart reviewed imaging reviewed - Physical Exam Constitutional: no apparent distress, appears nourished Cardiovascular: regular rate and rhythym, no murmur, rub, or gallop Respiratory: no respiratory distress, no rales or rhonchi, clear to auscultation Gastrointestinal: normoactive bowel sounds, soft, non-tender abdomen, no palpable masses ICD10 Worksheet Patient Problems: Problems Problem Status Onset C. difficile diarrhea Acute ~02/12/17 Subarachnoid hemorrhage Acute Aneurysm of anterior communicating artery Acute
--- NOTE | 2017-02-19 16:26 | ASMTCMCOM ---
CM Note CM Note Notes: Spoke at length with patient's nurse who states the ventricular peritoneal shunt placed today is galeano to seeing if their is possibly more improvement. They leave the shunt in place for 3 days and then reassess where patient's functioning is at. PT is now recommending SNF rehab. Was unable to get in touch with patient's to discuss a plan. Next steps - get 's input and send referrals to SNF he has chosen. CM will follow. Date Signed: 02/19/2017 04:25 PM Electronically Signed By:Silvana Mccarthy LCSW
[2017-02-20] MEDS: niMODipine 33.333 MG/ML UDL TUBE SCH ×7 (00:05→23:00)
[2017-02-20] MEDS: NS 1,000 ML IV SCH (00:36)
[2017-02-20] MEDS: VANCOMYCIN 125 MG/2.5 ML UDL PO SCH ×4 (05:34→20:56)
--- NOTE | 2017-02-20 07:49 | NEUSURGPN ---
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 Morel Subjective: Unable to obtain, non verbal Objective: NAD Opens eyes to voice Hand squeeze on the right EVD incisions c/d/i Abdomen soft, Non distended Catheter Insertion Date: 02/06/17 - Physician Discussed Patient with : Maria Teresa Neurosurgery Physical Exam - Vitals, I&O, Labs I and O 02/19/17 02/20/17 02/21/17 05:59 05:59 05:59 Intake Total 2182 2575 Output Total 2393 2600 Balance -211 -25 Weight 63.3 kg 65.4 kg Intake: IV Infused (ml) 1858 1195 Ns 1,000 ml @ 100 mls/hr 1858 1195 IV CONT MILVIA Rx#: [id number] Tube Feeding (ml) 224 1004 Tube Flush (ml) 100 376 Output: Urine (ml) 2250 2600 Catheter 2250 2600 CSF Drainage Amount 143 Right Ventriculostomy 143 Other: Number of Stools Catheter 1 1 Vital Signs Temp Pulse Resp BP Pulse Ox 37.7 C 85 22 H 114/65 96 02/20/17 04:00 02/20/17 06:00 02/20/17 06:00 02/20/17 06:00 02/20/17 06:00 Laboratory Results 02/19/17 04:59 02/19/17 04:59 ICD10 Worksheet Patient Problems: Problems Problem Status Onset Aneurysm of anterior communicating artery Acute C. difficile diarrhea Acute ~02/12/17 Subarachnoid hemorrhage Acute
[2017-02-20] MEDS ORDERED: POTASSIUM CL 10 MEQ TAB PO ONE (08:07)
[2017-02-20] MEDS: SENNOSIDES 17.6 MG/10 ML UDL TUBE SCH ×2 (08:16→20:09)
[2017-02-20] MEDS ORDERED: POTASSIUM CL 20 MEQ/15 ML UDCUP TUBE ONE ×2 (08:30→09:30)
[2017-02-20] MEDS: HEPARIN 5,000 UNIT/0.5 ML SYR SC SCH ×2 (09:01→20:56)
[2017-02-20] MEDS: levETIRAcetam 500 MG/5 ML UDCUP TUBE SCH ×2 (09:01→20:55)
[2017-02-20] MEDS: FAMOTIDINE 20 MG TAB TUBE SCH ×2 (09:01→20:56)
[2017-02-20] MEDS: CHLORHEXIDINE GLUCONATE 15 ML UDL PO SCH ×2 (09:01→20:56)
[2017-02-20] MEDS: BACITRACIN OINTMENT 1 PACKET TP SCH ×2 (09:06→20:56)
--- NOTE | 2017-02-20 11:34 | HOSPPROG ---
Hospitalist Progress Note Assessment/Plan: # SAH d/t aneurysm s/p ventriculostomy and coiling - BRAKE ASSEMBLER shunt yesterday d/t ventriculomegaly - cont keppra and nimodipine # fever - no clear infectious etiology at this point (UCx with low colony count) - follow, CTX stopped yesterday # neck pain - notify nsg # acute hypoxic resp failure - resolved, suspect d/t pna; extubated 02/13 # c. dif colitis - vanc PO D#9 # h flu pna - received azith, currently on RA # GI - getting TF # VTE ppx - SCDs/heparin # dispo - LTAC or SNF Subjective: notified of neck pain by RN Objective: Vital Signs Temp Pulse Resp BP Pulse Ox 37.7 C 76 20 111/61 91 L 02/20/17 04:00 02/20/17 10:00 02/20/17 10:00 02/20/17 10:00 02/20/17 10:00 Microbiology 02/17/17 22:14 Urine Culture - Final Urine,Catheterized Enterobacter Aerogenes Laboratory Results 02/19/17 04:59 02/19/17 04:59 02/19/17 02/20/17 02/21/17 05:59 05:59 05:59 Intake Total 2182 2575 Output Total 2393 2600 Balance -211 -25 discussed with ICU team and Dr Cross tele reviewed - Physical Exam Constitutional: other (sleeping) Cardiovascular: regular rate and rhythym, no murmur, rub, or gallop Respiratory: no respiratory distress, no rales or rhonchi, clear to auscultation Gastrointestinal: normoactive bowel sounds, soft, non-tender abdomen, no palpable masses ICD10 Worksheet Patient Problems: Problems Problem Status Onset C. difficile diarrhea Acute ~02/12/17 Subarachnoid hemorrhage Acute Aneurysm of anterior communicating artery Acute
[2017-02-20] MEDS: ACETAMINOPHEN 650 MG/20.3 ML UDCUP TUBE PRN (22:12)
[2017-02-20] MEDS: LORazepam 2 MG/ML INJ IVP PRN (22:59)
[2017-02-21] MEDS: niMODipine 33.333 MG/ML UDL TUBE SCH ×5 (03:37→20:39)
[2017-02-21 04:35] LABS: % IMMATURE GRANULYOCYTES 0.4 % (0.0-1.1); ABSOLUTE IMMATURE GRANULOCYTES 0.03 10^3/uL (0.00-0.10); ADD DIFF? NO; ADD MORPH? NO; ADD SCAN? NO; ATYPICAL LYMPHOCYTE FLAG 20 (0-99); FRAGMENT RBC FLAG 0 (0-99); HEMATOCRIT 36.1 % (38.0-47.0); HEMOGLOBIN 11.6 g/dL (12.6-16.3); LEFT SHIFT FLG 0 (0-99); LIPEMIA HEMOLYSIS FLAG 80 (0-99); MEAN CELL HEMOGLOBIN 33.6 pg (27.9-34.1); MEAN CELL HEMOGLOBIN CONCENTR. 32.1 g/dL (32.4-36.7); MEAN CELL VOLUME 104.6 fL (81.5-99.8); MEAN PLATELET VOLUME 11.2 fL (8.7-11.7); PLATELET CLUMPS FLAG 10 (0-99); PLATELET COUNT 344 10^3/uL (150-400); RED BLOOD CELL COUNT 3.45 10^6/uL (4.18-5.33); RED CELL DISTRIBUTION WIDTH 12.5 % (11.5-15.2)
[2017-02-21] MEDS: VANCOMYCIN 125 MG/2.5 ML UDL PO SCH ×4 (05:14→20:39)
[2017-02-21 05:32] LABS: ANION GAP 11 mEq/L (8-16); CALCIUM 9.6 mg/dL (8.5-10.4); CARBON DIOXIDE 25 mEq/l (22-31); CHLORIDE 106 mEq/L (97-110); CREATININE 0.5 mg/dL (0.6-1.0); GLOMERULAR FILTRATION RATE > 60; GLUCOSE 103 mg/dL (70-100); POTASSIUM 3.9 mEq/L (3.5-5.2); SODIUM 142 mEq/L (134-144)
[2017-02-21] MEDS: levETIRAcetam 500 MG/5 ML UDCUP TUBE SCH ×2 (08:22→20:40)
[2017-02-21] MEDS: FAMOTIDINE 20 MG TAB TUBE SCH ×2 (08:22→20:39)
[2017-02-21] MEDS: HEPARIN 5,000 UNIT/0.5 ML SYR SC SCH ×2 (08:23→20:37)
[2017-02-21] MEDS: CHLORHEXIDINE GLUCONATE 15 ML UDL PO SCH ×2 (08:23→20:42)
[2017-02-21] MEDS: BACITRACIN OINTMENT 1 PACKET TP SCH ×2 (08:23→20:40)
[2017-02-21] MEDS: SENNOSIDES 17.6 MG/10 ML UDL TUBE SCH ×2 (08:24→21:25)
--- NOTE | 2017-02-21 09:50 | NEUSURGPN ---
Assessment/Plan: 46 yo F s/p coiling of acomm aneursym and TECHNICAL MAINTENANCE TECHNICIAN shunt placement on 02/18/17 -Grasps right hand to command and opens eyes to voice this morning and will track eyes -BP parameters to 100-180 -total fluids are 100ml including 50ml of tube feeds -Call NS with any changes -Optmize pain management, patient has been having some tenderness over her TECHNICAL MAINTENANCE TECHNICIAN shunt track. -DVT prophx: TEDs, SCDs, heparin SQ -LTAC planning -Discussed with Dr. Morel Subjective: Complaint of some right sided neck pain Objective: Opens eyes to voice. PERRLA. Squeezes right laundry supervisor on command. Incisions c/d/i. Abd soft, non distended Catheter Insertion Date: 02/06/17 - Physician Discussed Patient with : Maria Teresa Neurosurgery Physical Exam - Vitals, I&O, Labs I and O 02/20/17 02/21/17 02/22/17 05:59 05:59 05:59 Intake Total 2575 2562 205 Output Total 2600 2650 Balance - -88 205 Weight 65.4 kg 63.9 kg Intake: IV Infused (ml) 1195 983 Ns 1,000 ml @ 100 mls/hr 1195 983 IV CONT MILVIA Rx#: [id number] Tube Feeding (ml) 1004 1079 155 Tube Flush (ml) 376 500 50 Output: Urine (ml) 2600 2650 Catheter 2600 2650 NG Tube Output (ml) 0 Small Bore (5-12 [place] Citizen) 0 Weighted Right Naris Stomach Other: Number of Stools Catheter 1 1 1 Microbiology 02/17/17 22:14 Urine Culture - Final Urine,Catheterized Enterobacter Aerogenes Vital Signs Temp Pulse Resp BP Pulse Ox 37.3 C 117 H 20 107/55 L 98 02/21/17 07:45 02/21/17 07:45 02/21/17 07:45 02/21/17 07:45 02/21/17 07:45 Laboratory Results 02/21/17 04:20 02/21/17 04:20 ICD10 Worksheet Patient Problems: Problems Problem Status Onset Aneurysm of anterior communicating artery Acute C. difficile diarrhea Acute ~02/12/17 Subarachnoid hemorrhage Acute
--- NOTE | 2017-02-21 12:00 | HOSPPROG ---
Hospitalist Progress Note Assessment/Plan: # SAH d/t aneurysm s/p ventriculostomy and coiling - SPECIAL NEEDS CHILD CAREGIVER shunt placed d/t ventriculomegaly - cont keppra and nimodipine # fever - no clear infectious etiology at this point (UCx with low colony count) - follow, CTX stopped # neck pain - per nsg very common post SPECIAL NEEDS CHILD CAREGIVER shunt # acute hypoxic resp failure - resolved, suspect d/t pna; extubated 02/13 # c. dif colitis - vanc PO D#10 # h flu pna - received azith, currently on RA # GI - getting TF # VTE ppx - SCDs/heparin # dispo - LTAC or SNF Subjective: no clinical change overnight; met with her son Objective: Vital Signs Temp Pulse Resp BP Pulse Ox 37.3 C 117 H 20 107/55 L 98 02/21/17 07:45 02/21/17 07:45 02/21/17 07:45 02/21/17 07:45 02/21/17 07:45 Microbiology 02/17/17 22:14 Urine Culture - Final Urine,Catheterized Enterobacter Aerogenes Laboratory Results 02/21/17 04:20 02/21/17 04:20 02/20/17 02/21/17 02/22/17 05:59 05:59 05:59 Intake Total 2575 2562 205 Output Total 2600 2650 Balance -25 -88 205 - Physical Exam Constitutional: no apparent distress, appears nourished Ears, Nose, Mouth, Throat: other (NG tube) Cardiovascular: regular rate and rhythym, no murmur, rub, or gallop Respiratory: no respiratory distress, no rales or rhonchi, clear to auscultation Gastrointestinal: normoactive bowel sounds, soft, non-tender abdomen, no palpable masses ICD10 Worksheet Patient Problems: Problems Problem Status Onset C. difficile diarrhea Acute ~02/12/17 Subarachnoid hemorrhage Acute Aneurysm of anterior communicating artery Acute
[2017-02-21] MEDS: ACETAMINOPHEN 650 MG/20.3 ML UDCUP TUBE PRN ×2 (12:56→21:25)
--- NOTE | 2017-02-21 16:50 | ASMTCMCOM ---
CM Note CM Note Notes: Patient moved to Med Surg. Spoke to who has talked to patient about PEG tube. Patient prefers to have a PEG rather than NG tube. If she gets a PEG could go to SNF Rehab. prefers [facility]. Gave him addresses for [facility] to go look. Need an order from Neurosurgery for a PEG. Date Signed: 02/21/2017 04:50 PM Electronically Signed By:Claudia Acevedo LCSW
[2017-02-21] MEDS: NS 1,000 ML IV SCH (17:37)
[2017-02-22] MEDS: niMODipine 33.333 MG/ML UDL TUBE SCH ×3 (00:13→08:24)
[2017-02-22] MEDS: VANCOMYCIN 125 MG/2.5 ML UDL PO SCH ×4 (05:59→20:42)
[2017-02-22] MEDS: BACITRACIN OINTMENT 1 PACKET TP SCH ×2 (08:26→20:42)
[2017-02-22] MEDS: HEPARIN 5,000 UNIT/0.5 ML SYR SC SCH ×2 (08:26→20:45)
[2017-02-22] MEDS: SENNOSIDES 17.6 MG/10 ML UDL TUBE SCH ×2 (08:30→21:31)
[2017-02-22] MEDS: FAMOTIDINE 20 MG TAB TUBE SCH ×2 (08:30→20:47)
[2017-02-22] MEDS: CHLORHEXIDINE GLUCONATE 15 ML UDL PO SCH ×2 (08:31→20:45)
[2017-02-22] MEDS: levETIRAcetam 500 MG/5 ML UDCUP TUBE SCH ×2 (08:33→20:43)
--- NOTE | 2017-02-22 09:32 | NEUSURGPN ---
Assessment/Plan: 46 yo F s/p coiling of acomm aneursym and CUBING MACHINE TENDER shunt placement on 02/18/17 -Grasps right hand to command and opens eyes to voice this morning and will track eyes -BP parameters to 100-180 -total fluids are 100ml including 50ml of tube feeds -Call NS with any changes -Optimize pain management, patient has been having some tenderness over her CUBING MACHINE TENDER shunt track. -DVT prophx: TEDs, SCDs, heparin SQ -LTAC vs acute rehab planning. -Would be in favor or PEG if speech estimates prolonged time before being able to take PO. -Discussed with Dr. Morel Subjective: Shakes head no to pain Objective: NAD opens eyes to voice. Shakes heads yes or no to simple questions. moves RUE and RLE. No following commands this morning. Incision c/d/i Catheter Insertion Date: 02/06/17 - Physician Discussed Patient with : Maria Teresa Neurosurgery Physical Exam - Vitals, I&O, Labs I and O 02/21/17 02/22/17 02/23/17 05:59 05:59 05:59 Intake Total 2562 195 Output Total 2650 1978 Balance -88 -24 Weight 63.9 kg 66.313 kg Intake: Oral (ml) 0 IV Infused (ml) 983 750 Ns 1,000 ml @ 100 mls/hr 983 150 IV CONT MILVIA Rx#: [id number] Ns 1,000 ml @ 50 mls/hr 600 IV CONT MILVIA Rx#: [id number] Tube Feeding (ml) 1079 905 Tube Flush (ml) 500 300 Output: Urine (ml) 2650 1974 Catheter 2649 1974 NG Tube Output (ml) 0 4 Small Bore (5-12 Romansh) 0 4 Weighted Right Naris Stomach Other: Intake Quantity Yes Sufficient Number of Stools Catheter 1 1 Incontinence 1 Vital Signs Temp Pulse Resp BP Pulse Ox 37.2 C 115 H 16 125/75 H 92 02/22/17 07:18 02/22/17 07:18 02/22/17 07:18 02/22/17 07:18 02/22/17 07:18 Laboratory Results 02/21/17 04:20 02/21/17 04:20 ICD10 Worksheet Patient Problems: Problems Problem Status Onset Aneurysm of anterior communicating artery Acute C. difficile diarrhea Acute ~02/12/17 Subarachnoid hemorrhage Acute
[2017-02-22 09:44] LABS: % IMMATURE GRANULYOCYTES 0.3 % (0.0-1.1); ABSOLUTE IMMATURE GRANULOCYTES 0.03 10^3/uL (0.00-0.10); ADD DIFF? NO; ADD MORPH? NO; ADD SCAN? NO; ATYPICAL LYMPHOCYTE FLAG 10 (0-99); FRAGMENT RBC FLAG 0 (0-99); HEMATOCRIT 34.6 % (38.0-47.0); HEMOGLOBIN 11.2 g/dL (12.6-16.3); LEFT SHIFT FLG 0 (0-99); LIPEMIA HEMOLYSIS FLAG 80 (0-99); MEAN CELL HEMOGLOBIN 33.7 pg (27.9-34.1); MEAN CELL HEMOGLOBIN CONCENTR. 32.4 g/dL (32.4-36.7); MEAN CELL VOLUME 104.2 fL (81.5-99.8); MEAN PLATELET VOLUME 11.2 fL (8.7-11.7); PLATELET CLUMPS FLAG 0 (0-99); PLATELET COUNT 310 10^3/uL (150-400); RED BLOOD CELL COUNT 3.32 10^6/uL (4.18-5.33); RED CELL DISTRIBUTION WIDTH 12.3 % (11.5-15.2)
[2017-02-22 09:56] LABS: ALANINE AMINOTRANSFERASE 51 IU/L (9-52); ALBUMIN 3.2 g/dL (3.5-5.0); ALKALINE PHOSPHATASE 97 IU/L (38-126); ANION GAP 10 mEq/L (8-16); ASPARTATE AMINOTRANSFERASE 28 IU/L (14-46); BILIRUBIN,TOTAL 0.3 mg/dL (0.1-1.4); CALCIUM 8.7 mg/dL (8.5-10.4); CARBON DIOXIDE 24 mEq/l (22-31); CHLORIDE 108 mEq/L (97-110); CREATININE 0.4 mg/dL (0.6-1.0); GLOMERULAR FILTRATION RATE > 60; GLUCOSE 91 mg/dL (70-100); SODIUM 142 mEq/L (134-144); TOTAL PROTEIN 5.9 g/dL (6.3-8.2)
[2017-02-22 10:07] LABS: TROPONIN I < 0.012 ng/mL (0.000-0.034)
--- NOTE | 2017-02-22 12:40 | ASMTCMCOM ---
CM Note CM Note Notes: Pt SNF options in [facility] are [facility] and [facility] due to [place] [employer] insurance. Referrals sent to each; [facility] has no insurance beds, [facility] can accept. Insurance authorization is needed, Sophia noel notified to pursue auth. Pt paris Mckeon was updated, he will try to tour . Date Signed: 02/22/2017 12:39 PM Electronically Signed By:JULIANNE Phelps
[2017-02-22] MEDS ORDERED: IOPAMIDOL (ISOVUE 370) 100 ML BTL IV ONE (13:18)
--- NOTE | 2017-02-22 14:54 | HOSPPROG ---
Hospitalist Progress Note Assessment/Plan: Assessment: 46 yo F p/w SAH 2/2 JAYANT aneurysm rupture c/b ongoing fever and tachycardia Plan: # SAH d/t aneurysm s/p ventriculostomy and coiling - FRESCO ARTIST shunt placed d/t ventriculomegaly - cont keppra and nimodipine - dense neuro deficits, including expressive aphasia w/ word-finding difficulty , paralysis (all ext w/ exception of R 2nd finger) # SIRS - acute, new problem to this provider, further w/u indicated. Dimer positive, trop nl, no clear infectious etiology at this point, but aspiration PNA is possible given increased cough and junky secretions - get CTA - hold on further IVF, cont volume through NGT - no further Abx # neck pain - per nsg very common post FRESCO ARTIST shunt # acute hypoxic resp failure - resolved, initially 2/2 suspected pna; extubated 02/13 # c. dif colitis - vanc PO D#11 # h flu pna - received azith, currently on RA # atelectasis - acute, present on CXR (personally interpreted) # Diet - getting TF # VTE ppx - SCDs/heparin # Code - Full # dispo - LTAC or SNF Subjective: patient able to give 1 word answers Objective: Vital Signs Temp Pulse Resp BP Pulse Ox 37.4 C 114 H 16 105/72 94 02/22/17 11:52 02/22/17 11:52 02/22/17 07:18 02/22/17 11:52 02/22/17 11:52 Microbiology 02/17/17 09:40 Blood Culture - Final Blood Laboratory Results 02/22/17 09:15 02/22/17 09:15 02/21/17 02/22/17 02/23/17 05:59 05:59 05:59 Intake Total 2562 1954 Output Total 2650 1978 1049 Balance -88 -24 -1050 - Physical Exam Constitutional: no apparent distress, not in pain, obese, No uncomfortable Cardiovascular: tachycardia, No systolic murmur, No irregularly irregular, No edema Respiratory: reduced air movement (bilat bases), rhonchi (on inspiration), No expiratory wheeze, No bronchial breath sounds Gastrointestinal: normoactive bowel sounds, soft, non-tender abdomen, no palpable masses, other (NGT in place), No distension Neurologic: sensation intact bilaterally (upper ext), weakness (bilat paralysis , 2/5 motor R 2nd finger), other (lateral ophthalmoplegia, expressive aphasia) ICD10 Worksheet Patient Problems: Problems Problem Status Onset C. difficile diarrhea Acute ~02/12/17 Subarachnoid hemorrhage Acute Aneurysm of anterior communicating artery Acute
[2017-02-23] MEDS: NS 1,000 ML IV SCH ×2 (00:41→21:43)
[2017-02-23 04:45] LABS: % IMMATURE GRANULYOCYTES 0.3 % (0.0-1.1); ABSOLUTE IMMATURE GRANULOCYTES 0.03 10^3/uL (0.00-0.10); ADD DIFF? NO; ADD MORPH? NO; ADD SCAN? NO; ATYPICAL LYMPHOCYTE FLAG 10 (0-99); FRAGMENT RBC FLAG 10 (0-99); HEMATOCRIT 36.8 % (38.0-47.0); HEMOGLOBIN 11.8 g/dL (12.6-16.3); LEFT SHIFT FLG 0 (0-99); LIPEMIA HEMOLYSIS FLAG 80 (0-99); MEAN CELL HEMOGLOBIN 33.4 pg (27.9-34.1); MEAN CELL HEMOGLOBIN CONCENTR. 32.1 g/dL (32.4-36.7); MEAN CELL VOLUME 104.2 fL (81.5-99.8); MEAN PLATELET VOLUME 11.2 fL (8.7-11.7); PLATELET CLUMPS FLAG 10 (0-99); PLATELET COUNT 347 10^3/uL (150-400); RED BLOOD CELL COUNT 3.53 10^6/uL (4.18-5.33); RED CELL DISTRIBUTION WIDTH 12.5 % (11.5-15.2)
[2017-02-23 04:56] LABS: ALANINE AMINOTRANSFERASE 60 IU/L (9-52); ALBUMIN 3.5 g/dL (3.5-5.0); ALKALINE PHOSPHATASE 104 IU/L (38-126); ANION GAP 10 mEq/L (8-16); ASPARTATE AMINOTRANSFERASE 30 IU/L (14-46); BILIRUBIN,TOTAL 0.4 mg/dL (0.1-1.4); CARBON DIOXIDE 26 mEq/l (22-31); CHLORIDE 103 mEq/L (97-110); CREATININE 0.5 mg/dL (0.6-1.0); GLOMERULAR FILTRATION RATE > 60; GLUCOSE 93 mg/dL (70-100); POTASSIUM 4.2 mEq/L (3.5-5.2); SODIUM 139 mEq/L (134-144); TOTAL PROTEIN 6.7 g/dL (6.3-8.2)
[2017-02-23] MEDS: VANCOMYCIN 125 MG/2.5 ML UDL PO SCH ×4 (06:09→21:55)
--- NOTE | 2017-02-23 08:07 | NEUSURGPN ---
Assessment/Plan: 46 yo F s/p coiling of acomm aneursym and PATRIOT MISSILE AIR DEFENSE ARTILLERY shunt placement on 02/18/17 -Grasps right hand to command, light director geophysical laboratory with left,more alert, trying to talk some and answers some questions, and will track eyes -BP parameters to 100-180 -total fluids are 100ml including 50ml of tube feeds -Call NS with any changes -Optimize pain management, patient has been having some tenderness over her PATRIOT MISSILE AIR DEFENSE ARTILLERY shunt track- denies any pain this morning -DVT prophx: TEDs, SCDs, heparin SQ -LTAC vs acute rehab planning. -C. Diff being managed on Vanc per hospitalist -Would be in favor or PEG if speech estimates prolonged time before being able to take PO. -Discussed with Dr. Morel 02/18/17 19:26 Subjective: Trying to talk some this morning, able to whisper she has no headaches. Objective: NAD, VSS Eyes open, more alert this morning, eyes tracking most of the time but looses concentration during exam easily PERRL Word finding difficulties, but able to make out short phrases Sensation- able to feel "a little bit" per patient on BLE rips right hand strongly, unable to lift light director geophysical laboratory with left hand No movement of BLE Abdomen- soft, non tender- incision c/d/i-dermabonded SHunt incision c/d/i Catheter Insertion Date: 02/06/17 - Physician Discussed Patient with : Maria Teresa Neurosurgery Physical Exam - Vitals, I&O, Labs I and O 02/22/17 02/23/17 02/24/17 05:59 05:59 05:59 Intake Total 1954 1300 Output Total 19780 350 Balance -24 240 -350 Weight 66.313 kg 64.042 kg Intake: Oral (ml) 0 IV Intake (ml) 750 IV Infused (ml) 750 Ns 1,000 ml @ 100 mls/hr 150 IV CONT MILVIA Rx#: [id number] Ns 1,000 ml @ 50 mls/hr 600 IV CONT MILVIA Rx#: [id number] Tube Feeding (ml) 905 500 Tube Flush (ml) 300 50 Output: Urine (ml) 1974 1050 350 Catheter 1974 1050 350 NG Tube Output (ml) 4 10 Small Bore (5-12 Swedish) 4 10 Weighted Right Naris Stomach Other: Intake Quantity Yes Sufficient Number of Stools Catheter 1 Incontinence 1 1 Microbiology 02/17/17 09:40 Blood Culture - Final Blood Vital Signs Temp Pulse Resp BP Pulse Ox 36.5 C 98 18 109/75 94 02/23/17 04:00 02/23/17 04:00 02/23/17 04:00 02/23/17 04:00 02/23/17 04:00 Laboratory Results 02/23/17 04:20 02/23/17 04:20 ICD10 Worksheet Patient Problems: Problems Problem Status Onset Aneurysm of anterior communicating artery Acute C. difficile diarrhea Acute ~02/12/17 Subarachnoid hemorrhage Acute
[2017-02-23] MEDS: HEPARIN 5,000 UNIT/0.5 ML SYR SC SCH ×2 (09:03→22:02)
[2017-02-23] MEDS: ACETAMINOPHEN 650 MG/20.3 ML UDCUP TUBE PRN ×2 (09:04→21:59)
[2017-02-23] MEDS: levETIRAcetam 500 MG/5 ML UDCUP TUBE SCH ×2 (09:04→21:56)
[2017-02-23] MEDS: FAMOTIDINE 20 MG TAB TUBE SCH ×2 (09:05→21:59)
[2017-02-23] MEDS: CHLORHEXIDINE GLUCONATE 15 ML UDL PO SCH ×2 (09:05→21:54)
[2017-02-23] MEDS: SENNOSIDES 17.6 MG/10 ML UDL TUBE SCH ×2 (09:05→23:45)
[2017-02-23] MEDS: BACITRACIN OINTMENT 1 PACKET TP SCH ×2 (09:05→22:21)
--- NOTE | 2017-02-23 15:26 | HOSPPROG ---
Hospitalist Progress Note Assessment/Plan: 46 yo F w probable alcoholism here w SAH 2/2 aneurysm rupture c diff: 44/56 doses given Acute subarachnoid hemorrhage due to JAYANT aneurysm s/p coiling --> vasospasm/CVA stabilized per neurosurgery sanchez: remove Fever - bronch cx growing H flu - presumed PNA -s/p 6 days azithromycin -Leukocytosis is improving. Acute respiratory failure - vent -wean off sedation as tolerated. -likely to proceed with trach/PEG soon if cannot get off Vent. Would likely be done early next week. Mucus plugging - bronch prn per pulmonary diarrhea: follow proph: scd's Subjective: per notes more alert but sleeping when I see her Objective: Vital Signs Temp Pulse Resp BP Pulse Ox 37.6 C 97 20 110/71 94 02/23/17 12:00 02/23/17 12:00 02/23/17 12:00 02/23/17 12:00 02/23/17 12:00 Microbiology 02/17/17 09:40 Blood Culture - Final Blood Laboratory Results 02/23/17 04:20 02/23/17 04:20 02/22/17 02/23/17 02/24/17 05:59 05:59 05:59 Intake Total 1954 1300 Output Total 1978 1060 850 Balance -24 240 -850 - Physical Exam Constitutional: no apparent distress, appears nourished Eyes: PERRL, anicteric sclera Ears, Nose, Mouth, Throat: moist mucous membranes, hearing normal Cardiovascular: regular rate and rhythym, no murmur, rub, or gallop Respiratory: no respiratory distress, no rales or rhonchi Gastrointestinal: normoactive bowel sounds, soft, non-tender abdomen, No rebound Genitourinary: no bladder fullness, sanchez in urethra Skin: warm, normal color Musculoskeletal: No full muscle strength Neurologic: No AAOx3 Psychiatric: No interacting appropriately ICD10 Worksheet Patient Problems: Problems Problem Status Onset Aneurysm of anterior communicating artery Acute C. difficile diarrhea Acute ~02/12/17 Subarachnoid hemorrhage Acute
[2017-02-24] MEDS: VANCOMYCIN 125 MG/2.5 ML UDL PO SCH ×4 (05:50→21:53)
[2017-02-24] MEDS: ACETAMINOPHEN 650 MG/20.3 ML UDCUP TUBE PRN ×2 (05:53→21:50)
[2017-02-24] MEDS: HEPARIN 5,000 UNIT/0.5 ML SYR SC SCH ×2 (08:47→21:53)
[2017-02-24] MEDS: CHLORHEXIDINE GLUCONATE 15 ML UDL PO SCH ×2 (08:53→21:52)
[2017-02-24] MEDS: levETIRAcetam 500 MG/5 ML UDCUP TUBE SCH ×2 (08:53→21:52)
[2017-02-24] MEDS: FAMOTIDINE 20 MG TAB TUBE SCH ×2 (08:53→21:52)
[2017-02-24] MEDS: BACITRACIN OINTMENT 1 PACKET TP SCH ×2 (08:53→21:52)
[2017-02-24] MEDS: SENNOSIDES 17.6 MG/10 ML UDL TUBE SCH ×2 (08:56→23:35)
--- NOTE | 2017-02-24 09:12 | NEUSURGPN ---
Date of Surgery: 02/18/17 Post Op Day: 6 Assessment/Plan: 46 yo F s/p coiling of acomm aneursym on 02/02 and INSERTING MACHINE OPERATOR shunt placement on 02/18/17 -Neuro stable -BP parameters to 100-180 -total fluids are 100ml including 50ml of tube feeds -DVT prophx: TEDs, SCDs, heparin SQ -LTAC vs acute rehab planning. -C. Diff being managed on Vanc per hospitalist -Would be in favor of PEG if speech estimates prolonged time before being able to take PO. -Please contact neurosurgery with any changes in neuro status/exam -Discussed with Dr. Morel Subjective: Resting comfortable this morning Objective: Eyes open. Awake. PERRL. eyes tracking most of the time rips right hand strongly, unable to lift light tours hostess with left hand No movement of BLE Abdomen- soft, non tender- incision c/d/i-dermabonded SHunt incision c/d/i Catheter Insertion Date: 02/06/17 - Physician Discussed Patient with Dr.: Morel Neurosurgery Physical Exam - Vitals, I&O, Labs I and O 02/23/17 02/24/17 02/25/17 05:59 05:59 05:59 Intake Total 4791 595 0681 Output Total 1060 2275 Balance 240 -1375 1200 Weight 66.313 kg 64.042 kg 66.95 kg Intake: IV Intake (ml) 750 IV Infused (ml) 900 1200 Ns 1,000 ml @ 100 mls/hr 900 1200 IV CONT MILVIA Rx#: [id number] Tube Feeding (ml) 500 Tube Flush (ml) 50 Output: Urine (ml) 1050 2275 Catheter 1050 2275 NG Tube Output (ml) 10 Small Bore (5-12 Citizen [place]) 10 Weighted Right Naris Stomach Other: Number of Stools Incontinence 1 1 1 Vital Signs Temp Pulse Resp BP Pulse Ox 36.9 C 98 16 110/69 95 02/24/17 06:02 02/24/17 06:02 02/24/17 06:02 02/24/17 06:02 02/24/17 06:02 Laboratory Results 02/23/17 04:20 02/23/17 04:20 ICD10 Worksheet Patient Problems: Problems Problem Status Onset Aneurysm of anterior communicating artery Acute C. difficile diarrhea Acute ~02/12/17 Subarachnoid hemorrhage Acute
--- NOTE | 2017-02-24 13:27 | HOSPPROG ---
Hospitalist Progress Note Assessment/Plan: DIAGNOSES: Acute subarachnoid hemorrhage due to JAYANT aneurysm s/p coiling --> vasospasm/CVA -hemorrhage stabilized -remains severely debilitated, dependent and noncommunicative -management per neurosurgery s/p Acute respiratory failure with hypoxemia, s/p mechanical ventilation, now on NC O2 -s/p antibiotics for H flu cultures positive and suspected pneumonia nutrition per tube feedings via NG -will likely need peg C Diff colitis with diarrhea, on vancomycin PLANS: -continue po vanco -continue tube feeds, likely PEG -skin protective measures -low dose heparin for DVT proph -DC planning SUBJECTIVE: noncommunicative, so no symptoms assessment OBJECTIVE Vitals reviewed: stable without fever Exam: alert with eyse open and makes eye contact; no efforts otherwise to speak; 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 difficile diarrhea Acute ~02/12/17 Subarachnoid hemorrhage Acute
--- NOTE | 2017-02-24 14:24 | ASMTCMCOM ---
CM Note CM Note Notes: [facility] accepts pt and has [place] ins authorization. SNF still rec at this time, pt may need peg. Updates sent to . Of note: [facility] cannot accept w dobhoff. Date Signed: 02/24/2017 02:23 PM Electronically Signed By:JULIANNE Phelps
--- NOTE | 2017-02-24 15:08 | ASMTCMCOM ---
CM Note CM Note Notes: New referral sent to [facility] for consideration per OT/PT rec. Date Signed: 02/24/2017 03:07 PM Electronically Signed By:JULIANNE Phelps
[2017-02-24] MEDS: NS 1,000 ML IV SCH (22:32)
[2017-02-25] MEDS: VANCOMYCIN 125 MG/2.5 ML UDL TUBE SCH ×4 (06:23→21:10)
[2017-02-25] MEDS: NS 1,000 ML IV SCH ×2 (08:58→18:30)
[2017-02-25] MEDS: levETIRAcetam 500 MG/5 ML UDCUP TUBE SCH ×2 (09:00→21:10)
[2017-02-25] MEDS: CHLORHEXIDINE GLUCONATE 15 ML UDL PO SCH ×2 (09:00→21:11)
[2017-02-25] MEDS: BACITRACIN OINTMENT 1 PACKET TP SCH ×2 (09:04→21:11)
[2017-02-25] MEDS: FAMOTIDINE 20 MG TAB TUBE SCH ×2 (09:04→21:11)
[2017-02-25] MEDS: HEPARIN 5,000 UNIT/0.5 ML SYR SC SCH ×2 (09:04→21:11)
[2017-02-25] MEDS: SENNOSIDES 17.6 MG/10 ML UDL TUBE SCH ×2 (09:07→22:35)
--- NOTE | 2017-02-25 09:23 | NEUSURGPN ---
Assessment/Plan: 46 yo F s/p coiling of acomm aneursym on 02/02 and MANUFACTURING ENGINEERING DIRECTOR shunt placement on 02/18/17 -Neuro stable -BP parameters to 100-180 -DVT prophx: TEDs, SCDs, heparin SQ -LTAC vs acute rehab planning- Case management trying to get patient to [place] -C. Diff being managed on Vanc per hospitalist -Would be in favor of PEG if speech estimates prolonged time before being able to take PO. -Please contact neurosurgery with any changes in neuro status/exam -Discussed with Dr. Morel Subjective: Denies pain this morning. Whispers some phrases and able to say if she is in pain or not. Just had oral care and now is resting. Objective: Resting. Eyes open to voice PERRL. eyes tracking most of the time rips right hand strongly, unable to lift light wallet assembler with left hand No movement of BLE Abdomen- soft, non tender- incision c/d/i-dermabonded SHunt incision c/d/i 02/18/17 19:26 Catheter Insertion Date: 02/06/17 - Physician Discussed Patient with Dr.: Morel Patient Seen by Dr.: Morel Neurosurgery Physical Exam - Vitals, I&O, Labs I and O 02/24/17 02/25/17 02/26/17 05:59 05:59 05:59 Intake Total 900 1200 700 Output Total 2275 2800 575 Balance -1375 -1600 125 Weight 64.042 kg 66.95 kg Intake: IV Infused (ml) 900 1200 Ns 1,000 ml @ 100 mls/hr 900 1200 IV CONT MILVIA Rx#: [id number] Tube Feeding (ml) 600 Tube Flush (ml) 100 Output: Urine (ml) 2275 2800 575 Catheter 2275 2800 575 Other: Intake Quantity Yes Sufficient Number of Voids Catheter 1 Number of Stools Incontinence 1 1 1 Vital Signs Temp Pulse Resp BP Pulse Ox 37.4 C 98 20 124/78 H 92 02/25/17 08:00 02/25/17 08:00 02/25/17 08:00 02/25/17 08:00 02/25/17 08:00 Laboratory Results 02/23/17 04:20 02/23/17 04:20 ICD10 Worksheet Patient Problems: Problems Problem Status Onset Aneurysm of anterior communicating artery Acute C. difficile diarrhea Acute ~02/12/17 Subarachnoid hemorrhage Acute
[2017-02-25] MEDS: ACETAMINOPHEN 650 MG/20.3 ML UDCUP TUBE PRN ×2 (10:16→18:23)
--- NOTE | 2017-02-25 11:17 | HOSPPROG ---
Hospitalist Progress Note Assessment/Plan: Patient is a 46-year-old female with history of moderate to heavy alcohol use and chronic back pain. She presented to the emergency room on February 02 with a headache. She was on her way to work and had an accident. There is concern that she had been drinking. 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 Today is my 1st encounter with the patient. Chart reviewed. 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 spoke with her and he is ok with PEG if needed. Explained risks and benefits. Subjective: Brenda is very quiet, speaks quietly. Objective: Vital Signs Temp Pulse Resp BP Pulse Ox 37.4 C 98 20 124/78 H 92 02/25/17 08:00 02/25/17 08:00 02/25/17 08:00 02/25/17 08:00 02/25/17 08:00 Laboratory Results 02/23/17 04:20 02/23/17 04:20 02/24/17 02/25/17 02/26/17 05:59 05:59 05:59 Intake Total 900 1200 700 Output Total 2275 2800 575 Balance -1375 -1600 125 - Physical Exam Constitutional: chronically ill appearing Eyes: PERRL Ears, Nose, Mouth, Throat: hearing normal Cardiovascular: regular rate and rhythym Respiratory: no respiratory distress Gastrointestinal: normoactive bowel sounds Skin: warm Musculoskeletal: other (left upper extremity flaccid/ can squeeze w right hand/ but unable to lift anti gravity) Neurologic: other (Brenda tracts and looks at me while i talk with her/ she is able to tell me her 's name and share she is not in pain) ICD10 Worksheet Patient Problems: Problems Problem Status Onset Aneurysm of anterior communicating artery Acute C. difficile diarrhea Acute ~02/12/17 Subarachnoid hemorrhage Acute
--- NOTE | 2017-02-25 15:11 | ASMTCMCOM ---
CM Note CM Note Notes: Pt to have swallow video tomorrow, may need peg. Aris Santamaria will complete on-site assessment of pt tomorrow. Also, [facility] inpatient acute rehab can take pt, they would need ins auth which can take 24-72 hours. [facility] still able to accept. Date Signed: 02/25/2017 03:10 PM Electronically Signed By:JULIANNE Phelps
[2017-02-26] MEDS: NS 1,000 ML IV SCH ×2 (04:37→17:38)
[2017-02-26] MEDS: VANCOMYCIN 125 MG/2.5 ML UDL TUBE SCH ×2 (06:14→16:52)
[2017-02-26] MEDS: ACETAMINOPHEN 650 MG/20.3 ML UDCUP TUBE PRN ×2 (07:30→22:30)
[2017-02-26] MEDS: SENNOSIDES 17.6 MG/10 ML UDL TUBE SCH ×2 (08:30→22:39)
[2017-02-26] MEDS: BACITRACIN OINTMENT 1 PACKET TP SCH ×2 (08:59→22:31)
[2017-02-26] MEDS: levETIRAcetam 500 MG/5 ML UDCUP TUBE SCH ×2 (08:59→22:29)
[2017-02-26] MEDS: FAMOTIDINE 20 MG TAB TUBE SCH ×2 (08:59→22:39)
[2017-02-26] MEDS: CHLORHEXIDINE GLUCONATE 15 ML UDL PO SCH ×2 (09:01→22:29)
[2017-02-26] MEDS: HEPARIN 5,000 UNIT/0.5 ML SYR SC SCH ×2 (09:01→22:31)
--- NOTE | 2017-02-26 15:21 | SOAPPROG ---
SOAP Progress Note Assessment/Plan: 46 yo F s/p coiling of acomm aneursym on 02/02 and DISTILLATION OPERATOR shunt placement on 02/18/17 -Neuro stable -BP parameters to 100-180 -DVT prophx: TEDs, SCDs, heparin SQ -[facility] here to eval today, hopefully for discharge soon -Passed swallow eval so likely not needing PEG -C. Diff being managed on Vanc per hospitalist -Please contact neurosurgery with any changes in neuro status/exam -Discussed with Dr. Morel 02/14/17 07:11 02/26/17 15:18 Subjective: no complaints, smiling and talking a little today Objective: Vital Signs Temp Pulse Resp BP Pulse Ox 36.3 C 87 18 97/54 L 93 02/26/17 07:13 02/26/17 11:23 02/26/17 11:23 02/26/17 11:23 02/26/17 11:23 Microbiology 02/23/17 18:35 Urine Culture - Final Urine,Catheterized Laboratory Results 02/23/17 04:20 02/23/17 04:20 02/25/17 02/26/17 02/27/17 05:59 05:59 05:59 Intake Total 1200 2800 700 Output Total 2800 2125 Balance -1600 675 700 Awake/Alert RUE 4/5 strength, LUE flicker movement only 1/5 B/L LE really no movement wounds c/d/i - Pending Discharge Pending Discharge Within 24 Hours: No Pending Discharge Within 48 Hours: No ICD10 Worksheet Patient Problems: Problems Problem Status Onset Aneurysm of anterior communicating artery Acute C. difficile diarrhea Acute ~02/12/17 Subarachnoid hemorrhage Acute
--- NOTE | 2017-02-26 16:26 | HOSPPROG ---
Hospitalist Progress Note Assessment/Plan: Patient is a 46-year-old female with history of moderate to heavy alcohol use and chronic back pain. She presented to the emergency room on February 02 with a headache. She was on her way to work and had an accident. There is concern that she had been drinking. 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 Reviewed her care with Dr Morel. 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 shunt * acute hypoxemic respiratory failure Had been on the ventilator in the ICU Status post antibiotics for h influenza now on room air * possible pneumonia Received treatment with azithromycin * C diff colitis On oral vancomycin *intermittent tachycardia during her stay will get a 12 lead to evaluate had a CTA on feb 23/ no PE *hx of alcohol use * nutrition reviewed her care with the ST / she is not aspirating will need 1:1 monitoring while eating feeding tube dc * DVT prophylaxis SCDs and heparin * disposition & plan [facility] evaluating patient while I was assessing her/ hopeful she can go there for rehab Subjective: Brenda smiles /when asked if in pain, she said 'no' Objective: Vital Signs Temp Pulse Resp BP Pulse Ox 36.3 C 87 18 97/54 L 93 02/26/17 07:13 02/26/17 11:23 02/26/17 11:23 02/26/17 11:23 02/26/17 11:23 Microbiology 02/23/17 18:35 Urine Culture - Final Urine,Catheterized Laboratory Results 02/23/17 04:20 02/23/17 04:20 02/25/17 02/26/17 02/27/17 05:59 05:59 05:59 Intake Total 1200 2800 700 Output Total 2800 2125 Balance -1600 675 700 - Physical Exam Constitutional: appears nourished, not in pain, chronically ill appearing Eyes: PERRL Ears, Nose, Mouth, Throat: hearing normal Cardiovascular: regular rate and rhythym Respiratory: no respiratory distress Gastrointestinal: normoactive bowel sounds Musculoskeletal: other (left side flaccid/ right hand squeezes, unable to lift it/ no movement w bilateral lower extremities, says she can feel my touch) Neurologic: other (alert) Psychiatric: interacting appropriately, other (diff to assess/ nods her head and is very soft spoken) ICD10 Worksheet Patient Problems: Problems Problem Status Onset Aneurysm of anterior communicating artery Acute C. difficile diarrhea Acute ~02/12/17 Subarachnoid hemorrhage Acute
--- NOTE | 2017-02-26 17:02 | ASMTCMCOM ---
CM Note CM Note Notes: Pt had swallow eval, can swallow, feeding tube dc and pt can fed 1:1. Remedios Crane [phone] completed on-site eval and pt can go to [facility] next week pending ins auth. Remedios reports realistically [place] auth will be Wednesday. CM will send any updated therapy notes to [facility] fax @ [phone]. Date Signed: 02/26/2017 05:01 PM Electronically Signed By:JULIANNE Phelps
[2017-02-26] MEDS ORDERED: VANCOMYCIN 125 MG/2.5 ML UDL TUBE SCH (17:15)
[2017-02-27] MEDS: NS 1,000 ML IV SCH (03:56)
--- NOTE | 2017-02-27 06:36 | NEUSURGPN ---
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 Diff being managed on Vanc per hospitalist -Please contact neurosurgery with any changes in neuro status/exam Subjective: Patient sleeping, opens eyes to command, no complaints Objective: RUE 4/5 strength, LUE flicker movement only 1/5 B/L LE 0/5 wounds c/d/i Neuro Check Frequency: per routine Urinary Catheter in Place: Yes Urinary Catheter Indication: Accurate I & O Required Catheter Insertion Date: 02/06/17 - Physician Discussed Patient with : Maria Teresa Neurosurgery Physical Exam - Vitals, I&O, Labs I and O 02/26/17 02/27/17 02/28/17 05:59 05:59 05:59 Intake Total 2800 3050 Output Total 2125 450 400 Balance 675 2600 -400 Weight 68.748 kg 69.9 kg Intake: IV Intake (ml) 1200 IV Infused (ml) 1000 1000 Ns 1,000 ml @ 100 mls/hr 1000 1000 IV CONT MILVIA Rx#: [id number] Tube Feeding (ml) 1150 750 Tube Flush (ml) 650 100 Output: Urine (ml) 2125 450 400 Catheter 2125 Incontinence 450 400 Other: Intake Quantity Yes Yes Sufficient Number of Stools Incontinence 1 1 Vital Signs Temp Pulse Resp BP Pulse Ox 36.8 C 92 14 113/72 93 02/27/17 03:48 02/27/17 03:48 02/27/17 03:48 02/27/17 03:48 02/27/17 03:48 Laboratory Results 02/23/17 04:20 02/23/17 04:20 ICD10 Worksheet Patient Problems: Problems Problem Status Onset Aneurysm of anterior communicating artery Acute C. difficile diarrhea Acute ~02/12/17 Subarachnoid hemorrhage Acute
[2017-02-27] MEDS: BACITRACIN OINTMENT 1 PACKET TP SCH ×2 (08:41→22:04)
[2017-02-27] MEDS: CHLORHEXIDINE GLUCONATE 15 ML UDL PO SCH ×2 (08:42→22:05)
[2017-02-27] MEDS: FAMOTIDINE 20 MG TAB TUBE SCH ×2 (08:42→22:05)
[2017-02-27] MEDS: SENNOSIDES 17.6 MG/10 ML UDL TUBE SCH ×2 (08:43→23:14)
[2017-02-27] MEDS: levETIRAcetam 500 MG/5 ML UDCUP TUBE SCH ×2 (08:43→22:04)
[2017-02-27] MEDS: HEPARIN 5,000 UNIT/0.5 ML SYR SC SCH ×2 (08:43→22:05)
--- NOTE | 2017-02-27 09:44 | HOSPPROG ---
Hospitalist Progress Note Assessment/Plan: Patient is a 46-year-old female with history of moderate to heavy alcohol use and chronic back pain. She presented to the emergency room on February 02 with a headache. She was on her way to work and had an accident. There is concern that she had been drinking. 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 * acute hypoxemic respiratory failure Had been on the ventilator in the ICU Status post antibiotics for h influenza now on room air * possible pneumonia Received treatment with azithromycin * C diff colitis On oral vancomycin *intermittent tachycardia during her stay will get a 12 lead to evaluate had a CTA on feb 23/ no PE *hx of alcohol use * nutrition reviewed her care with the ST / she is not aspirating will need 1:1 monitoring while eating feeding tube dc * DVT prophylaxis SCDs and heparin * disposition & plan possible [facility] placement early next week, dc fluids since eating and drinking Subjective: Brenda has no complaints. Objective: Vital Signs Temp Pulse Resp BP Pulse Ox 37.0 C 85 16 99/60 L 90 L 02/27/17 08:00 02/27/17 08:00 02/27/17 08:00 02/27/17 08:00 02/27/17 08:00 Laboratory Results 02/23/17 04:20 02/23/17 04:20 02/26/17 02/27/17 02/28/17 05:59 05:59 05:59 Intake Total 2800 3050 Output Total 2125 450 400 Balance 675 2600 -400 - Physical Exam Constitutional: no apparent distress, appears nourished, not in pain Eyes: PERRL Ears, Nose, Mouth, Throat: hearing normal Cardiovascular: regular rate and rhythym Respiratory: no respiratory distress Gastrointestinal: normoactive bowel sounds Skin: warm Musculoskeletal: other (left side with out any strength noted/flaccid. Right hand with minimal squeeze.) Neurologic: AAOx3, other (more talkative today/ tells me why she is here, where she is, knows her family members) Psychiatric: interacting appropriately, thought process linear ICD10 Worksheet Patient Problems: Problems Problem Status Onset Aneurysm of anterior communicating artery Acute C. difficile diarrhea Acute ~02/12/17 Subarachnoid hemorrhage Acute
[2017-02-27] MEDS: ACETAMINOPHEN 500 MG TAB TUBE PRN ×2 (16:29→22:05)
[2017-02-28 04:43] LABS: % IMMATURE GRANULYOCYTES 0.4 % (0.0-1.1); ABSOLUTE IMMATURE GRANULOCYTES 0.03 10^3/uL (0.00-0.10); ADD DIFF? NO; ADD MORPH? NO; ADD SCAN? NO; ATYPICAL LYMPHOCYTE FLAG 20 (0-99); FRAGMENT RBC FLAG 0 (0-99); HEMATOCRIT 37.4 % (38.0-47.0); LEFT SHIFT FLG 0 (0-99); LIPEMIA HEMOLYSIS FLAG 80 (0-99); MEAN CELL HEMOGLOBIN 33.3 pg (27.9-34.1); MEAN CELL HEMOGLOBIN CONCENTR. 32.1 g/dL (32.4-36.7); MEAN CELL VOLUME 103.9 fL (81.5-99.8); PLATELET CLUMPS FLAG 0 (0-99); PLATELET COUNT 232 10^3/uL (150-400); RED CELL DISTRIBUTION WIDTH 12.6 % (11.5-15.2)
[2017-02-28 05:11] LABS: ALANINE AMINOTRANSFERASE 55 IU/L (9-52); ALBUMIN 3.3 g/dL (3.5-5.0); ALKALINE PHOSPHATASE 96 IU/L (38-126); ANION GAP 10 mEq/L (8-16); ASPARTATE AMINOTRANSFERASE 24 IU/L (14-46); BILIRUBIN,TOTAL 0.5 mg/dL (0.1-1.4); CALCIUM 9.4 mg/dL (8.5-10.4); CARBON DIOXIDE 26 mEq/l (22-31); CHLORIDE 105 mEq/L (97-110); CREATININE 0.4 mg/dL (0.6-1.0); GLOMERULAR FILTRATION RATE > 60; GLUCOSE 83 mg/dL (70-100); POTASSIUM 3.8 mEq/L (3.5-5.2); SODIUM 141 mEq/L (134-144); TOTAL PROTEIN 6.2 g/dL (6.3-8.2)
[2017-02-28] MEDS: HEPARIN 5,000 UNIT/0.5 ML SYR SC SCH ×2 (09:23→23:18)
[2017-02-28] MEDS: levETIRAcetam 500 MG/5 ML UDCUP TUBE SCH ×2 (09:23→23:21)
[2017-02-28] MEDS: ACETAMINOPHEN 500 MG TAB TUBE PRN ×2 (09:23→23:20)
[2017-02-28] MEDS: SENNOSIDES 17.6 MG/10 ML UDL TUBE SCH ×2 (09:23→23:22)
[2017-02-28] MEDS: BACITRACIN OINTMENT 1 PACKET TP SCH ×2 (09:40→23:19)
[2017-02-28] MEDS: FAMOTIDINE 20 MG TAB TUBE SCH ×2 (09:40→23:20)
[2017-02-28] MEDS: CHLORHEXIDINE GLUCONATE 15 ML UDL PO SCH ×2 (09:42→23:21)
--- NOTE | 2017-02-28 11:12 | HOSPPROG ---
Hospitalist Progress Note Assessment/Plan: Patient is a 46-year-old female with history of moderate to heavy alcohol use and chronic back pain. She presented to the emergency room on February 02 with a headache. She was on her way to work and had an accident. There is concern that she had been drinking. 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 * acute subarachnoid hemorrhage due to aneurysm with resultant CVA Status post coiling On Keppra and nimodipine Continue care per Neurosurgery Status MANAGER CATEGORY shunt * acute hypoxemic respiratory failure Had been on the ventilator in the ICU Status post antibiotics for h influenza now on room air * possible pneumonia Received treatment with azithromycin * C diff colitis treated/ done w the vancomycin had one loose stool today *intermittent tachycardia during her stay resolved had a CTA on feb 23/ PE *hx of alcohol use * nutrition reviewed her care with the ST / she is not aspirating will need 1:1 monitoring while eating feeding tube dc * DVT prophylaxis SCDs and heparin * disposition & plan possible [facility] placement early next week, Subjective: Brenda has no complaints. Objective: Vital Signs Temp Pulse Resp BP Pulse Ox 36.7 C 85 16 113/81 H 92 02/28/17 07:32 02/28/17 07:32 02/28/17 07:32 02/28/17 07:32 02/28/17 07:32 Laboratory Results 02/28/17 04:15 02/28/17 04:15 02/27/17 02/28/17 03/01/17 05:59 05:59 05:59 Intake Total 3050 1075 Output Total 450 2400 Balance 2600 -1325 - Physical Exam Constitutional: no apparent distress, appears nourished, not in pain Eyes: PERRL Ears, Nose, Mouth, Throat: hearing normal Cardiovascular: regular rate and rhythym Respiratory: no respiratory distress Gastrointestinal: normoactive bowel sounds Skin: warm Musculoskeletal: other (can move right hand, not anti gravity/ trace movement with left hand, not able to move toes) Neurologic: AAOx3, sensation intact bilaterally Psychiatric: interacting appropriately ICD10 Worksheet Patient Problems: Problems Problem Status Onset Aneurysm of anterior communicating artery Acute C. difficile diarrhea Acute ~02/12/17 Subarachnoid hemorrhage Acute
--- NOTE | 2017-02-28 12:34 | NEUSURGPN ---
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 Diff being managed on Vanc per hospitalist -Please contact neurosurgery with any changes in neuro status/exam Subjective: Patient awake watching the [employer]psByTips game Objective: RUE 4/5 strength, LUE flicker movement only 1/5 B/L LE 0/5 Patient grimice to painful stimuli to BLE wounds c/d/i Neuro Check Frequency: per routine Urinary Catheter Indication: Accurate I & O Required Catheter Insertion Date: 02/06/17 - Physician Discussed Patient with : Maria Teresa Neurosurgery Physical Exam - Vitals, I&O, Labs I and O 02/27/17 02/28/17 03/01/17 05:59 05:59 05:59 Intake Total 3050 1075 Output Total 450 2400 Balance 2600 -1325 Weight 69.9 kg 71.078 kg 69.5 kg Intake: Oral (ml) 675 IV Intake (ml) 1200 IV Infused (ml) 1000 400 Ns 1,000 ml @ 100 mls/hr 1000 400 IV CONT MILVIA Rx#: [id number] Tube Feeding (ml) 750 Tube Flush (ml) 100 Output: Urine (ml) 450 2400 Catheter 2000 Incontinence 450 400 Other: Intake Quantity Yes Sufficient Number of Stools Incontinence 1 1 Vital Signs Temp Pulse Resp BP Pulse Ox 36.8 C 88 16 103/64 100 02/28/17 11:26 02/28/17 11:26 02/28/17 11:26 02/28/17 11:26 02/28/17 11:26 Laboratory Results 02/28/17 04:15 02/28/17 04:15 ICD10 Worksheet Patient Problems: Problems Problem Status Onset Aneurysm of anterior communicating artery Acute C. difficile diarrhea Acute ~02/12/17 Subarachnoid hemorrhage Acute
--- NOTE | 2017-03-01 08:20 | NEUSURGPN ---
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 Diff being managed on Vanc per hospitalist - requested assistance with disability documents, I referred him to case management to help facilitate this -Please contact neurosurgery with any changes in neuro status/exam Subjective: patient resting comfortably watching tv, non verbal Objective: RUE 4/5 strength, LUE flicker movement only 1/5 B/L LE 0/5 Patient grimice to painful stimuli to BLE Smiles with facial droop wounds c/d/i Neuro Check Frequency: per routine Urinary Catheter in Place: Yes Urinary Catheter Indication: Accurate I & O Required Catheter Insertion Date: 02/06/17 - Physician Discussed Patient with : Maria Teresa Neurosurgery Physical Exam - Vitals, I&O, Labs I and O 02/28/17 03/01/17 03/02/17 05:59 05:59 05:59 Intake Total 1075 500 Output Total 2400 1600 Balance -1325 -1100 Weight 71.078 kg 69.5 kg 71.696 kg Intake: Oral (ml) 675 500 IV Infused (ml) 400 Ns 1,000 ml @ 100 mls/hr 400 IV CONT MILVIA Rx#: [id number] Output: Urine (ml) 2400 1600 Catheter 2000 850 Incontinence 400 750 Other: Intake Quantity Yes Sufficient Number of Stools Incontinence 1 Vital Signs Temp Pulse Resp BP Pulse Ox 37.1 C 95 18 102/67 92 03/01/17 04:00 03/01/17 04:00 03/01/17 04:00 03/01/17 04:00 03/01/17 04:00 Laboratory Results 02/28/17 04:15 02/28/17 04:15 ICD10 Worksheet Patient Problems: Problems Problem Status Onset Aneurysm of anterior communicating artery Acute C. difficile diarrhea Acute ~02/12/17 Subarachnoid hemorrhage Acute
[2017-03-01] MEDS: HEPARIN 5,000 UNIT/0.5 ML SYR SC SCH ×2 (09:14→20:29)
[2017-03-01] MEDS: SENNOSIDES 17.6 MG/10 ML UDL TUBE SCH ×2 (09:14→22:21)
[2017-03-01] MEDS: CHLORHEXIDINE GLUCONATE 15 ML UDL PO SCH ×2 (09:15→20:29)
[2017-03-01] MEDS: FAMOTIDINE 20 MG TAB TUBE SCH ×2 (09:15→20:29)
[2017-03-01] MEDS: BACITRACIN OINTMENT 1 PACKET TP SCH ×2 (09:15→20:29)
[2017-03-01] MEDS: levETIRAcetam 500 MG/5 ML UDCUP TUBE SCH ×2 (10:23→20:28)
--- NOTE | 2017-03-01 12:16 | HOSPPROG ---
Hospitalist Progress Note Assessment/Plan: Patient is a 46-year-old female with history of moderate to heavy alcohol use and chronic back pain. She presented to the emergency room on February 02 with a headache. She was on her way to work and had an accident. There is concern that she had been drinking. 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 * acute hypoxemic respiratory failure Had been on the ventilator in the ICU Status post antibiotics for h influenza now on room air * possible pneumonia Received treatment with azithromycin * C diff colitis treated/ done w the vancomycin had one loose stool today *intermittent tachycardia during her stay resolved had a CTA on feb 23/ no PE *hx of alcohol use * nutrition reviewed her care with the ST / she is not aspirating will need 1:1 monitoring while eating feeding tube dc * DVT prophylaxis SCDs and heparin * disposition & plan probable [facility] placement tomorrow/ dc sanchez/ she is no longer on treatment for c diff Subjective: Brenda has no complaints/ working w PT and sitting up. Objective: Vital Signs Temp Pulse Resp BP Pulse Ox 36.7 C 101 H 17 131/79 H 95 03/01/17 08:00 03/01/17 08:00 03/01/17 08:00 03/01/17 08:00 03/01/17 08:00 Laboratory Results 02/28/17 04:15 02/28/17 04:15 02/28/17 03/01/17 03/02/17 05:59 05:59 05:59 Intake Total 1075 500 Output Total 2400 1600 Balance -1325 -1100 - Physical Exam Constitutional: no apparent distress, appears nourished, uncomfortable Eyes: PERRL Ears, Nose, Mouth, Throat: hearing normal Respiratory: no respiratory distress Genitourinary: sanchez in urethra Skin: warm Musculoskeletal: other (minimal movement with right hand, poss trace w left hand ) Neurologic: AAOx3 Psychiatric: interacting appropriately, not anxious ICD10 Worksheet Patient Problems: Problems Problem Status Onset Aneurysm of anterior communicating artery Acute C. difficile diarrhea Acute ~02/12/17 Subarachnoid hemorrhage Acute
--- NOTE | 2017-03-01 15:07 | ASMTCMCOM ---
CM Note CM Note Notes: Insurance auth in for pt to go to [facility] tomorrow. Stretcher transport set up w [facility] for 03/02/17 at 10:30a, neurosurgery aware to d/c early. Pt Mike updated. Report for RN is [phone]. Imaging and radiology to be obtained to transport w pt. Date Signed: 03/01/2017 03:06 PM Electronically Signed By:JULIANNE Phelps
--- NOTE | 2017-03-02 07:29 | PDIAF ---
- Diagnosis Diagnosis: Acomm aneurysm, hydrocephalus, dysphagia, C diff Code Status: Full Code - Medication Management Discharge Medications: Medications to Continue on Transfer Acetaminophen [Tylenol ES 500 mg (*)] 1,000 mg TUBE TID PRN tab 03/02/17 [Last Taken Unknown] Alteplase [Cathflo Activase 2 mg (*)] 2 mg IVP PRN PRN vial 03/02/17 [Last Taken Unknown] Bacitracin Ointment 1 pita TP BID pkt 03/02/17 [Last Taken Unknown] Famotidine [Pepcid 20 MG (*)] 20 mg TUBE BID tab 03/02/17 [Last Taken Unknown] Heparin [Heparin SC 5000 unit/0.5 ml (*)] 5,000 unit SC BID syr 03/02/17 [Last Taken Unknown] Ondansetron HCl Pf [Zofran 4 mg Inj (*)] 4 mg IVP Q6 PRN vial 03/02/17 [Last Taken Unknown] Petrolat,Wht/Min Oil/Sod Chl [Refresh P.m. Ointment] 1 pita EACHEYE HS PRN opht.oint 03/02/17 [Last Taken Unknown] levETIRAcetam [Keppra Oral Liquid] 750 mg PO BID 90 Days bottle 03/02/17 [Last Taken Unknown] Discharge Medications: Refer to the Discharge Home Medication list for PRN reason. PICC Care - Routine: Yes - Orders Services needed: Registered Nurse, Master Heel Cutter, Physical Therapy, Occupational Therapy, Speech Language Pathologist Diet Recommendation: no restrictions on diet Diet Texture: Dysphagia 2 - Mechanically Altered - Chopped, Ground, Dysphagia 1 - Pureed, Honey Thick Liquids, Meds Crushed in Puree Garcia: No Wound Care Instructions: Monitor scalp and abdominal incisions daily - Follow Up Care Current Providers and Referrals: KEON CHAPIN [Other]
--- NOTE | 2017-03-02 07:34 | SOAPPROG ---
SOAP Progress Note Assessment/Plan: Assessment: Status post Acomm aneurysm on 02/02/17. Post procedure severe vasospasm and ultimately developed Hydrocephalus. Right VPS placement for hydrocephalus Post op C diff treated with Vanco - now completed. Has made slow progress neurologically Plan: transfer to [facility] today CPM with PT/OT/ST discussed with Dr. Morel follow up with Dr. Morel upon discharge from [facility] Subjective: eyes closed, opens to verbal stimulation. Appears comfortable. Smiles Objective: Vital Signs Temp Pulse Resp BP Pulse Ox 36.7 C 97 16 119/85 H 91 L 03/02/17 04:00 03/02/17 04:00 03/02/17 04:00 03/02/17 04:00 03/02/17 04:00 Laboratory Results 02/28/17 04:15 02/28/17 04:15 03/01/17 03/02/17 03/03/17 05:59 05:59 05:59 Intake Total 500 1100 Output Total 1600 1200 Balance -1100 -100 NEURO: PERRLA Oriented x 3 follows commands with squeeze and showing 2 fingers on right hand not moving either leg, but says she can feel sensation no movement LUE abdominal incsion CDI scalp incision CDI ICD10 Worksheet Patient Problems: Problems Problem Status Onset Aneurysm of anterior communicating artery Acute C. difficile diarrhea Acute ~02/12/17 Subarachnoid hemorrhage Acute
--- NOTE | 2017-03-02 08:43 | HOSPPROG ---
Hospitalist Progress Note Assessment/Plan: Patient is a 46-year-old female with history of moderate to heavy alcohol use and chronic back pain. She presented to the emergency room on February 02 with a headache. She was on her way to work and had an accident. There is concern that she had been drinking. 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 Subjective: Brenda said she is so happy to go to rehab. Objective: Vital Signs Temp Pulse Resp BP Pulse Ox 36.7 C 97 16 119/85 H 91 L 03/02/17 04:00 03/02/17 04:00 03/02/17 04:00 03/02/17 04:00 03/02/17 04:00 Laboratory Results 02/28/17 04:15 02/28/17 04:15 03/01/17 03/02/17 03/03/17 05:59 05:59 05:59 Intake Total 500 1100 Output Total 1600 1200 Balance -1100 -100 - Physical Exam Constitutional: no apparent distress, not in pain Eyes: PERRL Ears, Nose, Mouth, Throat: hearing normal Respiratory: no respiratory distress Gastrointestinal: normoactive bowel sounds, soft, non-tender abdomen Skin: warm Musculoskeletal: other (left upper ext w trace movement, right hand with some strength, unable to go anti gravity/ no movement from lower ext, sensation intact) Neurologic: AAOx3 Psychiatric: interacting appropriately ICD10 Worksheet Patient Problems: Problems Problem Status Onset Aneurysm of anterior communicating artery Acute C. difficile diarrhea Acute ~02/12/17 Subarachnoid hemorrhage Acute
[2017-03-02 08:51] VITALS: BP 133/87; PULSE 103; RESP 18; TEMP 98.1; O2SAT 90
[2017-03-02] MEDS: HEPARIN 5,000 UNIT/0.5 ML SYR SC SCH (09:35)
[2017-03-02] MEDS: FAMOTIDINE 20 MG TAB TUBE SCH (09:35)
[2017-03-02] MEDS: CHLORHEXIDINE GLUCONATE 15 ML UDL PO SCH (09:35)
[2017-03-02] MEDS: ACETAMINOPHEN 500 MG TAB TUBE PRN (09:35)
[2017-03-02] MEDS: levETIRAcetam 500 MG/5 ML UDCUP TUBE SCH (09:36)
[2017-03-02] MEDS: SENNOSIDES 17.6 MG/10 ML UDL TUBE SCH (09:36)
[2017-03-02] MEDS: BACITRACIN OINTMENT 1 PACKET TP SCH (09:45)
--- NOTE | 2017-03-02 10:47 | ASDISCHSUM ---
Discharge Information Plan Status:Inpatient Rehab Medically Cleared to Leave: Discharge Date:03/02/2017 10:34 AM CM D/C Disposition: ADT D/C Disposition:Rehab Color Receiver Care Projected Discharge Date:03/01/2017 11:00 AM Transportation at D/C: Discharge Delay Reason: Follow-Up Date:03/01/2017 11:00 AM Discharge Slot: Final Diagnosis: Placement Information Referral Type:*Fci/SNF Referral ID:[id number] Provider Name: Address 1: Phone Number: Address 2: Fax Number: City: Selection Factors: State: Referral Type:Rehabilitation Hospital Referral ID:[id number] Provider Name:[facility] Address 1:[address] [place] [address] Phone Number: Address 2: Fax Number: [facility]:[place] Selection Factors: State:[place] Referral Type:Acute Care Referral ID:[id number] Provider Name: Address 1: Phone Number: Address 2: Fax Number: [facility]: Selection Factors: State: Patient Contact Information Contact Name:ZARINA Relationship: Address:[address] [place] [address] City:[place] Alternate Phone: [facility]/Zip Code:[place] [address] Email: Financial Information Financial Class:HMO and PPO Plans Primary Plan Desc:DIMITRI LOBO PPO Primary Plan Number:[id number] Secondary Plan Desc: Secondary Plan Number: Assessment Information [facility] Initial CM Assessment Living Arrangements What is your living Answers: With Spouse arrangement? Who do you live with? Case Management Evaluation Functional: ADL / IADL Answers: Chronic Illness Performance Deficits Due to: Psychosocial Needs: Answers: Active Substance Abuse Discharge Plan Comments Coordination Status Comments Notes: 46yo female admitted for SNYDER, AMS, Has a hx of Chronic back pain-narc dependence, ETOH. Pt ran out of her oxycodone meds. CT Scan revealed SAH, hydrocephalus. Pt lives w/her . CM to follow for D/C needs. Date Signed: 02/02/2017 02:55 PM Electronically Signed By:Claudia Acevedo LCSW [facility] Initial CM Assessment Living Arrangements What is your living Answers: With Spouse arrangement? Who do you live with? Type Of Residence What kind of residence do Answers: House you live in? Case Management Evaluation Psychosocial Needs: Answers: Active Substance Abuse Education Needs Answers: Substance Abuse Counseling Discharge Plan Comments Coordination Status Comments Notes: Patient presented to the ER w/ headache and altered mental status. Patient has a hx of alcoholism. Patient was admitted for subarachnoid hemorrhage and ETOH. She has had a stroke secondary to severe vasospasm and acute respiratory failure. Patient is stable on mechanical ventilation. Spl has been ordered. D/C needs unknown at this time. CM will follow. Date Signed: 02/05/2017 02:36 PM Electronically Signed By:Silvana Mccarthy LCSW [facility] CM Progress Note CM Note CM Note Notes: Met briefly with patient's , son, mother and other relatives. Dr. Morel had spoken to them about his hopes and expectations for patient. Asked family if they might be interested in a "Family Meeting" to talk about what they had just heard, they were cautiously hopeful and felt that they didn't need a meeting today but possibly . Patient may be needing a trach and PEG towards the end of the week. Date Signed: 02/09/2017 06:03 PM Electronically Signed By:Claudia Acevedo LCSW [facility] CM Progress Note CM Note CM Note Notes: Spoke with patient's who says he is doing ok. He is more concerned about patient's mother. She is supposed to visit sometime today. Will offer emotional support if she returns this afternoon as well as scheduling of family meeting if she is interested. CM will follow. Date Signed: 02/12/2017 04:25 PM Electronically Signed By:Silvana Mccarthy LCSW [facility] CM Progress Note CM Note CM Note Notes: ICU Rounds today, RN and MD's report that patient seems to be "coming around". Swallow eval to be ordered as well as therapy evaluations. Date Signed: 02/14/2017 04:13 PM Electronically Signed By:Claudia Acevedo LCSW [facility] CM Progress Note CM Note CM Note Notes: PT/OT are still uncertain about SNF or LTAC. CM will follow. Date Signed: 02/17/2017 12:27 PM Electronically Signed By:Silvana Mccarthy LCSW [facility] Progress Note CM Note CM Note Notes: Spoke at length with patient's nurse who states the ventricular peritoneal shunt placed today is galeano to seeing if their is possibly more improvement. They leave the shunt in place for 3 days and then reassess where patient's functioning is at. PT is now recommending SNF rehab. Was unable to get in touch with patient's to discuss a plan. Next steps - get 's input and send referrals to SNF he has chosen. CM will follow. Date Signed: 02/19/2017 04:25 PM Electronically Signed By:Silvana Mccarthy LCSW [facility] [place] Progress Note CM Note CM Note Notes: Patient moved to Med Surg. Spoke to who has talked to patient about PEG tube. Patient prefers to have a PEG rather than NG tube. If she gets a PEG could go to SNF Rehab. prefers [place] SNF's. Gave him addresses for [facility] to go look. Need an order from Neurosurgery for a PEG. Date Signed: 02/21/2017 04:50 PM Electronically Signed By:Claudia Acevedo LCSW [facility] Progress Note CM Note CM Note Notes: Pt SNF [facility] in [facility] due to [place] insurance. Referrals sent to each; [facility] has no insurance beds, [facility] can accept. Insurance authorization is needed, Sophia noel notified to pursue auth. Pt lauramayra Mike was updated, he will try to tour . Date Signed: 02/22/2017 12:39 PM Electronically Signed By:JULIANNE Phelps [facility] CM Progress Note CM Note CM Note Notes: [facility] accepts pt and has [place] ins authorization. SNF still rec at this time, pt may need peg. Updates sent to . Of note: [facility] cannot accept [facility]ie [facility]. Date Signed: 02/24/2017 02:23 PM Electronically Signed By:JULIANNE Phelps [facility] CM Progress Note CM Note CM Note Notes: New referral sent to [facility] for consideration per OT/PT rec. Date Signed: 02/24/2017 03:07 PM Electronically Signed By:JULIANNE Phelps [facility] CM Progress Note CM Note CM Note Notes: Pt to have swallow video tomorrow, [facility] need peg[facility]. Also, [facility] acute rehab can take pt, they would need ins auth which can take 24-72 hours. [facility]. Date Signed: 02/25/2017 03:10 PM Electronically Signed By:JULIANNE Phelps [facility] Progress Note CM Note CM Note Notes: Pt had swallow eval, can swallow, feeding tube dc and pt can fed 1:1. [facility] [phone] completed on-site eval and pt can go to [facility] next week pending ins auth. Rem[facility]ios reports realistically [place] auth will be Wednesday. will send any updated therapy notes to [facility] fax @ [phone]. Date Signed: 02/26/2017 05:01 PM Electronically Signed By:JULIANNE Phelps [facility] Progress Note CM Note CM Note Notes: Insurance auth in for pt to go to [facility] tomorrow. Stretcher transport set up w [facility] for 03/02/17 at 10:30a, neurosurgery aware to d/c early. Pt leanna mondragon. Report for RN is [phone]. Imaging and radiology to be obtained to transport w pt. Date Signed: 03/01/2017 03:06 PM Electronically Signed By:JULIANNE Phelps [facility] CM Progress Note CM Note CM Note Notes: Pt medically stable for d/c to [facility]. SALLY Menendez to call report. Orders faxed to [facility]. Date Signed: 03/02/2017 10:46 AM Electronically Signed By:JULIANNE Phelps Intervention Information
--- NOTE | 2017-03-02 10:47 | ASMTCMCOM ---
CM Note CM Note Notes: Pt medically stable for d/c to [facility]. RN Gemma to call report. Orders faxed to [place]. Date Signed: 03/02/2017 10:46 AM Electronically Signed By:JULIANNE Phelps
== END 2017-03-02 10:34 | DRG 20 ==
LOC: F2N 12:46 → F3N 02-21 12:32
PROVIDERS: ADMIT Neurological Surgery; ATTEND Neurological Surgery
PROC: 5A1955Z Respiratory Ventilation, Greater than 96 Consecutive Hours (ICD-10-PCS; principal; 2017-02-02)
PROC: 009600Z Drainage of Cerebral Ventricle with Drainage Device, Open Approach (ICD-10-PCS; principal; 2017-02-02)
PROC: 037L3ZZ Dilation of Left Internal Carotid Artery, Percutaneous Approach (ICD-10-PCS; 2017-02-04)
PROC: 037K3ZZ Dilation of Right Internal Carotid Artery, Percutaneous Approach (ICD-10-PCS; 2017-02-04)
PROC: 03VG3DZ Restriction of Intracranial Artery with Intraluminal Device, Percutaneous Approach (ICD-10-PCS; 2017-02-04)
PROC: 0B9J8ZZ Drainage of Left Lower Lung Lobe, Via Natural or Artificial Opening Endoscopic (ICD-10-PCS; 2017-02-06)
PROC: 0B9M8ZZ Drainage of Bilateral Lungs, Via Natural or Artificial Opening Endoscopic (ICD-10-PCS; 2017-02-07)
PROC: 0WJG4ZZ Inspection of Peritoneal Cavity, Percutaneous Endoscopic Approach (ICD-10-PCS; 2017-02-19)
PROC: 00163J6 Bypass Cerebral Ventricle to Peritoneal Cavity with Synthetic Substitute, Percutaneous Approach (ICD-10-PCS; 2017-02-19)
PROC: 02HV33Z Insertion of Infusion Device into Superior Vena Cava, Percutaneous Approach (ICD-10-PCS; 2017-02-24)
DX: I60.11 Nontraumatic subarachnoid hemorrhage from right middle cerebral artery (principal); J18.8 Other pneumonia, unspecified organism; J96.01 Acute respiratory failure with hypoxia; G91.8 Other hydrocephalus; A04.7 Enterocolitis due to Clostridium difficile; F10.20 Alcohol dependence, uncomplicated; G89.29 Other chronic pain; I10 Essential (primary) hypertension; Z72.0 Tobacco use
CPT/HCPCS: 92507-GN; 92523-GN; 92526-GN; 92610-GN; 92611-GN; 96365; 97112-GO; 97112-GP; 97163-GP; 97167-GO; 97530-GO; 97530-GP; C1725; C1751; C1769; C1887; C1893; C1894; G0480; J0130; J0171; J0456; J0690; J0696; J1100; J1265; J1644; J1953; J2001; J2060; J2250; J2260; J2370; J2405; J2704; J2997; J3010; P9041; P9047; Q9967

== ENCOUNTER → 2017-12-11 | Outpatient (CLI) | payer MEDICAID ==
[~2017-12-11] MED LIST: GADOBUTROL 10 ML VIAL IVP ONE
== END ==
LOC: FIMAGING 10:18
PROVIDERS: ATTEND Physician Assistant
DX: S06.6X0A Traumatic subarachnoid hemorrhage without loss of consciousness, initial encounter (principal)
CPT/HCPCS: A9585